=== PATIENT | male | born 1950 | race Caucasian/White ===

== ENCOUNTER 2022-11-27 17:16 | Inpatient (IN) | payer MEDICAID, MEDICARE ==
[~2022-11-27] VITALS: Ht 177 cm; Wt 76.4 kg
[2022-11-27] MEDS: RT-ALBUTEROL/IPRATROPIUM 3 ML (DUONEB) VIAL INH SCH (00:39)
[~2022-11-27 17:16] MED LIST: AMLO1CAP9 PO; ASP81TEC PO; CLOP75TA PO; DCS100C PO; DEXL60CA5 PO; DIAZ-345 PO; EZET1TAB41 PO; HYDR-3720 PO; NF-ESOM40C PO; NTR.4SL SL; OXC40TCR PO; OXYC40TA49 PO; POTA99TA7 PO; TMSL.4C PO
[2022-11-27] MEDS ORDERED: fentaNYL INJ 100 MCG/2 ML AMP IVP STA (17:22)
--- NOTE | 2022-11-27 17:22 | ED General ---
General Stated Complaint: POST CODE History of Present Illness Date Seen by Provider: Nov 27, 2022 Time Seen by Provider: 17:21 Initial Comments 72-year-old male brought in post CPR. Patient had a witnessed collapse. Local fire department/privacy officer arrived on scene or he had an AED placed. Patient had 3 shocks in the field per AED. EMS arrived and CPR was in progress. Once EMS arrived. Patient was found to have a pulse. Patient had decreased responsiveness but was breathing on his own. In route patient became little bit more responsive, groaning complaining of pain upon arrival to the ER. Patient appears to have decreased movement in his left arm however he was able to move his left leg. He appears to be favoring more to the right side and leaning more to the right than the left. He does occasionally lift his head just groans out and complains of pain but provides no further discernible speech or information. EMS knows that he does have a prior history of heart attack but his not really sure much other information on his past medical history. It is unknown how long from the collapsed to went CPR and AED shocks were administered. (DIEGO ROBIN DO) Allergies and Home Medications Allergies Coded Allergies: No Known Drug Allergies (Unverified , 03/07/12) Patient Home Medication List Home Medication List Reviewed: Yes (DIEGO ROBIN DO) Amlodipine Besylate (Amlodipine Besylate) 10 Mg Tablet, 10 MG PO HS, (Reported) Entered as Reported by: NAYELI CHEW on 11/30/221504 Last Action: Held Aspirin (Aspirin EC) 81 Mg Tablet.dr, 81 MG PO HS, (Reported) Entered as Reported by: NAYELI CHEW on 11/30/22 426 Last Action: Held Atorvastatin Calcium (Atorvastatin Calcium) 40 Mg Tablet, 40 MG PO HS, (Reported) Entered as Reported by: NAYELI CHEW on 11/30/22 150 Last Action: Continued Docusate Sodium (Docusate Sodium) 100 Mg Capsule, 200 MG PO BID, (Reported) Entered as Reported by: NAYELI CHEW on 11/30/221528 Last Action: Continued Oxycodone HCl/Acetaminophen (Oxycodone-Acetaminophen 10-325) 10 Mg-325 Mg Tablet, 1 EACH PO Q4H PRN for PAIN-MODERATE (5-7), (Reported) Entered as Reported by: NAYELI CHEW on 11/30/221504 Last Action: Held Propranolol HCl (Propranolol HCl) 20 Mg Tablet, 20 MG PO TID PRN for TREMORS, (Reported) Entered as Reported by: NAYELI CHEW on 11/30/221504 Last Action: Continued Discontinued Medications Amlodipine/Benazepril (Amlodipine-Benazepril 10-20 Mg) 1 Each Capsule, 10-20 MG PO DAILY, (Reported) Discontinued Reason: No Longer Taking Entered as Reported by: DESIRE BRADLEY on 03/04/12 100 Last Action: Discontinued Aspirin (Aspirin Ec 81 Mg) 81 Mg Tabec, 81 MG PO DAILY, (Reported) Discontinued Reason: No Longer Taking Entered as Reported by: DESIRE BRADLEY on 03/04/121003 Last Action: Discontinued Clopidogrel Bisulfate (Plavix 75 Mg) 75 Mg Tablet, 75 MG PO MON, WED, FRI, (Reported) Discontinued Reason: No Longer Taking Entered as Reported by: DESIRE BRADLEY on 03/04/121003 Last Action: Discontinued Dexlansoprazole (Dexilant) 60 Mg Bernardo., 60 MG PO DAILY, (Reported) Discontinued Reason: No Longer Taking Entered as Reported by: RUBINA LEYVA on 04/14/13 1026 Last Action: Discontinued Docusate Sodium (Colace) 100 Mg Capsule, 200 MG PO BID, (Reported) Discontinued Reason: No Longer Taking Entered as Reported by: RUBINA LEYVA on 04/14/13 1026 Last Action: Discontinued Ezetimibe/Simvastatin (Vytorin 10/80 Tablet) 1 Tab Tablet, 10-80 TAB PO DAILY, (Reported) Discontinued Reason: No Longer Taking Entered as Reported by: DESIRE BRADLEY on 03/04/121003 Last Action: Discontinued Hydrocodone Bit/Acetaminophen (Hydrocodone-Apap 10-325 Tablet) 1 Each Tablet, 2 TAB PO QID, (Reported) Discontinued Reason: No Longer Taking Entered as Reported by: RUBINA LEYVA on 04/14/13 1028 Last Action: Discontinued Nitroglycerin (Nitrostat) 0.4 Mg Tab, 0 SL PRN, (Reported) Discontinued Reason: No Longer Taking Entered as Reported by: RUBINA LEYVA on 04/14/13 1028 Last Action: Discontinued Oxycodone Hcl (Oxycontin) 40 Mg Tab.sr.12h, 40 MG PO TID, (Reported) Discontinued Reason: No Longer Taking Entered as Reported by: RUBINA LEYVA on 04/14/13 1028 Last Action: Discontinued Tamsulosin Hcl (Flomax) 0.4 Mg Cap, 0.4 MG PO HS, (Reported) Discontinued Reason: No Longer Taking Entered as Reported by: DESIRE BRADLEY on 03/04/12 1004 Last Action: Discontinued Review of Systems Review of Systems Constitutional: see HPI, other (Review of systems limited to EMS report) (DIEGO ROBIN DO) Physical Exam Vital Signs Vital Signs - First Documented 11/27/22 11/27/22 17:16 21:15 Temp 36.0 Pulse 100 Resp 24 B/P (MAP) 185/135 (152) Pulse Ox 97 O2 Delivery OxyMask O2 Flow Rate 4.00 (GALLO DE LEON MD) Vital Signs Capillary Refill : (DIEGO ROBIN DO) Height, Weight, BMI Height: '" Weight: lbs. oz. kg; BMI Method: General Appearance: Other (Disheveled, chronically ill,) HEENT: PERRL/EOMI Neck: Supple Respiratory: Lungs Clear, Normal Breath Sounds Cardiovascular: Regular Rate, Rhythm Extremity: Normal Capillary Refill, Other (Decreased movement left arm) Neurologic/Psychiatric: Aphasia; No Facial Droop; Other (DIEGO ROBIN DO) Focused Exam Lactate Level 11/27/22 17:20: Lactic Acid Level 6.05*H 11/27/22 20:25: Lactic Acid Level 1.32 (GALLO DE LEON MD) Lactic Acid Level Laboratory Tests Test 11/27/22 17:20 11/27/22 20:25 Lactic Acid Level 6.05 MMOL/L (0.50-2.00) *H 1.32 MMOL/L (0.50-2.00) (GALLO DE LEON MD) Progress/Results/Core Measures Suspected Sepsis SIRS Temperature: Pulse: Respiratory Rate: Laboratory Tests 11/27/22 17:20: Blood Pressure / Mean: 11/27/22 17:20: Laboratory Tests 11/27/22 17:20: (DIEGO ROBIN DO) Results/Orders Lab Results Laboratory Tests Test 11/27/22 17:20 11/27/22 17:45 11/27/22 18:28 11/27/22 20:25 Range/Units White Blood Count 16.6 H 4.3-11.0 10^3/uL Red Blood Count 5.16 4.30-5.52 10^6/uL Hemoglobin 15.7 13.3-17.7 g/dL Hematocrit 48 40-54 % Mean Corpuscular Volume 93 80-99 fL Mean Corpuscular Hemoglobin 30 25-34 pg Mean Corpuscular Hemoglobin Concent 33 32-36 g/dL Red Cell Distribution Width 12.5 10.0-14.5 % Platelet Count 325 130-400 10^3/uL Mean Platelet Volume 10.1 9.0-12.2 fL Immature Granulocyte % (Auto) 1 % Neutrophils (%) (Auto) 58 42-75 % Lymphocytes (%) (Auto) 34 12-44 % Monocytes (%) (Auto) 5 0-12 % Eosinophils (%) (Auto) 1 0-10 % Basophils (%) (Auto) 0 0-10 % Neutrophils # (Auto) 9.7 H 1.8-7.8 10^3/uL Lymphocytes # (Auto) 5.6 H 1.0-4.0 10^3/uL Monocytes # (Auto) 0.8 0.0-1.0 10^3/uL Eosinophils # (Auto) 0.2 0.0-0.3 10^3/uL Basophils # (Auto) 0.1 0.0-0.1 10^3/uL Immature Granulocyte # (Auto) 0.2 H 0.0-0.1 10^3/uL Neutrophils % (Manual) 53 % Lymphocytes % (Manual) 35 % Monocytes % (Manual) 6 % Reactive Lymphocytes 6 % Clumped Platelets OCC PLT CLUMP Prothrombin Time 14.1 12.2-14.7 SEC INR Comment 1.0 0.8-1.4 Activated Partial Thromboplast Time 32 24-35 SEC Sodium Level 139 135-145 MMOL/L Potassium Level 4.2 3.6-5.0 MMOL/L Chloride Level 106 98-107 MMOL/L Carbon Dioxide Level 17 L 21-32 MMOL/L Anion Gap 16 H 5-14 MMOL/L Blood Urea Nitrogen 12 7-18 MG/DL Creatinine 1.13 0.60-1.30 MG/DL Estimat Glomerular Filtration Rate 68 BUN/Creatinine Ratio 11 Glucose Level 238 H 70-105 MG/DL Lactic Acid Level 6.05 *H 1.32 0.50-2.00 MMOL/L Calcium Level 8.7 8.5-10.1 MG/DL Corrected Calcium 8.6 8.5-10.1 MG/DL Magnesium Level 2.1 1.6-2.4 MG/DL Total Bilirubin 0.4 0.1-1.0 MG/DL Aspartate Amino Transf (AST/SGOT) 69 H 5-34 U/L Alanine Aminotransferase (ALT/SGPT) 75 H 0-55 U/L Alkaline Phosphatase 66 40-136 U/L Troponin I 0.101 H <0.028 NG/ML C-Reactive Protein High Sensitivity 0.24 0.00-0.50 MG/DL B-Type Natriuretic Peptide 143.8 H <100.0 PG/ML Total Protein 6.7 6.4-8.2 GM/DL Albumin 4.1 3.2-4.5 GM/DL Serum Alcohol < 10 <10 MG/DL Urine Color YELLOW Urine Clarity CLEAR Urine pH 6.0 5-9 Urine Specific [place] >=1.030 1.016-1.022 Urine Protein 2+ H NEGATIVE Urine Glucose (UA) 1+ H NEGATIVE Urine Ketones NEGATIVE NEGATIVE Urine Nitrite NEGATIVE NEGATIVE Urine Bilirubin NEGATIVE NEGATIVE Urine Urobilinogen 1.0 < = 1.0 MG/DL Urine Leukocyte Esterase NEGATIVE NEGATIVE Urine RBC (Auto) 1+ H NEGATIVE Urine RBC 5-10 H /HPF Urine WBC 2-5 /HPF Urine Squamous Epithelial Cells 0-2 /HPF Urine Crystals NONE /LPF Urine Bacteria FEW H /HPF Urine Casts PRESENT /LPF Urine Hyaline Casts 25-50 H /LPF Urine Mucus SMALL H /LPF Urine Culture Indicated YES Urine Opiates Screen NEGATIVE NEGATIVE Urine Oxycodone Screen POSITIVE H NEGATIVE Urine Methadone Screen NEGATIVE NEGATIVE Urine Propoxyphene Screen NEGATIVE NEGATIVE Urine Barbiturates Screen NEGATIVE NEGATIVE Ur Tricyclic Antidepressants Screen NEGATIVE NEGATIVE Urine Phencyclidine Screen NEGATIVE NEGATIVE Urine Amphetamines Screen NEGATIVE NEGATIVE Urine Methamphetamines Screen NEGATIVE NEGATIVE Urine Benzodiazepines Screen NEGATIVE NEGATIVE Urine Cocaine Screen NEGATIVE NEGATIVE Urine Cannabinoids Screen NEGATIVE NEGATIVE Influenza Type A (RT-PCR) Not Detected Not Detecte Influenza Type B (RT-PCR) Not Detected Not Detecte SARS-CoV-2 RNA (RT-PCR) Not Detected Not Detecte Test 11/27/22 21:28 Range/Units Lab Scanned Report Referred Lab Report [id number] (GALLO DE LEON MD) Micro Results Microbiology 11/27/22 Urine Culture - Final, Complete NO GROWTH 11/27/22 Blood Culture - Preliminary, Resulted No growth (GALLO DE LEON MD) My Orders Orders - GALLO DE LEON MD Fentanyl Inj (Sublimaze Injection) (11/27/22 19:00) Ns Iv 1000 Ml (Sodium Chloride 0.9%) (11/27/22 19:05) Ct Angio Head/Neck (11/27/22 19:15) Fentanyl Inj (Sublimaze Injection) (11/27/22 19:15) Ct Angio Chest W (11/27/22 19:15) Iohexol Injection (Omnipaque 350 Mg/Ml 1 (11/27/22 19:45) Received Contrast (Hold Metformin- Contr (11/27/22 19:45) Ns (Ivpb) (Sodium Chloride 0.9% Ivpb Bag (11/27/22 19:45) Iohexol Injection (Omnipaque 350 Mg/Ml 1 (11/27/22 19:45) Received Contrast (Hold Metformin- Contr (11/27/22 19:45) Ns (Ivpb) (Sodium Chloride 0.9% Ivpb Bag (11/27/22 19:45) Protime With Inr (11/27/22 19:54) Partial Thromboplastin Time (11/27/22 19:54) Ed Admission (Communication) (11/27/22 20:01) Enoxaparin Injection (Lovenox Injection) (11/27/22 20:45) Metoprolol Tartrate Injection (Lopressor (11/27/22 20:45) Aspirin Suppository (Aspirin Suppository (11/27/22 20:42) (GALLO DE LEON MD) Medications Given in ED (GALLO DE LEON MD) Vital Signs/I&O 11/27/22 11/27/22 17:16 21:15 Temp 36.0 36.0 Pulse 100 78 Resp 24 16 B/P (MAP) 185/135 (152) 159/103 Pulse Ox 97 94 O2 Delivery OxyMask O2 Flow Rate 4.00 (GALLO DE LEON MD) Vital Signs/I&O Capillary Refill : (DIEGO ROBIN DO) Progress Note #1: Time: 18:26 Progress Note Patient care assumed at shift change from Dr Robin Progress Note #2: Time: 19:50 Progress Note Patient seen and evaluated by me, 72-year-old male with reported cardiac arrest status post AED shock x3 and ROSC prior to transport to this facility. My history is from outgoing provider, Dr. Robin. Evaluation today includes physical exam, CBC, chemistry, coag profile, troponin, lactic acid, blood cultures, chest x-ray, CT head without contrast, CT angio head neck and chest. Physical exam pertinent for well-developed well-nourished male in moderate distress due to some confusion and complaints of chest pain. Patient has some expressive aphasia, not really following commands. Heart is regular, lungs are crackly throughout. Chest wall is tender no subcutaneous emphysema is palpated. Abdomen is soft. Patient is noted to be moving all 4 extremities equally. Sensation appears to be grossly intact. Unable to accurately evaluate cranial nerves due to the patient's receptive aphasia as well/not following commands. Differential diagnosis based on history and physical exam includes arrhythmia, ACS, acute stroke (unlikely), sepsis, pulmonary embolism. Labs independently reviewed by me. CBC shows a leukocytosis of 16.6 with no left shift. Chem-12 shows a CO2 of 17 and anion gap of 16. Serum glucose 238. LFTs are slightly elevated. Lactic acid 6.05. Serum troponin 0.101. BNP 143.8. Alcohol is negative. Urinalysis shows few bacteria with 2+ protein and specific gravity 1.030. Patient is COVID and flu negative. Chest x-ray is independently reviewed by me, no infiltrate or effusion is noted. CT head noncontrast read by radiology as no acute intracranial abnormalities. Case is discussed with Dr. Bah on for cardiology this evening. Recommends consideration for CT angiography. Would also appreciate Lovenox 1 mg/kg twice daily, Toprol XL 100 mg p.o. now and daily. Aspirin 325 mg now and 81 mg p.o. daily. Plavix load of 300 mg and 75 mg p.o. daily. Case is also discussed with Dr. Murphy on for the [facility] service she is agreeable to CT angiography head and neck and then will do Kuet orders for the ICU. Patient has been quite agitated complaining of pain in his chest. Has been treated with IV fentanyl. Has had 2 L so far of normal saline. Based on weight at 118 kg for sepsis protocol his bolus would be 3540 mL. However do not suspect sepsis as the etiology of his lactic acidosis, likely as a result of resuscitative efforts on scene at the time of cardiac arrest. 3500 mL bolus not done at this time. Patient's systolic blood pressures in the 140s currently. At the time of this dictation coags are pending and CT angiography is being done. I did add CT angiography of the chest for completeness. ICU bed is available. supervisor pullet farm has been notified. Family member/ is at the bedside and is updated on plan of care and results. Progress Note #3: Time: 20:43 Progress Note Patient now hypertensive again 185/126. Heart rate 96. Question his ability to swallow due to his did dysarthria/aphasia. Will give Lopressor 5 mg IV, rectal aspirin and Lovenox has been added. Dr. Murphy is aware of the limitations of swallowing at this time. We will hold Plavix. Case was discussed with the eICU physician for Latonya on-call. (GALLO DE LEON MD) ECG Initial ECG Impression Date: Nov 27, 2022 Initial ECG Impression Time: 19:30 Initial ECG Rate: 96 Initial ECG Rhythm: Normal Sinus Initial ECG Intervals [place] interval 180 QRS [address] segment depression 1 mm in leads V5 and V6. Occasional PVCs noted. No ST segment elevation. (GALLO DE LEON MD) Diagnostic Imaging Diagonstic Imaging: CT Comments [facility], [facility]. [place], [place] NAME: DAVINA JIMENEZ [facility] REC#: [id number] PT STATUS: REG ER : 1950 PHYSICIAN: DIEGO ROBIN DO ADMIT DATE: 11/27/22/ER Draft Date of Exam:11/27/22 CT HEAD WO-R/O STROKE PROCEDURE: CT head wo r/o stroke. TECHNIQUE: Multiple contiguous axial images were obtained through the brain without the use of intravenous contrast. Auto Exposure Controls were utilized during the CT exam to meet ALARA standards for radiation dose reduction. INDICATION: Neuro deficit, altered mental status. COMPARISON: Unavailable. FINDINGS: No intracranial hyperdense hemorrhage or space-occupying mass. No hydrocephalus or midline shift. James-white matter differentiation is well preserved. Mild global atrophy. No hyperdense vessel sign. No acute calvarial abnormality. Mastoid air cells are clear. Near-total opacification of the ethmoid sinuses. IMPRESSION: 1. No acute intracranial hemorrhage or features of large territorial infarct. Dictated on workstation # [id number] Dict: 11/27/221810 Trans: 11/27/221814 [facility] [id number] Interpreted by: RYAN SOMMERS MD Electronically signed by: Gracie Imaging: Xray Plain Films/CT/US/NM/MRI: chest Comments [facility], [place] NAME: DAVINA JIMENEZ [facility] REC#: [id number] PT STATUS: REG ER : 1950 PHYSICIAN: DIEGO ROBIN DO ADMIT DATE: 11/27/22/ER Signed Date of Exam:11/27/22 CHEST 1 VIEW, AP/PA ONLY CHEST 1 VIEW, AP/PA ONLY Indication: Cardiac arrest Comparison: None available. Findings: No focal airspace disease in the visualized lungs. No pleural effusion or pneumothorax. Normal cardiomediastinal silhouette. Impression: 1. No acute cardiopulmonary process by portable radiography. Dictated by: Dictated on workstation # [id number] Dict: 11/27/221739 Trans: 11/27/221739 [facility] [id number] Interpreted by: RYAN SOMMERS MD Electronically signed by: RYAN SOMMERS MD 11/27/221739 (GALLO DE LEON MD) Critical Care Note Critical Care Start Time: 18:00 Stop Time: 20:44 Total Time (minutes) 40 minutes critical care time in evaluation and management of this postcode patient. Time includes initial evaluation of the patient, review and inte rpretation of labs, imaging. Review of radiologic studies. Discussion with independent historian, regarding past medical history. Discussion with Dr. Bah on for cardiology. Discussion with Dr. Murphy on for hospitalist [facility] service. Discussion with immediate eICU building energy consultant. Management of hypertension. (GALLO DE LEON MD) Departure Communication (Admissions) Time/Spoke to Admitting Phy: 19:[address] Murphy; CT Angio then will do admit orders Time/Spoke to Consulting Phy: 19:[address] Santiago (GALLO DE LEON MD) Impression Primary Impression: Cardiac arrest Additional Impressions: Elevated troponin History of CAD (coronary artery disease) Disposition: ADMITTED INPATIENT Condition: Critical Admissions Decision to Admit Reason: Admit from ER (General) Decision to Admit/Date: Nov 27, 2022 Time/Decision to Admit Time: 19:49 (GALLO DE LEON MD) Departure-Patient Inst. Referrals: NATHALIA CHRISTINE MD (PCP/Family) Primary Care Physician DIEGO ROBIN DO Nov 27, 2022 17:21 GALLO DE LEON MD Nov 27, 2022 18:30
[2022-11-27] MEDS ORDERED: ONDANSETRON 4 MG/2 ML (SDV) Z0FRAN IVP ONE (17:30)
[2022-11-27 17:32] LABS: BASOPHILS # (AUTO) 0.1 10^3/uL (0.0-0.1); BASOPHILS % (AUTO) 0 % (0-10); EOSINOPHILS # (AUTO) 0.2 10^3/uL (0.0-0.3); EOSINOPHILS % (AUTO) 1 % (0-10); HEMATOCRIT 48 % (40-54); HEMOGLOBIN 15.7 g/dL (13.3-17.7); LYMPHOCYTES # (AUTO) 5.6 10^3/uL (1.0-4.0); LYMPHOCYTES % (AUTO) 34 % (12-44); MEAN CORPUSCULAR HEMOGLOBIN 30 pg (25-34); MEAN CORPUSCULAR HGB CONC 33 g/dL (32-36); MEAN CORPUSCULAR VOLUME 93 fL (80-99); MEAN PLATELET VOLUME 10.1 fL (9.0-12.2); MONOCYTES # (AUTO) 0.8 10^3/uL (0.0-1.0); MONOCYTES % (AUTO) 5 % (0-12); NEUTROPHILS # (AUTO) 9.7 10^3/uL (1.8-7.8); NEUTROPHILS % (AUTO) 58 % (42-75); PLATELET COUNT 325 10^3/uL (130-400); WHITE BLOOD COUNT 16.6 10^3/uL (4.3-11.0)
[2022-11-27 17:41] LABS: ALBUMIN 4.1 GM/DL (3.2-4.5); CHLORIDE 106 MMOL/L (98-107); POTASSIUM 4.2 MMOL/L (3.6-5.0); SODIUM 139 MMOL/L (135-145)
[2022-11-27 17:42] LABS: CALCIUM 8.7 MG/DL (8.5-10.1)
--- NOTE | 2022-11-27 17:42 | Diagnostic Imaging Report ---
CHEST 1 VIEW, AP/PA ONLY Indication: Cardiac arrest Comparison: None available. Findings: No focal airspace disease in the visualized lungs. No pleural effusion or pneumothorax. Normal cardiomediastinal silhouette. Impression: 1. No acute cardiopulmonary process by portable radiography. Dictated by: Dictated on workstation # [id number]
[2022-11-27 17:44] LABS: GLUCOSE 238 MG/DL (70-105); TOTAL PROTEIN 6.7 GM/DL (6.4-8.2)
[2022-11-27 17:45] LABS: BILIRUBIN,TOTAL 0.4 MG/DL (0.1-1.0); CARBON DIOXIDE 17 MMOL/L (21-32)
[2022-11-27 17:47] LABS: ALKALINE PHOSPHATASE 66 U/L (40-136)
[2022-11-27 17:48] LABS: CREATININE SERUM 1.13 MG/DL (0.60-1.30); GFR ESTIMATED 68
[2022-11-27 17:49] LABS: BUN/CREATININE RATIO 11
[2022-11-27 17:50] LABS: ALANINE AMINOTRANSFERASE 75 U/L (0-55)
[2022-11-27 17:51] LABS: MAGNESIUM 2.1 MG/DL (1.6-2.4)
[2022-11-27 17:56] LABS: BILIRUBIN,URINE NEGATIVE (NEGATIVE); CLARITY,URINE CLEAR; COLOR,URINE YELLOW; GLUCOSE, URINE (UA) 1+ (NEGATIVE); KETONES,URINE NEGATIVE (NEGATIVE); LEUKOCYTE ESTERASE ,URINE NEGATIVE (NEGATIVE); NITRITE,URINE NEGATIVE (NEGATIVE); PROTEIN,URINE 2+ (NEGATIVE)
[2022-11-27 17:57] LABS: LYMPHOCYTES % (MANUAL) 35 %; MONOCYTES % (MANUAL) 6 %; NEUTROPHILS % (MANUAL) 53 %
[2022-11-27 17:58] LABS: PLATELET CLUMPS OCC PLT CLUMP; REACTIVE LYMPHOCYTES 6 %
[2022-11-27 18:12] LABS: BACTERIA,URINE FEW /HPF; HYALINE CASTS, URINE 25-50 /LPF; SQUAMOUS EPITHELIAL CELL,UR 0-2 /HPF
--- NOTE | 2022-11-27 18:15 | Diagnostic Imaging Report ---
PROCEDURE: CT head wo r/o stroke. TECHNIQUE: Multiple contiguous axial images were obtained through the brain without the use of intravenous contrast. Auto Exposure Controls were utilized during the CT exam to meet ALARA standards for radiation dose reduction. INDICATION: Neuro deficit, altered mental status. COMPARISON: Unavailable. FINDINGS: No intracranial hyperdense hemorrhage or space-occupying mass. No hydrocephalus or midline shift. James-white matter differentiation is well preserved. Mild global atrophy. No hyperdense vessel sign. No acute calvarial abnormality. Mastoid air cells are clear. Near-total opacification of the ethmoid sinuses. IMPRESSION: 1. No acute intracranial hemorrhage or features of large territorial infarct. Dictated by: Dictated on workstation # [id number]
[2022-11-27] MEDS ORDERED: fentaNYL INJ 100 MCG/2 ML AMP IVP ONE ×2 (19:00→19:15)
[2022-11-27] MEDS ORDERED: NS IV 1000 ML 1,000 ML IV STA (19:05)
[2022-11-27] MEDS ORDERED: IOHEXOL 350 MG/ML 100 ML (OMNIPAQUE 350) VIAL IV ONE ×2 (19:45)
[2022-11-27] MEDS ORDERED: HOLD METFORMIN - RECEIVED CONTRAST 20 ML VIAL IV SCH ×2 (19:45)
[2022-11-27] MEDS ORDERED: NS 100 ML (IVPB) BAG IV ONE ×2 (19:45)
--- NOTE | 2022-11-27 20:18 | Diagnostic Imaging Report ---
PROCEDURE: CT angiography of the head and CT angiography of the neck with and without contrast. TECHNIQUE: Contiguous noncontrast images were obtained from the skull base through the vertex. After intravenous contrast administration, helical CT angiography of the neck was performed. Source data was reformatted into 3D MIP projections. Delayed post contrast acquisition was also obtained. Auto Exposure Controls were utilized during the CT exam to meet ALARA standards for radiation dose reduction. INDICATION: Cardiac arrest, aphasia. COMPARISON: CTA chest performed concurrently. FINDINGS: The aortic arch is normal. No stenosis or occlusion within the bilateral common carotid arteries. Atherosclerotic plaquing causes approximately 50% stenosis at the origin of the right ICA. There is approximately 30% stenosis at the origin of the left ICA due to atherosclerotic plaquing. The cervical division of bilateral internal carotid arteries are patent without dissection flaps. Left vertebral artery is dominant. There are scattered areas of mild stenoses in the interosseous segments of the vertebral arteries, but no high-grade stenosis or occlusion within the vertebral arteries. No cervical lymphadenopathy. Thyroid is normal. Airway is patent. No fracture in the cervical spine. The bilateral distal internal carotid arteries are patent and have no terminal aneurysm. The M1 and M2 divisions of the middle cerebral arteries are patent. Anterior cerebral arteries are patent. Basilar artery is widely patent without terminal aneurysm. Posterior cerebral arteries are patent. Dural venous sinuses are patent. No pathologic enhancement on delayed phase imaging. IMPRESSION: 1. No intracranial large vessel occlusion or saccular aneurysm. 2. Patent dural venous sinuses. 3. Mild to moderate stenosis of the proximal internal carotid artery origins, worse on the right. Dictated by: Dictated on workstation # [id number]
--- NOTE | 2022-11-27 20:25 | Diagnostic Imaging Report ---
PROCEDURE: CT angiography Chest TECHNIQUE: After intravenous administration of contrast, thin section axial CT angiography of the chest was performed. 3D MIP reconstructions were made. All CT scans use one or more of the following dose optimizing techniques: automated exposure control, MA and/or KvP adjustment based on a patient size and exam type, or iterative reconstruction. INDICATION: Cardiac arrest COMPARISON: None available FINDINGS: Vasculature: No pulmonary emboli. No CT evidence of pulmonary hypertension or right ventricular strain. Normal caliber thoracic aorta. Aorta is not substantially opacify to assess for dissection. Heart and mediastinum: Visualized thyroid is normal. No supraclavicular, axillary, or intra-thoracic lymphadenopathy. The heart is normal in size without pericardial effusion. Pleura: No pleural effusion or pneumothorax. Lungs and airway: No endoluminal lesion in the trachea or central bronchi. No pulmonary mass, nodule or consolidation. Upper abdomen: Allowing for the phase of contrast, no acute abnormality in the upper abdomen is seen. Musculoskeletal: No concerning osseous lesion. IMPRESSION: 1. No pulmonary emboli. 2. No pneumonia or pulmonary edema. Dictated by: Dictated on workstation # [id number]
[2022-11-27] MEDS ORDERED: ASPIRIN 300 MG (5 GR) SUPPOSITORY PR STA (20:42)
[2022-11-27] MEDS ORDERED: meTOprolol 5 MG/5 ML (LOPRESSOR) VIAL IV ONE (20:45)
[2022-11-27] MEDS ORDERED: ENOXAPARIN 60 MG/0.6 ML (LOVENOX) SYR SC ONE (20:45)
[2022-11-27] MEDS ORDERED: LORazepam INJ 2 MG/ML (ATIVAN) VIAL IVP PRN (21:15)
[2022-11-27] MEDS ORDERED: BISACODYL 10 MG SUPP (DULCOLAX) PR PRN (21:15)
[2022-11-27] MEDS ORDERED: ONDANSETRON 4 MG/2 ML (SDV) Z0FRAN IV PRN (21:15)
[2022-11-27] MEDS ORDERED: NS IV 500 ML 500 ML IV PRN (21:15)
[2022-11-27] MEDS ORDERED: MILK OF MAGNESIA 400 MG/5 ML 30 ML UDC PO PRN (21:15)
[2022-11-27] MEDS ORDERED: ONDANSETRON 4 MG (ZOFRAN) ORAL DISSOLVE TAB PO PRN (21:15)
[2022-11-27] MEDS ORDERED: CALCIUM CARBONATE 500 MG (TUMS) TAB.CHEW PO PRN (21:15)
[2022-11-27] MEDS ORDERED: ACETAMINOPHEN 325 MG TABLET PO PRN (21:15)
[2022-11-27] MEDS ORDERED: ANTACID SUSP 30 ML UDC (MYLANTA) PO PRN (21:15)
[2022-11-27] MEDS ORDERED: diphenhydrAMINE 25 MG TAB (BENADRYL) PO PRN (21:15)
[2022-11-27] MEDS ORDERED: diphenhydrAMINE 50 MG/ML INJ (BENADRYL) IVP PRN (21:15)
[2022-11-27] MEDS ORDERED: polyethylene glycoL POWDER 17 GM (MIRALAX) PACK PO PRN (21:15)
[2022-11-27] MEDS ORDERED: CLOPIDOGREL 300 MG (PLAVIX) TABLET PO ONE ×2 (21:15→22:06)
[2022-11-27] MEDS ORDERED: LACTULOSE SYRUP 10GM/15ML (ENULOSE) 30ML UDC PO PRN (21:15)
[2022-11-27 21:28] LABS: PROTHROMBIN TIME PATIENT 14.1 SEC (12.2-14.7)
[2022-11-27] MEDS: HYDROmorphone 2 MG/ML VIAL (DILAUDID) IV PRN (21:40)
[2022-11-27] MEDS: NS IV 1000 ML 1,000 ML IV SCH (21:40)
[2022-11-27] MEDS ORDERED: cefTRIAXone 1 GM PRE-MIX 50 ML IV ONE (22:45)
[2022-11-27 22:51] LABS: ABG BASE EXCESS -4.7 MMOL/L (-2.5-2.5); ABG OXYGEN SATURATION 94 % (94-100); ABG PCO2 47 MMHG (35-45); ABG PO2 77 MMHG (79-93); ABG TCO2 22.5 MMOL/L (21.0-31.0)
[2022-11-27 22:52] LABS: ALLENS TEST YES-POS; INSPIRED O2 2L; PATIENT TEMP 36.8; VENTILATOR NO
[2022-11-27 22:53] LABS: ABG PH 7.27 (7.37-7.43)
[2022-11-27 22:57] LABS: AMPHETAMINE SCREEN, URINE NEGATIVE (NEGATIVE); BARBITURATE SCREEN URINE NEGATIVE (NEGATIVE); BENZODIAZEPINES SCREEN URINE NEGATIVE (NEGATIVE); CANNABINOID SCREEN, URINE NEGATIVE (NEGATIVE); COCAINE SCREEN URINE NEGATIVE (NEGATIVE); METHADONE STAT NEGATIVE (NEGATIVE); OPIATE SCREEN URINE NEGATIVE (NEGATIVE); OXYCODONE STAT POSITIVE (NEGATIVE); PROPOXYPHENE STAT NEGATIVE (NEGATIVE); TRICYCLIC ANTIDEPRESSANTS SCRE NEGATIVE (NEGATIVE)
[2022-11-27] MEDS: hydrALAZINE (APESOLINE) 20 MG/ML VIAL IV PRN (22:59)
[2022-11-27] MEDS: inSUlin ASPART (NovoLOG) 1 UNIT/0.01 ML (CHARGE PER UNIT) SC SCH (23:10)
[2022-11-27 23:11] VITALS: BP 185/135
[2022-11-27] MEDS ORDERED: RT-ALBUTEROL SULF 2.5 MG/3 ML PRE-MIX VIAL IH PRN (23:45)
[2022-11-27] MEDS: meTOprolol 5 MG/5 ML (LOPRESSOR) VIAL IV SCH (23:51)
[2022-11-28] MEDS ORDERED: RT-ALBUTEROL/IPRATROPIUM 3 ML (DUONEB) VIAL INH PRN
[2022-11-28 00:43] VITALS: BP 141/76
[2022-11-28] MEDS: HYDROmorphone 2 MG/ML VIAL (DILAUDID) IV PRN ×8 (00:43→19:34)
--- NOTE | 2022-11-28 01:18 | Tele-ICU Progress Note ---
Progress Note eICU 72 yo man had out of hospital arrest and was diagnosed and treated per AED for Vfib- initially by local fire dept, then EMS arrived. Pt responded to defib x3 and CPR. Little information otherwise known Old records from 2012. PMHx; as per old notes on Rx he has been on amlodipine/benzapsil for HTN and has Rx in past chart documentation for hydrocodone, oxycodone, statin Rx On admit to ED he was significantly hypertensive and confused in thinking but no respiratory or focal motor deficiency acc to ED eval. CT Angio Neck: IMPRESSION: 1. No intracranial large vessel occlusion or saccular aneurysm. 2. Patent dural venous sinuses. 3. Mild to moderate stenosis of the proximal internal carotid artery origins, worse on the right. CT ANGIO Chest: IMPRESSION: 1. No pulmonary emboli. 2. No pneumonia or pulmonary edema. CT Head: IMPRESSION: 1. No acute intracranial hemorrhage or features of large territorial infarct. CXR: IMPRESSION: 1. No acute intracranial hemorrhage or features of large territorial infarct. Labs: Na 139 K 4.2 Cl 106 Bicarb 17 Glucose 238 BUN 12 Cr 1.13 Ca 8.7 Mg 2.1 T Pro 6.7 Alb 4.1 AST 69 ALT 75 Lactate on admit 6.05, repeat 1.32 Trop 0.101 CBC WBCs 16,600 Hgb 15.7 Plts 325,000 Normal diff P 58 L 34 [place] 5 Eos 1 UA + glucose rbcs 5-10 hyaline 25-50 , mucous, protein ABG 7.27/47/77/21 - on 2 lpm NC EKG sinus rate 96 with intraventricular conduction delay ORS 14 Per video- pt is responding to staff, able to pass urine on his own, is still confused and c/o localized chest pain where shocks had been given. Does not want to take deep breaths. A: Post acute Cardiac arrest, Hypercarbic Respiratory Failure, Chest pain - elev trop- post multiple shocks and chest pain- P: Cardiology has started pt on Lovenox,ASA, Plavix. However, since pt is still somewhat confused, will presently keep NPO . Add on data: Check Urine toxicology- + oxycodone . He has been started on Dilaudid per another treating physician also due to chest pain. Low spontaneous deep breaths spontaneously due to pain -Will add BiPAP 8/5 rate 18 30% and follow for adequate breathing while on pain Rx -keep sats 94-98% and adjust BiPAP appropriately to assist- d/w respiratory therapy. Repeat ABGs 5 AM. Add repeat CBC, Blood cultures urine culture- pending , started Ceftriaxone for urosespsis HOLD AM meds UNTIL swallowing evaluation completed in AM . Focused Exam Lactate Level 11/27/22 17:20: Lactic Acid Level 6.05*H 11/27/22 20:25: Lactic Acid Level 1.32 Height, Weight, BMI Height: '" Weight: lbs. oz. kg; 28.28 BMI Method: SUSU VITAL DO Nov 28, 2022 01:18
[2022-11-28] MEDS: RT-ALBUTEROL/IPRATROPIUM 3 ML (DUONEB) VIAL INH SCH ×3 (02:23→10:36)
[2022-11-28] MEDS: inSUlin ASPART (NovoLOG) 1 UNIT/0.01 ML (CHARGE PER UNIT) SC SCH ×3 (03:50→12:00)
[2022-11-28 04:04] LABS: BASOPHILS % (AUTO) 0 % (0-10); EOSINOPHILS % (AUTO) 0 % (0-10); HEMATOCRIT 43 % (40-54); HEMOGLOBIN 14.4 g/dL (13.3-17.7); LYMPHOCYTES # (AUTO) 1.3 10^3/uL (1.0-4.0); LYMPHOCYTES % (AUTO) 11 % (12-44); MEAN CORPUSCULAR HEMOGLOBIN 31 pg (25-34); MEAN CORPUSCULAR HGB CONC 34 g/dL (32-36); MEAN CORPUSCULAR VOLUME 91 fL (80-99); MEAN PLATELET VOLUME 10.2 fL (9.0-12.2); MONOCYTES # (AUTO) 0.8 10^3/uL (0.0-1.0); MONOCYTES % (AUTO) 7 % (0-12); NEUTROPHILS # (AUTO) 8.9 10^3/uL (1.8-7.8); NEUTROPHILS % (AUTO) 81 % (42-75); PLATELET COUNT 266 10^3/uL (130-400)
[2022-11-28 04:11] LABS: ABG BASE EXCESS -3.7 MMOL/L (-2.5-2.5); ABG OXYGEN SATURATION 92 % (94-100); ABG PCO2 38 MMHG (35-45); ABG PH 7.36 (7.37-7.43); ABG PO2 72 MMHG (79-93); ABG TCO2 21.9 MMOL/L (21.0-31.0); ALLENS TEST YES-POS; INSPIRED O2 30%
[2022-11-28 04:12] LABS: PATIENT TEMP 37.5; VENTILATOR NO
[2022-11-28 04:22] LABS: ALBUMIN 3.7 GM/DL (3.2-4.5); BILIRUBIN,TOTAL 0.5 MG/DL (0.1-1.0); CALCIUM 8.2 MG/DL (8.5-10.1); CREATININE SERUM 0.84 MG/DL (0.60-1.30); MAGNESIUM 1.7 MG/DL (1.6-2.4); PHOSPHORUS 2.7 MG/DL (2.3-4.7); POTASSIUM 4.1 MMOL/L (3.6-5.0)
[2022-11-28] MEDS: POTASSIUM CL 10MEQ/50ML IVPB 50 ML IV SCH (04:25)
[2022-11-28] MEDS: MAGNESIUM 1 GM/100 ML IVPB 100 ML IV SCH ×5 (04:25→07:39)
[2022-11-28] MEDS: KCL 20 MEQ TAB (K-DUR) PO SCH (04:26)
[2022-11-28] MEDS ORDERED: MAGNESIUM 1 GM/100 ML IVPB 300 ML IV ONE (04:28)
[2022-11-28] MEDS ORDERED: inSUlin ASPART (NovoLOG) 1 UNIT/0.01 ML (CHARGE PER UNIT) SC SCH (06:00)
[2022-11-28] MEDS: meTOprolol 5 MG/5 ML (LOPRESSOR) VIAL IV SCH ×3 (06:01→16:32)
--- NOTE | 2022-11-28 07:23 | History & Physical-Hospitalist ---
History of Present Illness HPI/Chief Complaint CC: s/p cardiac arrest with NSTEMI HPI: This is a 72yoWM clinic patient of [facility] who has a h/o PD and COPD and continued smoking who presents to the ICU following ER w/u after arriving via EMS s/p ROSC after cardiac arrest without intubation required. Troponin was slightly elevated on admit but more so this am on repeat. Dr Santiago consulted and recommended cardiac cath but he is hesitant. Family at bedside. Patient re port he has chest pain from the CPR compressions performed when he was in cardiac arrest. Patient remains on O2. He appears to be very debilitated and chronically ill. Source: patient, family, RN/MD, EMS, old records Date Seen 11/28/22 Time Seen by a Provider: 11:00 Attending Physician Miki Harper MD PCP Admitting Physician: Crista Murphy DO Attending Physician: Crista Murphy DO Referring Physician Date of Admission Nov 27, 2022 at 21:28 Home Medications & Allergies Home Medications Reviewed patient Home Medication Reconciliation performed by pharmacy medication reconciliations data acquisition technician and/or nursing. Patients Allergies have been reviewed. Allergies Allergies Coded Allergies No Known Drug Allergies (Unverified03/07/12) Past [id number]-[id number] Hx Patient Social History Marrital Status: single Employed/Student: retired Tobacco Use?: Yes Tobacco type used: Cigarettes Smoking Status: Current Everyday Smoker Use of E-Cig and/or Vaping dev: No Substance use?: No Alcohol Use?: No Pt feels they are or have been: No Immunizations Up To Date Tetanus Booster (TDap): Unknown Hepatitis A: No Hepatitis B: No Current Status Advance Directives: No Communicates: Verbally Primary Language: Djiboutian Preferred Spoken Language: Djiboutian Is interpretation needed?: No Implanted or Applied Medical D: None Past Medical History COPD Coronary Artery Disease, High Cholesterol, Hypertension Review of Systems Constitutional: see HPI Cardiovascular: chest pain Physical Exam Physical Exam Vital Signs Vital Signs - First Documented 11/27/22 11/27/22 11/27/22 17:16 21:15 23:11 Temp 36.0 Pulse 100 Resp 24 B/P (MAP) 185/135 (152) Pulse Ox 97 O2 Delivery OxyMask O2 Flow Rate 4.00 FiO2 21 Capillary Refill : Less Than 3 Seconds Height, Weight, BMI Height: '" Weight: lbs. oz. kg; 28.21 BMI Method: General Appearance: No Apparent Distress, Chronically ill Respiratory: No Accessory Muscle Use, No Respiratory Distress, Decreased Breath Sounds Cardiovascular: Regular Rate, Rhythm Neurologic/Psychiatric: Alert, Oriented x3, No Motor/Sensory Deficits, Normal Mood/Affect Results Results/Procedures Labs Laboratory Tests 11/27/22 17:20 11/28/22 03:45 Patient resulted labs reviewed. Assessment/Plan Admission Diagnosis Assessment: s/p cardiac arrest s/p ROSC without intubation required NSTEMI declines cardiac cath currently Tremor/PD? HTN HLP COPD Smoker Chronic debility Plan: Home meds Dr Santiago appreciated Pain meds O2 EICU appreciated Admission Status: Inpatient Order (span 2 midnights) Reason for Inpatient Admission: cardiac arrest requiring cath for NSTEMI Diagnosis/Problems Diagnosis/Problems (1) Cardiac arrest Status: Acute (2) History of CAD (coronary artery disease) Status: Acute (3) Elevated troponin Status: Acute CRISTA MURPHY DO Nov 28, 2022 07:23
[2022-11-28] MEDS ORDERED: ENOXAPARIN 120 MG/0.8 ML (LOVENOX) SC SCH (09:00)
[2022-11-28] MEDS: ASPIRIN 300 MG (5 GR) SUPPOSITORY PR SCH (09:00)
--- NOTE | 2022-11-28 09:28 | Diagnostic Imaging Report ---
INDICATION: Cardiac arrest, post code. TECHNIQUE: Single view chest 4:49 AM. CORRELATION STUDY: 11/27/2022 FINDINGS: Heart size enlarged, mediastinal is mildly prominent. There is what appears to be development of pulmonary vascular congestion and perihilar edema, at least moderate in severity. No consolidating infiltrate. No definitive acute displaced fracture. IMPRESSION: 1. Development of pulmonary vascular congestion and perihilar edema, adversely changed from prior. Dictated by: Dictated on workstation # [id number]
[2022-11-28] MEDS: ASPIRIN 81 MG CHEW (CHILDREN'S ASA) PO SCH (10:28)
[2022-11-28] MEDS: NS IV 1000 ML 1,000 ML IV SCH (10:28)
[2022-11-28] MEDS: DOCUSATE SODIUM 100 MG (COLACE) CAP PO SCH ×2 (10:29→21:00)
[2022-11-28] MEDS: SENNOSIDES 8.6 MG (SENOKOT) TAB PO SCH ×2 (10:29→21:00)
[2022-11-28] MEDS: CLOPIDOGREL 75 MG (PLAVIX) TABLET PO SCH (10:29)
--- NOTE | 2022-11-28 11:04 | Consultation-Cardiology ---
HPI-Cardiology Cardiology Consultation: Date of Consultation 11/28/22 Time Seen by a Provider: 09:50 Date of Admission Attending Physician Miki Harper MD Admitting Physician Admitting Physician: Crista Murphy DO Attending Physician: Crista Murphy DO Consulting Physician TONY CARVALHO MD, MA, FACP, FACC, [facility] [place], CCDS Physician requesting consult: Dr Murphy HPI: Chief Complaint: Reason for consult: Cardio-resp arrest 72 yo man who was admitted to Dr Murphy's service last night after an arrest that is reported to have been witnessed but details are unclear. The patient reports having had some discomfort in the mid chest prior to that like the one that he has had intermittently for several years and which is a feeling mild pressure and which may last up to an hour or more and which is non-radiating and not associated with other symptoms. After yesterday's episode, he passed out and has no recollection of events after that until he came around fully in the early hours of today. He is stated to have been attended by the Fire Dept first and received shocks delivered by AED and CPR was performed. When EMS arrived, he had a pulse and was breathing. He was brought to the ER where he remained somewhat obtunded and confused for several hours and gradually recovered his mental faculties. Currently, his only complaint is marked generalized chest wall and sternal soreness from chest compression. This is a feeling of pain and is entirely different from the chest discomfort he had experienced prior to this event. 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) He denies palp He denies previous syncope He denies n/v/d He reports a h/o a heart attack many years ago after which he followed with Dr Aguilera in Card consult for many years but hasn't seen a ore puncher in the past several years He denies swelling Review of Systems-Cardiology Review of Systems Constitutional: No lightheadedness, No weight loss Eyes: No vision change Ears/Nose/Throat: No ear discharge, No nasal drainage, No recent hearing loss Respiratory: As described under HPI Cardiovascular: As described under HPI Gastrointestinal: As described under HPI Genitourinary: No dysuria, No hematuria, No urine frequency changes Musculoskeletal: As describe under HPI Skin: No rash, No ulcerations Psychiatric/Neurological: No seizure, No focal weakness, No syncope Hematologic: No bleeding abnormalities UIO-Vbryjg-Wivfss Hx Patient Social History Smoking Status: Current Everyday Smoker Have you traveled recently?: No Alcohol Use?: No Pt feels they are or have been: No Tobacco type used: Cigarettes Past Medical History PMH As described under Assessment. Family Medical History Family Medical History: He does not report fam h/o early CAD or SCD Allergies and Home Medications Allergies Coded Allergies: No Known Drug Allergies (Unverified , 03/07/12) Patient Home Medication List Home Medication List Reviewed: Yes Amlodipine/Benazepril (Amlodipine-Benazepril 10-20 Mg) 1 Each Capsule, 10-20 MG PO DAILY, (Reported) Entered as Reported by: DESIRE BRADLEY on 03/04/12 1004 Aspirin (Aspirin Ec 81 Mg) 81 Mg Tabec, 81 MG PO DAILY, (Reported) Entered as Reported by: DESIRE BRADLEY on 03/04/12 1004 Clopidogrel Bisulfate (Plavix 75 Mg) 75 Mg Tablet, 75 MG PO MON, WED, WED, (Reported) Entered as Reported by: DESIRE BRADLEY on 03/04/12 1004 Dexlansoprazole (Dexilant) 60 Mg Cap, 60 MG PO DAILY, (Reported) Entered as Reported by: RUBINA LEYVA on 04/14/13 1026 Docusate Sodium (Colace) 100 Mg Capsule, 200 MG PO BID, (Reported) Entered as Reported by: RUBINA LEYVA on 04/14/13 1026 Ezetimibe/Simvastatin (Vytorin 10/80 Tablet) 1 Tab Tablet, 10-80 TAB PO DAILY, (Reported) Entered as Reported by: DESIRE BRADLEY on 03/04/12 1004 Hydrocodone Bit/Acetaminophen (Hydrocodone-Apap 10-325 Tablet) 1 Each Tablet, 2 TAB PO QID, (Reported) Entered as Reported by: RUBINA LEYVA on 04/14/13 1028 Nitroglycerin (Nitrostat) 0.4 Mg Tab, 0 SL PRN, (Reported) Entered as Reported by: RUBINA LEYVA on 04/14/13 1028 Oxycodone Hcl (Oxycontin) 40 Mg Tab.sr.12h, 40 MG PO TID, (Reported) Entered as Reported by: RUBINA LEYVA on 04/14/13 1028 Tamsulosin Hcl (Flomax) 0.4 Mg Cap, 0.4 MG PO HS, (Reported) Entered as Reported by: DESIRE BRADLEY on 03/04/12 1004 Physical Exam-Cardiology Physical Exam Vital Signs/I&O 11/27/22 11/27/22 11/27/22 11/28/22 23:00 23:11 23:35 00:00 Temp 36.0 Pulse 85 100 69 Resp 33 25 B/P (MAP) 146/104 (118) 123/65 (84) Pulse Ox 98 97 96 95 O2 Delivery OxyMask Nasal Cannula OxyMask O2 Flow Rate 2.00 2.00 2.00 FiO2 21 11/28/22 11/28/22 11/28/22 11/28/22 00:25 00:42 00:43 01:00 Temp 37.2 Pulse 76 64 70 Resp 25 32 B/P (MAP) 134/70 (91) Pulse Ox 93 95 O2 Delivery Nasal Cannula NIV Bilevel O2 Flow Rate 2.00 30.00 30.00 0.30 11/28/22 11/28/22 11/28/22 11/28/22 01:00 01:28 02:00 02:25 Pulse 69 66 Resp 17 29 B/P (MAP) 136/68 (90) 137/65 (89) Pulse Ox 97 96 O2 Delivery NIV Bilevel Nasal Cannula Nasal Cannula Nasal Cannula O2 Flow Rate 30.00 2.00 2.00 2.00 11/28/22 11/28/22 11/28/22 11/28/22 03:00 03:50 03:50 04:00 Temp 37.5 Pulse 74 66 66 Resp 27 20 23 B/P (MAP) 159/81 (107) 162/86 (111) 161/71 (101) Pulse Ox 96 96 95 94 O2 Delivery Nasal Cannula Nasal Cannula Nasal Cannula Nasal Cannula O2 Flow Rate 2.00 2.00 2.00 2.00 11/28/22 11/28/22 11/28/22 11/28/22 04:07 05:00 06:00 06:16 Pulse 53 67 Resp 16 28 B/P (MAP) 151/65 (93) 152/77 (102) Pulse Ox 94 95 95 O2 Delivery Nasal Cannula Nasal Cannula Nasal Cannula Nasal Cannula O2 Flow Rate 4.00 4.00 4.00 2.00 11/28/22 11/28/22 11/28/22 11/28/22 07:00 07:00 07:54 08:00 Temp 36.3 Pulse 67 65 57 Resp 24 23 B/P (MAP) 141/73 (95) 135/57 (83) Pulse Ox 95 97 O2 Delivery Nasal Cannula Nasal Cannula O2 Flow Rate 4.00 4.00 11/28/22 11/28/22 11/28/22 09:00 10:00 10:38 Pulse 63 66 Resp 19 20 B/P (MAP) 170/81 (110) 176/81 (112) Pulse Ox 97 95 96 O2 Delivery Nasal Cannula Nasal Cannula Nasal Cannula O2 Flow Rate 4.00 4.00 2.00 11/28/22 00:00 Intake Total 1350 ml Output Total 215 ml Balance 1135 ml Capillary Refill : Less Than 3 Seconds Constitutional: AAO x 3, well-developed, well-nourished HEENT: EOMI, hearing is well preserved; No xanthelasmas are seen Neck: No carotid bruit; carotid pulses are 2 + bilaterally, with good upstrokes Cardiovascular: regular rate-rhythm, S1 and S2, systolic murmur (soft SHAYLA at card base) Gastrointestinal: No tender; soft; No guarding, No rebound; audible bowel sounds Extremities: No clubbing, No cyanosis, No significant edema Neurologic/Psychiatric: oriented x 3, other (moves all limbs) Skin: No rash on exposed areas, No ulcerations on exposed areas Data Review Labs Laboratory Tests 11/27/22 17:20: White Blood Count 16.6H, Red Blood Count 5.16, Hemoglobin 15.7, Hematocrit 48, Mean Corpuscular Volume 93, Mean Corpuscular Hemoglobin 30, Mean Corpuscular Hemoglobin Concent 33, Red Cell Distribution Width 12.5, Platelet Count 325, Mean Platelet Volume 10.1, Immature Granulocyte % (Auto) 1, Neutrophils (%) (Auto) 58, Lymphocytes (%) (Auto) 34, Monocytes (%) (Auto) 5, Eosinophils (%) (Auto) 1, Basophils (%) (Auto) 0, Neutrophils # (Auto) 9.7H, Lymphocytes # (Auto) 5.6H, Monocytes # (Auto) 0.8, Eosinophils # (Auto) 0.2, Basophils # (Auto) 0.1, Immature Granulocyte # (Auto) 0.2H, Neutrophils % (Manual) 53, Lymphocytes % (Manual) 35, Monocytes % (Manual) 6, Reactive Lymphocytes 6, Clumped Platelets OCC PLT CLUMP, Prothrombin Time 14.1, INR Comment 1.0, Activated Partial Thromboplast Time 32, Sodium Level 139, Potassium Level 4.2, Chloride Level 106, Carbon Dioxide Level 17L, Anion Gap 16H, Blood Urea Nitrogen 12, Creatinine 1.13, Estimat Glomerular Filtration Rate 68, BUN/Creatinine Ratio 11, Glucose Level 238H, Lactic Acid Level 6.05*H, Calcium Level 8.7, Corrected Calcium 8.6, Magnesium Level 2.1, Total Bilirubin 0.4, Aspartate Amino Transf (AST/SGOT) 69H, Alanine Aminotransferase (ALT/SGPT) 75H, Alkaline Phosphatase 66, Troponin I 0.101H, C-Reactive Protein High Sensitivity 0.24, B-Type Natriuretic Peptide 143.8H, Total Protein 6.7, Albumin 4.1, Serum Alcohol < 10 11/27/22 17:45: Urine Color YELLOW, Urine Clarity CLEAR, Urine pH 6.0, Urine Specific Raymond >=1.030, Urine Protein 2+H, Urine Glucose (UA) 1+H, Urine Ketones NEGATIVE, Urine Nitrite NEGATIVE, Urine Bilirubin NEGATIVE, Urine Urobilinogen 1.0, Urine Leukocyte Esterase NEGATIVE, Urine RBC (Auto) 1+H, Urine RBC 5-10H, Urine WBC 2- 5, Urine Squamous Epithelial Cells 0-2, Urine Crystals NONE, Urine Bacteria FEWH , Urine Casts PRESENT, Urine Hyaline Casts 25-50H, Urine Mucus SMALLH, Urine Culture Indicated YES, Urine Opiates Screen NEGATIVE, Urine Oxycodone Screen POS ITIVEH, Urine Methadone Screen NEGATIVE, Urine Propoxyphene Screen NEGATIVE, Urine Barbiturates Screen NEGATIVE, Ur Tricyclic Antidepressants Screen NEGATIVE, Urine Phencyclidine Screen NEGATIVE, Urine Amphetamines Screen NEGATIVE, Urine Methamphetamines Screen NEGATIVE, Urine Benzodiazepines Screen NEGATIVE, Urine Cocaine Screen NEGATIVE, Urine Cannabinoids Screen NEGATIVE 11/27/22 18:28: Influenza Type A (RT-PCR) Not Detected, Influenza Type B (RT-PCR) Not Detected, SARS-CoV-2 RNA (RT-PCR) Not Detected 11/27/22 20:25: Lactic Acid Level 1.32 11/27/22 22:40: Blood Gas Puncture Site R RAD, Blood Gas Patient Temperature 36.8, Arterial Blood pH 7.27*L, Arterial Blood Partial Pressure CO2 47H, Arterial Blood Partial Pressure O2 77L, Arterial Blood HCO3 21L, Arterial Blood Total CO2 22.5, Arterial Blood Oxygen Saturation 94, Arterial Blood Base Excess -4.7L, Karthik Test YES-POS, Blood Gas Ventilator Setting NO, Blood Gas Inspired Oxygen 2L 11/27/22 23:07: Glucometer 143H 11/28/22 03:45: White Blood Count 11.0, Red Blood Count 4.70, Hemoglobin 14.4, Hematocrit 43, Mean Corpuscular Volume 91, Mean Corpuscular Hemoglobin 31, Mean Corpuscular Hemoglobin Concent 34, Red Cell Distribution Width 12.6, Platelet Count 266, Mean Platelet Volume 10.2, Immature Granulocyte % (Auto) 1, Neutrophils (%) (Auto) 81H, Lymphocytes (%) (Auto) 11L, Monocytes (%) (Auto) 7, Eosinophils (%) (Auto) 0, Basophils (%) (Auto) 0, Neutrophils # (Auto) 8.9H, Lymphocytes # (Auto) 1.3, Monocytes # (Auto) 0.8, Eosinophils # (Auto) 0.0, Basophils # (Auto) 0.0, Immature Granulocyte # (Auto) 0.1, Sodium Level 139, Potassium Level 4.1, Chloride Level 109H, Carbon Dioxide Level 18L, Anion Gap 12, Blood Urea Nitrogen 13, Creatinine 0.84, Estimat Glomerular Filtration Rate 92, BUN/Creatinine Ratio 15, Glucose Level 125H, Calcium Level 8.2L, Corrected Calcium 8.4L, Phosphorus Level 2.7, Magnesium Level 1.7, Total Bilirubin 0.5, Aspartate Amino Transf (AST/SGOT) 51H, Alanine Aminotransferase (ALT/SGPT) 53, Alkaline Phosphatase 46, Troponin I 1.428*H, Total Protein 6.0L, Albumin 3.7, Triglycerides Level 70, Cholesterol Level 137, LDL Cholesterol Direct 77, VLDL Cholesterol 14, HDL Chol esterol 42 11/28/22 03:50: Glucometer 130H 11/28/22 04:05: Blood Gas Puncture Site R RAD, Blood Gas Patient Temperature 37.5, Arterial Blood pH 7.36L, Arterial Blood Partial Pressure CO2 38, Arterial Blood Partial Pressure O2 72L, Arterial Blood HCO3 21L, Arterial Blood Total CO2 21.9, Arterial Blood Oxygen Saturation 92L, Arterial Blood Base Excess -3.7L, Karthik Test YES-POS, Blood Gas Ventilator Setting NO, Blood Gas Inspired Oxygen 30% Laboratory Tests 11/27/22 17:20 11/28/22 03:[address] Angio Neck: IMPRESSION: 1. No intracranial large vessel occlusion or saccular aneurysm. 2. Patent dural venous sinuses. 3. Mild to moderate stenosis of the proximal internal carotid artery origins, worse on the right. CT ANGIO Chest: IMPRESSION: 1. No pulmonary emboli. 2. No pneumonia or pulmonary edema. CT Head: IMPRESSION: 1. No acute intracranial hemorrhage or features of large territorial infarct. A/P-Cardiology Assessment/Admission Diagnosis Cardio-resp arrest on 11/27/22 - treated with shocks through AED and CPR; rhythm unknown during arrest but suspected to be ventricular arrhythmia (since AED gave shocks) Ac NSTEMI H/o CAD - reports h/o VA several years ago (states 80s or 90s); had card cath but states did not receive any stents (does not have good recollection of events from that time) - echo on 11/28/22: LVEF 50%, distal septal and apical hypokinesis Chronic smoker of cigarettes Hypertension Post-CPR chest wall pain Discussion and Recomendations * Treat with ASA, clopidogrel, treatment-dose enoxaparin, beta-ale and statin * Advised card cath. Discussed in detail. He understands but refuses. States will discuss with family * Advised to quit smoking immediately and completely * I discussed his case with Dr Murphy today * I have tried to call his several times on the home phone ([phone]) and on her cell phone ([phone]) but have not been able to get through TON[facility] CARVALHO [facility] Nov 28, 2022 11:04
[2022-11-28] MEDS ORDERED: meTOprolol SUCCINATE 100 MG (TOPROL XL) TAB PO ONE (11:45)
[2022-11-28] MEDS ORDERED: HYDROmorphone 2 MG/ML VIAL (DILAUDID) IV ONE (16:15)
[2022-11-28] MEDS: LORazepam 0.5 MG (ATIVAN) TABLET PO PRN (19:34)
[2022-11-28] MEDS: DexMEDEtomidine 250 ML DRIP 250 ML IV SCH (21:27)
[2022-11-28] MEDS: ENOXAPARIN 100 MG/1 ML (LOVENOX) SYR SC SCH (21:50)
[2022-11-29] MEDS: NS IV 1000 ML 1,000 ML IV SCH ×2 (00:07→11:40)
[2022-11-29] MEDS: meTOprolol 5 MG/5 ML (LOPRESSOR) VIAL IV SCH ×4 (00:08→16:01)
[2022-11-29] MEDS: HYDROmorphone 2 MG/ML VIAL (DILAUDID) IV PRN ×2 (03:07→23:19)
[2022-11-29 05:09] LABS: BASOPHILS % (AUTO) 0 % (0-10); EOSINOPHILS % (AUTO) 1 % (0-10); HEMATOCRIT 38 % (40-54); HEMOGLOBIN 12.7 g/dL (13.3-17.7); LYMPHOCYTES # (AUTO) 1.8 10^3/uL (1.0-4.0); LYMPHOCYTES % (AUTO) 20 % (12-44); MEAN CORPUSCULAR HEMOGLOBIN 31 pg (25-34); MEAN CORPUSCULAR HGB CONC 33 g/dL (32-36); MEAN CORPUSCULAR VOLUME 92 fL (80-99); MEAN PLATELET VOLUME 10.9 fL (9.0-12.2); MONOCYTES # (AUTO) 0.9 10^3/uL (0.0-1.0); MONOCYTES % (AUTO) 10 % (0-12); NEUTROPHILS % (AUTO) 69 % (42-75); PLATELET COUNT 189 10^3/uL (130-400); WHITE BLOOD COUNT 8.8 10^3/uL (4.3-11.0)
[2022-11-29 05:26] LABS: ABG BASE EXCESS -1.9 MMOL/L (-2.5-2.5); ABG OXYGEN SATURATION 98 % (94-100); ABG PCO2 41 MMHG (35-45); ABG PH 7.36 (7.37-7.43); ABG PO2 98 MMHG (79-93); ABG TCO2 24.1 MMOL/L (21.0-31.0); ALLENS TEST YES-POS; INSPIRED O2 RA; PATIENT TEMP 36.5; VENTILATOR NO
[2022-11-29 05:30] LABS: ALBUMIN 3.5 GM/DL (3.2-4.5); BILIRUBIN,TOTAL 0.7 MG/DL (0.1-1.0); CALCIUM 8.3 MG/DL (8.5-10.1); CREATININE SERUM 0.73 MG/DL (0.60-1.30); MAGNESIUM 2.4 MG/DL (1.6-2.4); PHOSPHORUS 2.3 MG/DL (2.3-4.7); TOTAL PROTEIN 5.6 GM/DL (6.4-8.2)
[2022-11-29] MEDS: POTASSIUM CL 10MEQ/50ML IVPB 50 ML IV SCH (05:45)
[2022-11-29] MEDS: MAGNESIUM 1 GM/100 ML IVPB 100 ML IV SCH (05:45)
[2022-11-29] MEDS: KCL 20 MEQ TAB (K-DUR) PO SCH (05:45)
--- NOTE | 2022-11-29 06:26 | Progress Note - Hospitalist ---
Subjective HPI/CC On Admission Date Seen by Provider: Nov 29, 2022 Time Seen by Provider: 11:00 CC: s/p cardiac arrest with NSTEMI HPI: This is a 72yoWM clinic patient of [facility] who has a h/o PD and COPD and continued smoking who presents to the ICU following ER w/u after arriving via EMS s/p ROSC after cardiac arrest without intubation required. Troponin was slightly elevated on admit but more so this am on repeat. Dr Santiago consulted and recommended cardiac cath but he is hesitant. Family at bedside. Patient report he has chest pain from the CPR compressions performed when he was in cardiac arrest. Patient remains on O2. He appears to be very debilitated and chronically ill. Subjective/Events-last exam Now on biPAP High risk for intubation if he wears out No pain reported Bradycardia noted Reviewed labs Review of Systems Neurological: Confusion Focused Exam Lactate Level 11/27/22 17:20: Lactic Acid Level 6.05*H 11/27/22 20:25: Lactic Acid Level 1.32 Objective Exam Vital Signs Vital Signs Date Time Temp Pulse Resp B/P (MAP) Pulse Ox O2 Delivery O2 Flow Rate FiO2 11/30/22 04:00 50 25 160/64 (107) 97 NIV Bilevel 30.00 11/30/22 00:00 36.5 11/29/22 16:00 30 Capillary Refill : Less Than 3 Seconds General Appearance: Chronically ill, Other (on bipap) Respiratory: No Accessory Muscle Use, No Respiratory Distress, Decreased Breath Sounds Cardiovascular: Regular Rate, Rhythm Results/Procedures Lab Laboratory Tests 11/30/22 04:11 Patient resulted labs reviewed. Assessment/Plan Assessment and Plan Assess & Plan/Chief Complaint Assessment: Acute on chronic respiratory failure requiring biPAP today Bradycardia s/p cardiac arrest s/p ROSC without intubation required NSTEMI declines cardiac cath currently Tremor/PD? HTN HLP COPD Smoker Chronic debility Plan: Home meds Dr Santiago appreciated Pain meds EICU appreciated BiPAP Diagnosis/Problems Diagnosis/Problems (1) Cardiac arrest Status: Acute (2) History of CAD (coronary artery disease) Status: Acute (3) Elevated troponin Status: Acute FARTUN NO DO Nov 29, 2022 06:26
[2022-11-29 06:42] VITALS: BP 162/80
--- NOTE | 2022-11-29 07:58 | Tele-ICU Progress Note ---
Subjective Date Seen by a Provider: Nov 29, 2022 Time Seen by a Provider: 07:55 Subjective/Events-last exam Service provided via interactive audio and video telecommunETARGET E-CARE system to a patient admitted to ICU bed in [facility]. Patient is seen today due to persistent need of ICU care Available chart/ vitals / labs / Images reviewed Video assessment done using teleICU camera, rest of exam as per RN Discussed with RN 72 yo M had V fib arrest at home, was placed on IV amiodarone but no longer on any anti arrthymics pt is lethargic and was never intubated Pt is agitated, oriented to self, place, not time, may not be decisional, family, before arrest pt also has been refusing procedures due a previous in family BP has been better controlled Now on DPT, BID Lovenox, statin, PRN hydralzine, YOUNG inhibitor Vice President Of Finance ordered Lasix this am ? UTI, has urinary retention, will need Jaramillo catheter replaced, On BiPAP 8/5, FiO2 30%, when off mask RR goes up but SpO2 was ok, sounds congested Sepsis Event Evaluation Height, Weight, BMI Height: '" Weight: lbs. oz. kg; 28.21 BMI Method: Focused Exam Lactate Level 11/27/22 17:20: Lactic Acid Level 6.05*H 11/27/22 20:25: Lactic Acid Level 1.32 Exam Exam Patient acknowledged, consented, and participated in this virtual visit which was conducted using real time audio/video Vital Signs Date Time Temp Pulse Resp B/P (MAP) Pulse Ox O2 Delivery O2 Flow Rate FiO2 11/29/22 07:44 35.9 11/29/22 07:00 52 11/29/22 06:42 50 34 91 30.00 0.30 11/29/22 06:00 50 20 162/80 (107) 96 Nasal Cannula 4.00 11/29/22 05:42 36.3 11/29/22 05:00 48 18 153/80 (104) 92 Nasal Cannula 4.00 11/29/22 04:00 50 20 164/96 (118) 97 Nasal Cannula 4.00 11/29/22 04:00 99 Nasal Cannula 3.00 11/29/22 03:03 62 115/74 11/29/22 03:00 55 20 115/74 (88) 96 Nasal Cannula 4.00 11/29/22 02:00 53 23 149/75 (99) 95 Nasal Cannula 4.00 11/29/22 01:09 56 11/29/22 01:00 51 30 150/73 (98) 95 Nasal Cannula 4.00 11/29/22 00:06 36.6 11/29/22 00:00 52 34 142/69 (93) 95 Nasal Cannula 4.00 11/28/22 23:59 99 Nasal Cannula 3.00 11/28/22 23:00 53 23 105/46 (65) 92 Nasal Cannula 4.00 11/28/22 22:00 63 26 131/93 (106) 93 Nasal Cannula 4.00 11/28/22 21:27 56 177/95 11/28/22 21:00 60 12 177/95 (122) 95 Nasal Cannula 4.00 11/28/22 20:00 93 Nasal Cannula 3.00 11/28/22 20:00 57 22 171/97 (121) 97 Nasal Cannula 4.00 11/28/22 19:24 56 11/28/22 19:00 63 12 158/86 (110) 96 Nasal Cannula 4.00 11/28/22 18:00 53 24 152/82 (105) 92 Nasal Cannula 4.00 11/28/22 17:00 53 19 148/87 (107) 96 Nasal Cannula 4.00 11/28/22 16:00 61 14 149/111 (124) 97 Nasal Cannula 4.00 11/28/22 16:00 93 Nasal Cannula 2.00 11/28/22 15:45 37.1 11/28/22 15:00 56 14 160/79 (106) 95 Nasal Cannula 4.00 11/28/22 14:00 64 18 159/77 (104) 95 Nasal Cannula 4.00 11/28/22 13:00 75 26 175/83 (113) 96 Nasal Cannula 4.00 11/28/22 13:00 75 11/28/22 12:00 97 Nasal Cannula 3.00 11/28/22 12:00 68 28 166/61 (96) 97 Nasal Cannula 4.00 11/28/22 11:10 37.5 11/28/22 11:00 60 20 181/83 (115) 98 Nasal Cannula 4.00 11/28/22 10:38 96 Nasal Cannula 2.00 11/28/22 10:00 66 20 176/81 (112) 95 Nasal Cannula 4.00 11/28/22 09:00 63 19 170/81 (110) 97 Nasal Cannula 4.00 11/28/22 08:00 57 23 135/57 (83) 97 Nasal Cannula 4.00 11/28/22 08:00 98 Nasal Cannula 3.00 I & O 11/29/22 07:00 Intake Total 2700 ml Output Total 475 ml Balance 2225 ml Height & Weight Height: '" Weight: lbs. oz. kg; 28.21 BMI Method: General Appearance: No Apparent Distress, Chronically ill HEENT: PERRL/EOMI Neck: Supple Respiratory: No Accessory Muscle Use, No Respiratory Distress, Decreased Breath Sounds, Rhonci Cardiovascular: Regular Rate, Rhythm, Bradycardia Capillary Refill: Less Than 3 Seconds Gastrointestinal: normal bowel sounds, non tender, soft Extremity: Normal Capillary Refill, No Pedal Edema, Pedal Edema, Other (+ 1 leg edema) Neurologic/Psychiatric: Alert, Oriented x3, No Motor/Sensory Deficits, Normal Mood/Affect Results Lab Laboratory Tests 11/27/22 17:20 11/28/22 03:45 11/29/22 03:56 Assessment/Plan Assessment/Plan s/p V fib arrest, pt refusing to have cardiac cath, continue beta ale, statin, Lovenox, DPT, Lasix Family discussion about importance of cardiac cath Will need Jaramillo due to urinary retension will continue on BiPAP for now Critical Care: Critically Ill Patient Time spent with patient (mins): 30 NUHA LUONG MD Nov 29, 2022 07:58
[2022-11-29] MEDS: ASPIRIN 300 MG (5 GR) SUPPOSITORY PR SCH (08:38)
--- NOTE | 2022-11-29 08:52 | Diagnostic Imaging Report ---
INDICATION: Followup respiratory arrest. COMPARISON: 11/28/2022. DISCUSSION: A single portable upright view of the chest was obtained. Cardiomegaly is stable. Bilateral mixed interstitial and alveolar infiltrates are again noted diffusely, slightly decreased, likely edema. No pleural fluid or pneumothorax. No osseous abnormality. IMPRESSION: Cardiomegaly appears stable. Pulmonary infiltrates are slightly decreased. Dictated by: Dictated on workstation # [id number]
[2022-11-29] MEDS ORDERED: meTOprolol SUCCINATE 100 MG (TOPROL XL) TAB PO SCH (09:00)
[2022-11-29] MEDS ORDERED: KCL 10 MEQ TAB (MICRO K) PO ONE ×2 (09:15→15:45)
[2022-11-29] MEDS ORDERED: FUROSEMIDE 40 MG/4 ML INJ (LASIX) IVP ONE ×2 (09:15→15:45)
[2022-11-29] MEDS: ENOXAPARIN 100 MG/1 ML (LOVENOX) SYR SC SCH ×2 (09:23→20:29)
[2022-11-29] MEDS: lisINopril 20 MG (PRINIVIL) TABLET PO SCH (09:24)
[2022-11-29] MEDS: CLOPIDOGREL 75 MG (PLAVIX) TABLET PO SCH (09:24)
[2022-11-29] MEDS: DOCUSATE SODIUM 100 MG (COLACE) CAP PO SCH ×2 (09:24→19:29)
[2022-11-29] MEDS: SENNOSIDES 8.6 MG (SENOKOT) TAB PO SCH ×2 (09:24→19:30)
[2022-11-29] MEDS: ASPIRIN 81 MG CHEW (CHILDREN'S ASA) PO SCH (09:24)
[2022-11-29 10:24] VITALS: BP 162/80
[2022-11-29 10:44] LABS: BILIRUBIN,URINE NEGATIVE (NEGATIVE); CLARITY,URINE CLEAR; COLOR,URINE YELLOW; GLUCOSE, URINE (UA) TRACE (NEGATIVE); KETONES,URINE NEGATIVE (NEGATIVE); LEUKOCYTE ESTERASE ,URINE NEGATIVE (NEGATIVE); NITRITE,URINE NEGATIVE (NEGATIVE); PROTEIN,URINE NEGATIVE (NEGATIVE)
[2022-11-29 10:51] LABS: BACTERIA,URINE NEGATIVE /HPF; RBC,URINE RARE /HPF
[2022-11-29] MEDS: DexMEDEtomidine 250 ML DRIP 250 ML IV SCH ×3 (11:50→23:07)
[2022-11-29 14:20] VITALS: BP 165/75
--- NOTE | 2022-11-29 15:32 | Progress Note - Cardiology ---
Cardiology SOAP Progress Note Subjective: Has had intermittent confusion but lucid at the time of this exam. Exam conducted in the presence of his RN Eva More short of breath Denies cp at this time (improvement of post-CPR chest pain, but has had pain meds, i.e., oxycodone) No n/v No palp Gen weakness Clearly states no more chest compressions or breathing machines (requests DNR status) Objective: I&O/Vital Signs 11/29/22 11/29/22 11/29/22 11/29/22 04:00 04:00 05:00 05:42 Temp 36.3 Pulse 50 48 Resp 20 18 B/P (MAP) 164/96 (118) 153/80 (104) Pulse Ox 99 97 92 O2 Delivery Nasal Cannula Nasal Cannula Nasal Cannula O2 Flow Rate 3.00 4.00 4.00 11/29/22 11/29/22 11/29/22 11/29/22 06:00 06:42 07:00 07:00 Pulse 50 50 52 47 Resp 20 34 28 B/P (MAP) 162/80 (107) 158/68 (99) Pulse Ox 96 91 92 O2 Delivery Nasal Cannula Nasal Cannula O2 Flow Rate 4.00 30.00 4.00 0.30 11/29/22 11/29/22 11/29/22 11/29/22 07:44 08:00 08:00 09:00 Temp 35.9 Pulse 49 51 Resp 20 20 B/P (MAP) 164/79 (123) 151/88 (115) Pulse Ox 95 96 95 O2 Delivery NIV Bilevel Nasal Cannula Nasal Cannula O2 Flow Rate 3.00 4.00 4.00 FiO2 30 11/29/22 11/29/22 11/29/22 11/29/22 10:00 10:24 11:00 11:42 Temp 36.7 Pulse 51 49 81 Resp 26 40 17 B/P (MAP) 150/68 (86) Pulse Ox 97 97 95 O2 Delivery Nasal Cannula Nasal Cannula O2 Flow Rate 4.00 30.00 4.00 0.30 11/29/22 11/29/22 11/29/22 11/29/22 12:00 12:00 13:00 13:00 Pulse 52 55 55 Resp 26 32 B/P (MAP) 167/76 (117) 164/75 (94) Pulse Ox 95 96 90 O2 Delivery NIV Bilevel Nasal Cannula Nasal Cannula O2 Flow Rate 3.00 4.00 4.00 FiO2 30 11/29/22 11/29/22 11/29/22 14:00 14:20 15:00 Pulse 54 55 55 Resp 31 32 30 B/P (MAP) 165/75 (115) 175/81 (112) Pulse Ox 91 97 92 O2 Delivery Nasal Cannula Nasal Cannula O2 Flow Rate 4.00 30.00 4.00 0.30 11/29/22 00:00 Intake Total 500 ml Output Total 475 ml Balance 25 ml Constitutional: AAO x 3, well-developed, well-nourished Respiratory: No accessory muscle use; chest expansion is symmetric, rhonchi (expiratory), rales (bibasilar), other (on BiPAP that was removed for a few minutes to allow conversation during which he maintained normal oxygenation; BiPAP then replaced) Cardiovascular: regular rate-rhythm, S1 and S2, systolic murmur (soft SHAYLA at card base) Gastrointestional: No tender; soft; No guarding, No rebound; audible bowel sounds Extremities: No clubbing, No cyanosis, No significant edema Neurologic/Psychiatric: oriented x 3 (Intermittently confused, but alert and oriented at the time of this exam), other (moves all limbs) Skin: No rash on exposed areas, No ulcerations on exposed areas Results/Procedures: Labs Laboratory Tests 11/28/22 17:41: Glucometer 151H 11/29/22 00:04: Glucometer 126H 11/29/22 03:56: White Blood Count 8.8, Red Blood Count 4.17L, Hemoglobin 12.7L, Hematocrit 38L, Mean Corpuscular Volume 92, Mean Corpuscular Hemoglobin 31, Mean Corpuscular Hemoglobin Concent 33, Red Cell Distribution Width 13.0, Platelet Count 189, Rubi n Platelet Volume 10.9, Immature Granulocyte % (Auto) 1, Neutrophils (%) (Auto) 69, Lymphocytes (%) (Auto) 20, Monocytes (%) (Auto) 10, Eosinophils (%) (Auto) 1, Basophils (%) (Auto) 0, Neutrophils # (Auto) 6.0, Lymphocytes # (Auto) 1.8, Monocytes # (Auto) 0.9, Eosinophils # (Auto) 0.0, Basophils # (Auto) 0.0, Immature Granulocyte # (Auto) 0.0, Sodium Level 138, Potassium Level 4.0, Chl oride Level 109H, Carbon Dioxide Level 19L, Anion Gap 10, Blood Urea Nitrogen 19H, Creatinine 0.73, Estimat Glomerular Filtration Rate 95, BUN/Creatinine Ratio 26, Glucose Level 121H, Calcium Level 8.3L, Corrected Calcium 8.7, Phosphorus Level 2.3, Magnesium Level 2.4, Total Bilirubin 0.7, Aspartate Amino Transf (AST/SGOT) 31, Alanine Aminotransferase (ALT/SGPT) 35, Alkaline Phosphatase 37L, Total Protein 5.6L, Albumin 3.5 11/29/22 05:20: Blood Gas Puncture Site R RAD, Blood Gas Patient Temperature 36.5, Arterial Blood pH 7.36L, Arterial Blood Partial Pressure CO2 41, Arterial Blood Partial Pressure O2 98H, Arterial Blood HCO3 23, Arterial Blood Total CO2 24.1, Arterial Blood Oxygen Saturation 98, Arterial Blood Base Excess -1.9, Karthik Test YES-POS, Blood Gas Ventilator Setting NO, Blood Gas Inspired Oxygen RA 11/29/22 10:35: Urine Color YELLOW, Urine Clarity CLEAR, Urine pH 6.0, Urine Specific [place] 1.020, Urine Protein NEGATIVE, Urine Glucose (UA) TRACEH, Urine Ketones NEGATIVE, Urine Nitrite NEGATIVE, Urine Bilirubin NEGATIVE, Urine Urobilinogen 0.2, Urine Leukocyte Esterase NEGATIVE, Urine RBC (Auto) NEGATIVE, Urine RBC RARE, Urine WBC NONE, Urine Squamous Epithelial Cells NONE, Urine Crystals NONE, Urine Bacteria NEGATIVE, Urine Casts NONE, Urine Mucus NEGATIVE, Urine Culture Indicated NO 11/29/22 11:37: Glucometer 132H Microbiology 11/27/22 Blood Culture - Preliminary, Resulted No growth 11/27/22 MRSA Screen - Final, Complete MRSA not isolated 11/27/22 Urine Culture - Final, Complete NO GROWTH Laboratory Tests 11/27/22 17:20 11/28/22 03:45 11/29/22 03:56 A/P: Assessment: Cardio-resp arrest on 11/27/22 - treated with shocks through AED and CPR; rhythm unknown during arrest but suspected to be ventricular arrhythmia (since AED gave shocks) Ac NSTEMI Ac systolic CHF Sinus marcell today (11/29/22) H/o CAD - reports h/o ND several years ago (states 80s or 90s); had card cath but states did not receive any stents (does not have good recollection of events from that time) - echo on 11/28/22: LVEF 50%, distal septal and apical hypokinesis Chronic smoker of cigarettes - family reports h/o COPD Hypertension Post-CPR chest wall pain NOTE: At the time of this exam on 11/29/22, he asked his family to leave the room. I stayed with him along with his RN Eva. Mr. Hawkins requested that he be kept comfortable and free of pain. He stated expressly that he doesn't want chest compression, breathing machines, or resuscitative efforts in case of recu rrent cardio-resp arrest. I then went and spoke with his family in detail. This included his and children and adult grandchildren. Family agrees that he has not wanted ventilators / resuscitative efforts in the past. They also provide a vague history of him refusing blood clot and cancer treatments in the past. Accordingly, per his wishes, he has DNR status now and the plan is to treat with cardiac medications w/o invasive procedures and also aim at keeping free of pain. Plan: * Continue to treat with ASA, clopidogrel, treatment-dose enoxaparin, and statin * Beta-ale has to be held currently because of bradycardia. Will use beta- ale if heart rate tolerates * Diuretics added to the regimen to treat heart failure and YOUNG-inhibitor also added * Monitor labs TONY CARVALHO MD [facility] Nov 29, 2022 15:32
[2022-11-29] MEDS: FUROSEMIDE 40 MG/4 ML INJ (LASIX) IVP SCH (16:35)
[2022-11-29 18:40] VITALS: BP 171/75
[2022-11-29] MEDS: KCL 10 MEQ TAB (MICRO K) PO SCH (19:29)
[2022-11-29] MEDS: hydrALAZINE (APESOLINE) 20 MG/ML VIAL IV PRN (23:06)
[2022-11-30 02:10] VITALS: BP 156/60
[2022-11-30 03:14] LABS: ABG BASE EXCESS 3.3 MMOL/L (-2.5-2.5); ABG OXYGEN SATURATION 97 % (94-100); ABG PCO2 38 MMHG (35-45); ABG PH 7.47 (7.37-7.43); ABG PO2 91 MMHG (79-93); ABG TCO2 28.1 MMOL/L (21.0-31.0)
[2022-11-30 03:26] LABS: ALLENS TEST YES-POS; INSPIRED O2 30%; PATIENT TEMP 36.5; VENTILATOR NO
[2022-11-30 04:33] LABS: BASOPHILS % (AUTO) 0 % (0-10); EOSINOPHILS % (AUTO) 0 % (0-10); HEMATOCRIT 39 % (40-54); HEMOGLOBIN 13.2 g/dL (13.3-17.7); LYMPHOCYTES # (AUTO) 1.3 10^3/uL (1.0-4.0); LYMPHOCYTES % (AUTO) 15 % (12-44); MEAN CORPUSCULAR HEMOGLOBIN 30 pg (25-34); MEAN CORPUSCULAR HGB CONC 34 g/dL (32-36); MEAN CORPUSCULAR VOLUME 89 fL (80-99); MEAN PLATELET VOLUME 10.9 fL (9.0-12.2); MONOCYTES # (AUTO) 0.8 10^3/uL (0.0-1.0); MONOCYTES % (AUTO) 9 % (0-12); NEUTROPHILS # (AUTO) 6.3 10^3/uL (1.8-7.8); NEUTROPHILS % (AUTO) 75 % (42-75); PLATELET COUNT 196 10^3/uL (130-400); WHITE BLOOD COUNT 8.5 10^3/uL (4.3-11.0)
[2022-11-30 04:55] LABS: ALBUMIN 3.4 GM/DL (3.2-4.5); BILIRUBIN,TOTAL 0.9 MG/DL (0.1-1.0); CALCIUM 8.5 MG/DL (8.5-10.1); CREATININE SERUM 0.69 MG/DL (0.60-1.30); PHOSPHORUS 2.4 MG/DL (2.3-4.7); POTASSIUM 3.3 MMOL/L (3.6-5.0); TOTAL PROTEIN 5.8 GM/DL (6.4-8.2)
[2022-11-30] MEDS: KCL 20 MEQ TAB (K-DUR) PO SCH (04:59)
[2022-11-30] MEDS: MAGNESIUM 1 GM/100 ML IVPB 100 ML IV SCH (04:59)
[2022-11-30] MEDS: POTASSIUM CL 10MEQ/50ML IVPB 50 ML IV SCH ×9 (05:03→12:49)
[2022-11-30] MEDS: DexMEDEtomidine 250 ML DRIP 250 ML IV SCH ×2 (06:19→22:13)
[2022-11-30] MEDS: FUROSEMIDE 40 MG/4 ML INJ (LASIX) IVP SCH ×2 (06:25→16:18)
[2022-11-30] MEDS: NS IV 1000 ML 1,000 ML IV SCH (06:27)
--- NOTE | 2022-11-30 07:01 | Progress Note - Hospitalist ---
Subjective HPI/CC On Admission Date Seen by Provider: Nov 30, 2022 Time Seen by Provider: 10:00 CC: s/p cardiac arrest with NSTEMI HPI: This is a 72yoWM clinic patient of [facility] who has a h/o PD and COPD and continued smoking who presents to the ICU following ER w/u after arriving via EMS s/p ROSC after cardiac arrest without intubation required. Troponin was slightly elevated on admit but more so this am on repeat. Dr Santiago consulted and recommended cardiac cath but he is hesitant. Family at bedside. Patient report he has chest pain from the CPR compressions performed when he was in cardiac arrest. Patient remains on O2. He appears to be very debilitated and chronically ill. Subjective/Events-last exam No major issues No pain BiPAP not well tolerated Overall very debilitated Confused Review of Systems Pulmonary: Dyspnea Neurological: Confusion Focused Exam Lactate Level Objective Exam Vital Signs Vital Signs Date Time Temp Pulse Resp B/P (MAP) Pulse Ox O2 Delivery O2 Flow Rate FiO2 11/30/22 19:01 80 Nasal Cannula 4.00 11/30/22 18:00 50 29 155/56 (89) 11/30/22 12:21 36.2 11/29/22 16:00 30 Capillary Refill : Less Than 3 Seconds General Appearance: Chronically ill, Other (bipap) Respiratory: No Accessory Muscle Use, No Respiratory Distress, Decreased Breath Sounds Cardiovascular: Regular Rate, Rhythm Results/Procedures Lab Laboratory Tests 11/30/22 04:11 Patient resulted labs reviewed. Assessment/Plan Assessment and Plan Assess & Plan/Chief Complaint Assessment: Acute on chronic respiratory failure requiring biPAP today Bradycardia s/p cardiac arrest s/p ROSC without intubation required NSTEMI declines cardiac cath currently Tremor/PD? HTN HLP COPD Smoker Chronic debility Plan: Home meds Dr Santiago appreciated Pain meds EICU appreciated BiPAP Critical Care Critically Ill Patient Diagnosis/Problems Diagnosis/Problems (1) Cardiac arrest Status: Acute (2) History of CAD (coronary artery disease) Status: Acute (3) Elevated troponin Status: Acute FARTUN NO DO Nov 30, 2022 07:01
[2022-11-30 08:18] VITALS: BP 152/68
--- NOTE | 2022-11-30 08:43 | Diagnostic Imaging Report ---
PROCEDURE: US Venous Lower Ext Mannie. TECHNIQUE: Multiple real-time grayscale images were obtained over the lower extremities in various projections, bilaterally. Additional duplex Doppler and color Doppler images were also obtained. INDICATION: Pain and swelling. FINDINGS: The common femoral, femoral, popliteal veins and tibial veins demonstrate normal response to compression, augmentation and Valsalva. There are no abnormal lower extremity fluid collections or masses. IMPRESSION: No evidence of deep venous thrombosis in either lower extremity. Dictated by: Dictated on workstation # [id number]
--- NOTE | 2022-11-30 08:45 | Diagnostic Imaging Report ---
INDICATION: Cardiopulmonary arrest. COMPARISON: 11/29/2022. FINDINGS: The heart size is normal. There is some venous congestion. There is no pleural effusion or pneumothorax. The mediastinum is unremarkable. IMPRESSION: Cardiomegaly and mild central pulmonary venous congestion. Dictated by: Dictated on workstation # [id number]
[2022-11-30] MEDS: ENOXAPARIN 100 MG/1 ML (LOVENOX) SYR SC SCH ×2 (09:22→20:03)
[2022-11-30] MEDS: ASPIRIN 81 MG CHEW (CHILDREN'S ASA) PO SCH (09:22)
[2022-11-30] MEDS: CLOPIDOGREL 75 MG (PLAVIX) TABLET PO SCH ×2 (09:26→09:30)
[2022-11-30] MEDS: SENNOSIDES 8.6 MG (SENOKOT) TAB PO SCH ×3 (09:27→20:02)
[2022-11-30] MEDS: lisINopril 20 MG (PRINIVIL) TABLET PO SCH ×2 (09:27→09:30)
[2022-11-30] MEDS: meTOproloL SUCCINATE 50 MG (TOPROL XL) TAB PO SCH ×2 (09:27→09:30)
[2022-11-30] MEDS: DOCUSATE SODIUM 100 MG (COLACE) CAP PO SCH ×3 (09:27→20:02)
[2022-11-30] MEDS: KCL 10 MEQ TAB (MICRO K) PO SCH ×3 (09:27→20:02)
[2022-11-30] MEDS: ASPIRIN 300 MG (5 GR) SUPPOSITORY PR SCH (09:28)
--- NOTE | 2022-11-30 11:27 | Tele-ICU Progress Note ---
Subjective Date Seen by a Provider: Nov 30, 2022 Time Seen by a Provider: 11:26 Subjective/Events-last exam (Tele-ICU Physician , Progress Note ) Service provided via interactive audio and video telecommunications E-CARE system to a patient admitted to ICU bed in [facility]. Patient is seen today due to persistent need of ICU care Available chart/ vitals / labs / Images reviewed Video assessment done using teleICU camera, rest of exam as per RN Discussed with RN Events overnight : Afebrile hemodynamically stable Respiratory - 4l I/O = Drips: Pressors- no Hospital course: (11/27) 72M Admitted s/p CARDIAC ARREST. CTA chest: NEG PE. CTA NECK: no occlusions. CTH: NEG. Refused cardiac cath. Positive oxycodone on tox screen. Chronic pain? on narcotics ?NSTEMI. ABX started for possible UTI. (11/28) ??Worsening mental status. Precedex started. CHF (11/29) Lethargic/AMS. Weaned precedex while docs there. Made DNR. Needs precedex to keep calm and tolerate bipap. A/P Cardio-resp arrest on 11/27/22, NSTEMI , CAD - treated with shocks through AED and CPR; rhythm unknown during arrest but suspected to be ventricular arrhythmia (since AED gave shocks) - pt refusing to have cardiac cath, DNR - full dose lovenox Ac systolic CHF -echo on 11/28/22: LVEF 50%, distal septal and apical hypokinesis - a per cards Acute resp failure due to above - will try off bipap today urinary retension - zelaya h/o COPD - cpm chest wall pain -Post-CPR , pain control ? disphagia Lines : , (Central Line Necessity Reviewed) Zelaya: OG: Nutrition: Analgesia: Anxiety/ delirium VTE Prophylaxis: full dose lovenox Stress Ulcer Prophylaxis: Plans in collaboration with bedside consultants and IM MDs. Discussed with RN to reach out if any questions or concerns Case and care daily discussed on multidisciplinary rounds ( RN, PharmD, Load Builder , Respiratory Therapy, airplane woodworker ) A total of 25 minutes of critical care time was devoted to this patient today, required to treat and/or prevent further deterioration of critical care condition ( as above ) . I am remotely monitoring this patient from another state. I am unable to do the bedside exam, and history/physical and pertinent information is taken from other notes in the computer and bedside staff. Sepsis Event Evaluation Height, Weight, BMI Height: '" Weight: lbs. oz. kg; 28.21 BMI Method: Focused Exam Lactate Level 11/27/22 17:20: Lactic Acid Level 6.05*H 11/27/22 20:25: Lactic Acid Level 1.32 Exam Exam Patient acknowledged, consented, and participated in this virtual visit which was conducted using real time audio/video Vital Signs Date Time Temp Pulse Resp B/P (MAP) Pulse Ox O2 Delivery O2 Flow Rate FiO2 11/30/22 10:51 97 Nasal Cannula 4.00 11/30/22 10:19 47 154/67 11/30/22 10:00 50 20 154/67 (96) 94 Room Air 4.00 11/30/22 09:45 Room Air 4.00 11/30/22 09:00 50 27 160/62 (94) 92 NIV Bilevel 30.00 11/30/22 08:18 49 23 95 30.00 11/30/22 08:00 94 Nasal Cannula 4.00 11/30/22 08:00 50 18 152/68 (96) 93 NIV Bilevel 30.00 11/30/22 07:35 50 11/30/22 07:31 36.0 11/30/22 07:00 49 30 162/70 (100) 94 NIV Bilevel 30.00 11/30/22 06:00 49 21 150/62 (90) 93 NIV Bilevel 30.00 11/30/22 05:00 48 22 158/64 (92) 95 NIV Bilevel 30.00 11/30/22 04:00 50 25 160/64 (107) 97 NIV Bilevel 30.00 11/30/22 04:00 94 Nasal Cannula 3.00 11/30/22 03:00 52 28 152/64 (91) 96 NIV Bilevel 30.00 11/30/22 02:10 56 32 96 30.00 0.30 11/30/22 02:00 49 39 156/60 (101) 96 NIV Bilevel 30.00 11/30/22 01:00 54 11/30/22 01:00 54 36 142/54 (90) 89 NIV Bilevel 30.00 11/30/22 00:00 36.5 11/30/22 00:00 53 17 146/59 (102) 95 NIV Bilevel 30.00 11/30/22 00:00 94 Nasal Cannula 3.00 11/29/22 23:11 61 29 169/69 (114) 95 NIV Bilevel 30.00 11/29/22 23:07 183/83 11/29/22 23:00 46 29 183/83 (124) 96 NIV Bilevel 30.00 11/29/22 22:00 74 176/75 (124) 95 NIV Bilevel 30.00 11/29/22 21:00 59 178/80 (103) 94 NIV Bilevel 30.00 11/29/22 20:00 94 Nasal Cannula 3.00 11/29/22 20:00 36.4 11/29/22 20:00 53 181/77 (118) 98 NIV Bilevel 30.00 11/29/22 19:05 51 29 175/82 (118) 95 NIV Bilevel 30.00 11/29/22 19:00 55 32 184/83 (130) 96 NIV Bilevel 30.00 11/29/22 19:00 55 11/29/22 18:40 56 32 92 30.00 0.30 11/29/22 18:00 52 33 171/75 (120) 90 NIV Bilevel 30.00 11/29/22 17:00 55 26 181/95 (113) 94 NIV Bilevel 30.00 11/29/22 16:22 NIV Bilevel 30.00 11/29/22 16:00 95 NIV Bilevel 3.00 30 11/29/22 16:00 53 25 171/77 (101) 96 Nasal Cannula 4.00 11/29/22 15:38 36.1 11/29/22 15:00 55 30 175/81 (112) 92 Nasal Cannula 4.00 11/29/22 14:20 55 32 97 30.00 0.30 11/29/22 14:00 54 31 165/75 (115) 91 Nasal Cannula 4.00 11/29/22 13:00 55 32 164/75 (94) 90 Nasal Cannula 4.00 11/29/22 13:00 55 11/29/22 12:00 52 26 167/76 (117) 96 Nasal Cannula 4.00 11/29/22 12:00 95 NIV Bilevel 3.00 30 11/29/22 11:42 36.7 I & O 11/30/22 07:00 Intake Total 980 ml Output Total 4450 ml Balance -3470 ml Height & Weight Height: '" Weight: lbs. oz. kg; 28.21 BMI Method: General Appearance: Chronically ill, Other (on bipap) HEENT: PERRL/EOMI Neck: Supple Respiratory: No Accessory Muscle Use, No Respiratory Distress, Decreased Breath Sounds Cardiovascular: Regular Rate, Rhythm Capillary Refill: Less Than 3 Seconds Gastrointestinal: normal bowel sounds, non tender, soft Extremity: Normal Capillary Refill, No Pedal Edema, Pedal Edema, Other (+ 1 leg edema) Neurologic/Psychiatric: Alert, Oriented x3, No Motor/Sensory Deficits, Normal Mood/Affect Results Lab Laboratory Tests 11/29/22 03:56 11/30/22 04:11 Assessment/Plan Assessment/Plan 1 BROOKE MOE MD Nov 30, 2022 11:27
--- NOTE | 2022-11-30 12:16 | ST Dysphagia Evaluation ---
Speech Evaluation-General Medical Diagnosis s/p Cardiac Arrest Onset Date: Nov 28, 2022 Therapy Diagnosis Therapy Diagnosis: Mild Oropharyngeal Dysphagia Precautions Precautions: Fall, Pressure Ulcer, Aspiration Precautions/Isolations: Aspiration, Fall Prevention, Standard Precautions, Pressure Ulcer Referral Referring Physician: Dr. Murphy Reason for Referral: Evaluation/Treatment Medical History Reviewed History: Yes Speech PLF/Current-Dysphagia Prior Level of Function The patient (and patient's ) stated the patient consumes a regular consistency diet with thin liquids at home. The patient (and patient's present family members) denied swallowing concerns of the presence of s/s of suspected aspiration with P.O. intake. The patient's stated the patient does avoid meat due to difficulties with mastication and the patient's edentulous state. Subjective The patient was lying in bed, awake and alert, upon entrance to the patient's room by the clinician. The patient greeted the clinician appropriately and was agreeable to participation in the clinical bedside swallowing evaluation. The patient was seated upright in bed for safe swallowing. The patient stated he previously reported he "had a hard time because it was dry and moved slower." The patient is receiving 4L supplemental oxygen via nasal cannula. Cognitive Status Patient Orientation: Person, Place Per patient's , the patient's mentation is at baseline. Oral Motor Skills Dentition: Edentalous Ability to Follow Directions: Fair Oral Expression Ability: Mild Impairment Voice Voice Phonatory-Based Quality: Glottal Light Voice Pitch: Normal Voice Loudness: Normal Face Facial Symmetry: Symmetrical Oral-Facial Assessment Oral-Facial Dentition: Normal Labial Seal Description: Normal Smile: Normal Lingual Protrusion: Normal Lingual ROM: Normal Lingual Strength: Normal Volitional Dry Swallow: Yes Voluntary Cough: Yes Can Clear Throat Volitionally: Yes Productive Cough: No (Weak) Productive Throat Clear: No Dysphagia Evaluation Consistencies Presented: Regular, Thin Liquid (Via teaspoon and straw. ), Pureed Prolonged mastication with the solid consistency was displayed. A suspected delay in the pharyngeal swallow was present. Overt s/s of suspected aspiration were not displayed with thin liquids, puree, or solid consistencies tested. While hypopharyngeal secretions were audible throughout exhalation, coughing or throat clearing were not associated with the swallow. Dietary Recommendations: Mechanical Soft (SB6) Liquid Recommendations: Thin Recommendations: - SB6 with thin liquids, as tolerated. - Fully upright and alert for P.O. intake. - Small bites and sips, only. - Cease P.O. intake during periods of fatigue. - Monitor for s/s of suspected aspiration with P.O. intake. If demonstrated, please contact speech pathology. The results and recommendations were shared with the patient, the patient's family, and the RN immediately following the evaluation. Dysphagia Evaluation Summary The patient displayed mild oropharyngeal dysphagia characterized by prolonged and poorly coordinated mastication and a suspected delay in the pharyngeal swallow. The patient did not display s/s of suspected aspiration with P.O. intake throughout the evaluation on this date. Speech Short Term Goals Short Term Goals Short Term Goals 1. The patient will display safe swallowing precautions with 80% accuracy, independently. Time Frame-STG: Three Days. Speech Quality Control Operator Goals Longterm Goals 1. The patient will tolerate the least restrictive diet consistency without s/s of suspected aspiration. Time Frame: One Week. Speech-Plan Treatment Plan Speech Therapy Treatment Plan: Continue Plan of Care Treatment Duration: Dec 04, 2022 Frequency: 4 times per week Estimated Hrs Per Day: .25 hour per day Rehab Potential: Fair Pt/Family Agrees to Plan: Yes Safety Risks/Education Teaching Recipient: Patient, Family Teaching Methods: Discussion Response to Teaching: Reinforcement Needed Education Topics Provided: Safe Swallowing Precautions, Results, Recommendations Time Speech Therapy Time In: 11:25 Speech Therapy Time Out: 11:45 DATE: Nov 30, 2022 Total Billed Time: 20 Billed Treatment Time 1, DULCE MARIA PERDOMO [facility] Nov 30, 2022 12:16
[2022-11-30] MEDS ORDERED: PROP20TA5 PO (15:05)
[2022-11-30] MEDS ORDERED: ATOR40TA70 PO (15:05)
[2022-11-30] MEDS ORDERED: OXYC-556 PO (15:05)
[2022-11-30] MEDS ORDERED: AMLO-251 PO (15:05)
[2022-11-30] MEDS ORDERED: ASPI-1238 PO (15:29)
[2022-11-30] MEDS ORDERED: DOCU100C37 PO (15:29)
--- NOTE | 2022-11-30 17:24 | Progress Note - Cardiology ---
Cardiology SOAP Progress Note Subjective: Somnolent and not fully responsive to questions at the time of my exam at 9:30 am today Did not report cp or palp or syncope or shortness of breath Objective: I&O/Vital Signs 11/30/22 11/30/22 11/30/22 11/30/22 06:00 07:00 07:31 07:35 Temp 36.0 Pulse 49 49 50 Resp 21 30 B/P (MAP) 150/62 (90) 162/70 (100) Pulse Ox 93 94 O2 Delivery NIV Bilevel NIV Bilevel O2 Flow Rate 30.00 30.00 11/30/22 11/30/22 11/30/22 11/30/22 08:00 08:00 08:18 09:00 Pulse 50 49 50 Resp 18 23 27 B/P (MAP) 152/68 (96) 160/62 (94) Pulse Ox 93 94 95 92 O2 Delivery NIV Bilevel Nasal Cannula NIV Bilevel O2 Flow Rate 30.00 4.00 30.00 30.00 11/30/22 11/30/22 11/30/22 11/30/22 09:45 10:00 10:19 10:51 Pulse 50 47 Resp 20 B/P (MAP) 154/67 (96) 154/67 Pulse Ox 94 97 O2 Delivery Nasal Cannula Nasal Cannula Nasal Cannula O2 Flow Rate 4.00 4.00 4.00 11/30/22 11/30/22 11/30/22 11/30/22 11:00 12:00 12:00 12:00 Temp 36.2 Pulse 49 47 Resp 25 32 B/P (MAP) 171/73 (105) 137/75 (95) Pulse Ox 97 96 96 O2 Delivery Nasal Cannula Nasal Cannula Nasal Cannula O2 Flow Rate 4.00 4.00 4.00 11/30/22 11/30/22 11/30/22 11/30/22 12:21 12:40 13:00 14:00 Temp 36.2 Pulse 51 46 46 Resp 29 21 B/P (MAP) 160/75 (103) 135/60 (85) Pulse Ox 96 97 O2 Delivery Nasal Cannula Nasal Cannula O2 Flow Rate 4.00 4.00 11/30/22 11/30/22 11/30/22 11/30/22 15:00 16:00 16:00 16:01 Pulse 49 48 Resp 30 35 B/P (MAP) 95/64 (74) 158/81 (106) Pulse Ox 96 95 97 97 O2 Delivery Nasal Cannula Nasal Cannula Nasal Cannula Nasal Cannula O2 Flow Rate 4.00 4.00 4.00 4.00 11/30/22 00:00 Intake Total 470 ml Output Total 4100 ml Balance -3630 ml Constitutional: AAO x 3, well-developed, well-nourished Respiratory: No accessory muscle use; chest expansion is symmetric, rhonchi (expiratory), rales (bibasilar), other (on BiPAP that was removed for a few minutes to allow conversation during which he maintained normal oxygenation; BiPAP then replaced) Cardiovascular: regular rate-rhythm, S1 and S2, systolic murmur (soft SHAYLA at card base) Gastrointestional: No tender; soft; No guarding, No rebound; audible bowel sounds Extremities: No clubbing, No cyanosis, No significant edema Neurologic/Psychiatric: oriented x 3 (Intermittently confused, but alert and oriented at the time of this exam), other (moves all limbs) Skin: No rash on exposed areas, No ulcerations on exposed areas Results/Procedures: Labs Laboratory Tests 11/29/22 19:41: Glucometer 127H 11/29/22 23:34: Glucometer 137H 11/30/22 02:58: Blood Gas Puncture Site R RAD, Blood Gas Patient Temperature 36.5, Arterial Blood pH 7.47H, Arterial Blood Partial Pressure CO2 38, Arterial Blood Partial Pressure O2 91, Arterial Blood HCO3 27, Arterial Blood Total CO2 28.1, Arterial Blood Oxygen Saturation 97, Arterial Blood Base Excess 3.3H, Karthik Test YES-POS, Blood Gas Ventilator Setting NO, Blood Gas Inspired Oxygen 30% 11/30/22 04:11: White Blood Count 8.5, Red Blood Count 4.40, Hemoglobin 13.2L, Hematocrit 39L, Mean Corpuscular Volume 89, Mean Corpuscular Hemoglobin 30, Mean Corpuscular Hemoglobin Concent 34, Red Cell Distribution Width 12.4, Platelet Count 196, Mean Platelet Volume 10.9, Immature Granulocyte % (Auto) 1, Neutrophils (%) (Auto) 75, Lymphocytes (%) (Auto) 15, Monocytes (%) (Auto) 9, Eosinophils (%) (Auto) 0, Basophils (%) (Auto) 0, Neutrophils # (Auto) 6.3, Lymphocytes # (Auto) 1.3, Monocytes # (Auto) 0.8, Eosinophils # (Auto) 0.0, Basophils # (Auto) 0.0, Immature Granulocyte # (Auto) 0.0, Sodium Level 141, Potassium Level 3.3L, Chloride Level 109H, Carbon Dioxide Level 20L, Anion Gap 12, Blood Urea Nitrogen 26H, Creatinine 0.69, Estimat Glomerular Filtration Rate 97, BUN/Creatinine Ratio 38, Glucose Level 126H, Calcium Level 8.5, Corrected Calcium 9.0, Phosphorus Level 2.4, Magnesium Level 2.0, Total Bilirubin 0.9, Aspartate Amino Transf (AST/SGOT) 24, Alanine Aminotransferase (ALT/SGPT) 29, Alkaline Phosphatase 36L, Total Protein 5.8L, Albumin 3.4 11/30/22 12:03: Glucometer 118H Microbiology 11/27/22 Blood Culture - Preliminary, Resulted No growth 11/27/22 MRSA Screen - Final, Complete MRSA not isolated 11/27/22 Urine Culture - Final, Complete NO GROWTH Laboratory Tests 11/29/22 03:56 11/30/22 04:11 A/P: Assessment: Cardio-resp arrest on 11/27/22 - treated with shocks through AED and CPR; rhythm unknown during arrest but suspected to be ventricular arrhythmia (since AED gave shocks) Ac NSTEMI Ac systolic CHF Sinus marcell today (11/29/22) H/o CAD - reports h/o [place] several years ago (states 80s or 90s); had card cath but states did not receive any stents (does not have good recollection of events from that time) - echo on 11/28/22: LVEF 50%, distal septal and apical hypokinesis Chronic smoker of cigarettes - family reports h/o COPD Hypertension Post-CPR chest wall pain NOTE: At the time of my exam on 11/29/22, he requested DNR status and to keep our focus on alleviating any suffering he may face (see note of that date) Plan: * Continue to treat with ASA, clopidogrel, treatment-dose enoxaparin, and statin * D/c beta-ale because of bradycardia. * Diuretics added to the regimen to treat heart failure and YOUNG-inhibitor also added * He has intermittently been refusing oral meds * Monitor labs TONY CARVALHO MD FACP FAC CCDS Nov 30, 2022 17:24
[2022-11-30 22:35] VITALS: BP 177/71
[2022-12-01] MEDS: HYDROmorphone 2 MG/ML VIAL (DILAUDID) IV PRN ×4 (04:03→20:12)
[2022-12-01 05:30] LABS: BASOPHILS % (AUTO) 0 % (0-10); EOSINOPHILS % (AUTO) 0 % (0-10); HEMATOCRIT 40 % (40-54); HEMOGLOBIN 13.5 g/dL (13.3-17.7); LYMPHOCYTES # (AUTO) 1.5 10^3/uL (1.0-4.0); LYMPHOCYTES % (AUTO) 16 % (12-44); MEAN CORPUSCULAR HEMOGLOBIN 30 pg (25-34); MEAN CORPUSCULAR HGB CONC 34 g/dL (32-36); MEAN CORPUSCULAR VOLUME 89 fL (80-99); MEAN PLATELET VOLUME 11.4 fL (9.0-12.2); MONOCYTES % (AUTO) 10 % (0-12); NEUTROPHILS % (AUTO) 74 % (42-75); PLATELET COUNT 208 10^3/uL (130-400); WHITE BLOOD COUNT 9.5 10^3/uL (4.3-11.0)
[2022-12-01 05:47] LABS: ABG BASE EXCESS 4.3 MMOL/L (-2.5-2.5); ABG OXYGEN SATURATION 97 % (94-100); ABG PCO2 45 MMHG (35-45); ABG PH 7.42 (7.37-7.43); ABG PO2 120 MMHG (79-93)
[2022-12-01 06:00] LABS: ALBUMIN 3.5 GM/DL (3.2-4.5); BILIRUBIN,TOTAL 1.2 MG/DL (0.1-1.0); CALCIUM 8.7 MG/DL (8.5-10.1); CREATININE SERUM 0.74 MG/DL (0.60-1.30); MAGNESIUM 2.1 MG/DL (1.6-2.4); PHOSPHORUS 2.9 MG/DL (2.3-4.7); POTASSIUM 3.2 MMOL/L (3.6-5.0); TOTAL PROTEIN 5.9 GM/DL (6.4-8.2)
[2022-12-01] MEDS: FUROSEMIDE 40 MG/4 ML INJ (LASIX) IVP SCH ×2 (06:00→17:38)
[2022-12-01] MEDS: KCL 20 MEQ TAB (K-DUR) PO SCH (06:08)
[2022-12-01] MEDS: MAGNESIUM 1 GM/100 ML IVPB 100 ML IV SCH (06:08)
[2022-12-01] MEDS: POTASSIUM CL 10MEQ/50ML IVPB 50 ML IV SCH (06:08)
[2022-12-01 06:18] LABS: ALLENS TEST YES-POS; INSPIRED O2 4L; PATIENT TEMP 36.9; VENTILATOR NO
[2022-12-01] MEDS: lisINopril 20 MG (PRINIVIL) TABLET PO SCH ×2 (06:40→10:03)
[2022-12-01] MEDS ORDERED: KCL 20 MEQ TAB (K-DUR) PO ONE ×2 (07:00→09:00)
--- NOTE | 2022-12-01 08:40 | Diagnostic Imaging Report ---
CHEST 1 VIEW, AP/PA ONLY Indication: Cardiopulmonary arrest Comparison: 11/30/2022 Findings: Unchanged mild enlarged cardiac silhouette. No pulmonary consolidations have developed. No pleural effusion or pneumothorax. Impression: 1. Unchanged cardiomegaly without adverse development. Dictated by: Dictated on workstation # [id number]
[2022-12-01] MEDS: ASPIRIN 300 MG (5 GR) SUPPOSITORY PR SCH (09:50)
--- NOTE | 2022-12-01 09:55 | Tele-ICU Progress Note ---
Subjective Date Seen by a Provider: Dec 01, 2022 Time Seen by a Provider: 09:54 Subjective/Events-last exam (Tele-ICU Physician , Progress Note ) Service provided via interactive audio and video telecommunications E-CARE system to a patient admitted to ICU bed in [facility]. Patient is seen today due to persistent need of ICU care Available chart/ vitals / labs / Images reviewed Video assessment done using teleICU camera, rest of exam as per RN Discussed with RN Events overnight : Afebrile hemodynamically stable Respiratory - 4l I/O = Drips: Pressors- no Hospital course: (11/27) 72M Admitted s/p CARDIAC ARREST. CTA chest: NEG PE. CTA NECK: no occlusions. CTH: NEG. Refused cardiac cath. Positive oxycodone on tox screen. Chronic pain? on narcotics ?NSTEMI. ABX started for possible UTI. (11/28) ??Worsening mental status. Precedex started. CHF (11/29) Lethargic/AMS. Weaned precedex while docs there. Made DNR. Needs precedex to keep calm and tolerate bipap. A/P Cardio-resp arrest on 11/27/22, NSTEMI , CAD - treated with shocks through AED and CPR; rhythm unknown during arrest but suspected to be ventricular arrhythmia (since AED gave shocks) - pt refusing to have cardiac cath, DNR - full dose lovenox Ac systolic CHF -echo on 11/28/22: LVEF 50%, distal septal and apical hypokinesis - a per cards Acute resp failure due to above - will try off bipap today urinary retension - zelaya h/o COPD - cpm chest wall pain -Post-CPR , pain control ? disphagia Lines : , (Central Line Necessity Reviewed) Zelaya: OG: Nutrition: Analgesia: Anxiety/ delirium VTE Prophylaxis: full dose lovenox Stress Ulcer Prophylaxis: Plans in collaboration with bedside consultants and IM MDs. Discussed with RN to reach out if any questions or concerns Case and care daily discussed on multidisciplinary rounds ( RN, PharmD, Game Manager , Respiratory Therapy, woodworker ) A total of 25 minutes of critical care time was devoted to this patient today, required to treat and/or prevent further deterioration of critical care condition ( as above ) . I am remotely monitoring this patient from another state. I am unable to do the bedside exam, and history/physical and pertinent information is taken from other notes in the computer and bedside staff. Sepsis Event Evaluation Height, Weight, BMI Height: '" Weight: lbs. oz. kg; 28.21 BMI Method: Exam Exam Patient acknowledged, consented, and participated in this virtual visit which was conducted using real time audio/video Vital Signs Date Time Temp Pulse Resp B/P (MAP) Pulse Ox O2 Delivery O2 Flow Rate FiO2 12/01/22 07:59 36.3 12/01/22 07:33 55 12/01/22 06:57 94 Nasal Cannula 4.00 12/01/22 06:00 52 15 172/69 (103) 90 Nasal Cannula 4.00 12/01/22 05:00 56 18 172/66 (101) 97 Nasal Cannula 4.00 12/01/22 04:09 95 Nasal Cannula 4.00 12/01/22 04:00 56 30 173/88 (103) 90 Nasal Cannula 4.00 12/01/22 04:00 36.9 12/01/22 03:07 54 35 168/97 (125) 92 Nasal Cannula 4.00 12/01/22 02:30 Nasal Cannula 4.00 12/01/22 02:23 55 168/66 12/01/22 02:00 51 36 168/66 (102) 90 NIV Bilevel 30.00 12/01/22 01:00 53 12/01/22 01:00 54 151/75 (111) 92 NIV Bilevel 30.00 12/01/22 00:00 36.9 12/01/22 00:00 53 165/66 (99) 92 NIV Bilevel 30.00 11/30/22 23:59 95 NIV Bilevel 30 11/30/22 23:00 55 158/65 (93) 94 NIV Bilevel 30.00 11/30/22 22:49 NIV Bilevel 30.00 11/30/22 22:35 49 25 95 30.00 11/30/22 22:13 70 177/71 11/30/22 22:00 66 32 177/71 (118) 88 Nasal Cannula 4.00 11/30/22 21:00 60 28 173/64 (109) 92 Nasal Cannula 4.00 11/30/22 20:08 61 1 162/68 (104) 90 Nasal Cannula 4.00 11/30/22 20:00 94 Nasal Cannula 4.00 11/30/22 20:00 37.2 11/30/22 20:00 52 30 176/68 (100) 91 Nasal Cannula 4.00 11/30/22 19:01 80 Nasal Cannula 4.00 11/30/22 19:00 52 24 168/69 (87) 88 Nasal Cannula 4.00 11/30/22 19:00 52 11/30/22 18:00 50 29 155/56 (89) 94 Nasal Cannula 4.00 11/30/22 17:00 53 39 172/75 (107) 97 Nasal Cannula 4.00 11/30/22 16:01 97 Nasal Cannula 4.00 11/30/22 16:00 48 35 158/81 (106) 97 Nasal Cannula 4.00 11/30/22 16:00 95 Nasal Cannula 4.00 11/30/22 15:00 49 30 95/64 (74) 96 Nasal Cannula 4.00 11/30/22 14:00 46 21 135/60 (85) 97 Nasal Cannula 4.00 11/30/22 13:00 46 29 160/75 (103) 96 Nasal Cannula 4.00 11/30/22 12:40 51 11/30/22 12:21 36.2 11/30/22 12:00 36.2 11/30/22 12:00 47 32 137/75 (95) 96 Nasal Cannula 4.00 11/30/22 12:00 96 Nasal Cannula 4.00 11/30/22 11:00 49 25 171/73 (105) 97 Nasal Cannula 4.00 11/30/22 10:51 97 Nasal Cannula 4.00 11/30/22 10:19 47 154/67 11/30/22 10:00 50 20 154/67 (96) 94 Nasal Cannula 4.00 I & O 12/01/22 06:59 Intake Total 1820 ml Output Total 3775 ml Balance -1955 ml Height & Weight Height: '" Weight: lbs. oz. kg; 28.21 BMI Method: General Appearance: Chronically ill, Other (bipap) HEENT: PERRL/EOMI Neck: Supple Respiratory: No Accessory Muscle Use, No Respiratory Distress, Decreased Breath Sounds Cardiovascular: Regular Rate, Rhythm Capillary Refill: Less Than 3 Seconds Gastrointestinal: normal bowel sounds, non tender, soft Extremity: Normal Capillary Refill, No Pedal Edema, Pedal Edema, Other (+ 1 leg edema) Neurologic/Psychiatric: Alert, Oriented x3, No Motor/Sensory Deficits, Normal Mood/Affect Results Lab Laboratory Tests 11/30/22 04:11 12/01/22 03:58 Assessment/Plan Assessment/Plan 1 BROOKE MOE MD Dec 01, 2022 09:55
[2022-12-01] MEDS: SENNOSIDES 8.6 MG (SENOKOT) TAB PO SCH ×2 (10:03→21:41)
[2022-12-01] MEDS: ASPIRIN 81 MG CHEW (CHILDREN'S ASA) PO SCH (10:04)
[2022-12-01] MEDS: DOCUSATE SODIUM 100 MG (COLACE) CAP PO SCH ×2 (10:04→21:41)
[2022-12-01] MEDS: CLOPIDOGREL 75 MG (PLAVIX) TABLET PO SCH (10:04)
[2022-12-01] MEDS: KCL 10 MEQ TAB (MICRO K) PO SCH ×2 (10:04→20:11)
[2022-12-01] MEDS: ENOXAPARIN 100 MG/1 ML (LOVENOX) SYR SC SCH ×2 (10:05→20:12)
--- NOTE | 2022-12-01 10:15 | Progress Note - Cardiology ---
Cardiology SOAP Progress Note Objective: I&O/Vital Signs 12/01/22 12/01/22 12/01/22 12/01/22 19:54 20:00 23:01 23:30 Temp 37.8 Pulse 83 140 138 Resp 16 18 B/P (MAP) 139/84 (102) 133/63 (86) Pulse Ox 92 91 O2 Delivery Nasal Cannula Nasal Cannula Nasal Cannula O2 Flow Rate 2.00 2.00 2.00 12/01/22 12/01/22 12/01/22 12/02/22 23:48 23:56 23:58 00:00 Temp 37.4 37.4 Pulse 140 121 147 B/P (MAP) 138/92 (107) 119/85 (96) Pulse Ox 93 91 O2 Delivery Nasal Cannula Nasal Cannula Nasal Cannula O2 Flow Rate 3.00 3.00 3.00 12/02/22 12/02/22 12/02/22 12/02/22 00:09 00:15 00:21 00:30 Pulse 156 146 131 B/P (MAP) 119/85 170/108 (128) 172/76 (108) Pulse Ox 94 92 95 O2 Delivery Nasal Cannula Nasal Cannula Nasal Cannula O2 Flow Rate 3.00 3.00 3.00 12/02/22 12/02/22 12/02/22 12/02/22 00:45 01:00 01:00 01:15 Pulse 121 134 134 123 B/P (MAP) 119/82 (94) 160/73 (102) 122/78 (93) Pulse Ox 93 93 94 O2 Delivery Nasal Cannula Nasal Cannula Nasal Cannula O2 Flow Rate 3.00 3.00 3.00 12/02/22 12/02/22 12/02/22 12/02/22 02:00 02:30 02:57 03:00 Temp 37.2 Pulse 134 100 117 B/P (MAP) 118/96 (103) 152/59 (90) 157/76 (103) Pulse Ox 92 93 92 O2 Delivery Nasal Cannula Nasal Cannula Nasal Cannula Nasal Cannula O2 Flow Rate 3.00 3.00 3.00 3.00 12/02/22 12/02/22 12/02/22 12/02/22 03:15 03:30 04:00 04:35 Pulse 109 126 102 B/P (MAP) 142/56 (84) 121/87 (98) 134/61 (85) Pulse Ox 92 93 93 94 O2 Delivery Nasal Cannula Nasal Cannula Nasal Cannula Nasal Cannula O2 Flow Rate 3.00 3.00 3.00 3.00 12/02/22 12/02/22 12/02/22 12/02/22 05:00 05:30 06:00 06:00 Pulse 108 104 126 108 B/P (MAP) 158/118 (131) 172/80 (110) 121/87 140/88 (105) Pulse Ox 88 95 O2 Delivery Nasal Cannula Nasal Cannula Nasal Cannula O2 Flow Rate 3.00 3.00 3.00 12/02/22 07:10 Pulse 133 12/02/22 00:00 Intake Total 1490 ml Output Total 900 ml Balance 590 ml Constitutional: AAO x 3, well-developed, well-nourished Respiratory: No accessory muscle use; chest expansion is symmetric, rhonchi (expiratory), rales (bibasilar), other (on BiPAP that was removed for a few minutes to allow conversation during which he maintained normal oxygenation; BiPAP then replaced) Cardiovascular: regular rate-rhythm, S1 and S2, systolic murmur (soft SHAYLA at ca rd base) Gastrointestional: No tender; soft; No guarding, No rebound; audible bowel sounds Extremities: No clubbing, No cyanosis, No significant edema Neurologic/Psychiatric: oriented x 3 (Intermittently confused, but alert and oriented at the time of this exam), other (moves all limbs) Skin: No rash on exposed areas, No ulcerations on exposed areas Results/Procedures: Labs Laboratory Tests 12/01/22 11:39: Glucometer 118H 12/01/22 18:25: Glucometer 172H 12/02/22 00:35: Glucometer 116H 12/02/22 05:16: White Blood Count 12.4H, Red Blood Count 4.63, Hemoglobin 14.3, Hematocrit 41, Mean Corpuscular Volume 89, Mean Corpuscular Hemoglobin 31, Mean Corpuscular Hemoglobin Concent 35, Red Cell Distribution Width 12.6, Platelet Count 275, Mean Platelet Volume 11.1, Immature Granulocyte % (Auto) 1, Neutrophils (%) (Auto) 60, Lymphocytes (%) (Auto) 25, Monocytes (%) (Auto) 14H, Eosinophils (%) (Auto) 0, Basophils (%) (Auto) 0, Neutrophils # (Auto) 7.5, Lymphocytes # (Auto) 3.0, Monocytes # (Auto) 1.8H, Eosinophils # (Auto) 0.0, Basophils # (Auto) 0.0, Immature Granulocyte # (Auto) 0.1, Sodium Level 142, Potassium Level 3.2L, Chloride Level 105, Carbon Dioxide Level 25, Anion Gap 12, Blood Urea Nitrogen 28H, Creatinine 0.78, Estimat Glomerular Filtration Rate 94, BUN/Creatinine Ratio 36, Glucose Level 111H, Calcium Level 9.0, Corrected Calcium 9.3, Magnesium Level 2.3, Total Bilirubin 1.5H, Aspartate Amino Transf (AST/SGOT) 16, Alanine Aminotransferase (ALT/SGPT) 15, Alkaline Phosphatase 50, Total Protein 6.2L, Albumin 3.6 Microbiology 11/30/22 Gram Stain, Resulted Pending 11/30/22 Sputum Culture - Preliminary, Resulted Usual upper respiratory saranya 11/27/22 Blood Culture - Preliminary, Resulted No growth 11/27/22 Urine Culture - Final, Complete NO GROWTH A/P: Assessment: Cardio-resp arrest on 11/27/22 - treated with shocks through AED and CPR; rhythm unknown during arrest but suspected to be ventricular arrhythmia (since AED gave shocks) Ac NSTEMI Ac systolic CHF Sinus marcell today (11/29/22) H/o CAD - reports h/o [place] several years ago (states 80s or 90s); had card cath but states did not receive any stents (does not have good recollection of events from that time) - echo on 11/28/22: LVEF 50%, distal septal and apical hypokinesis Chronic smoker of cigarettes - family reports h/o COPD Hypertension Post-CPR chest wall pain NOTE: At the time of my exam on 11/29/22, he requested DNR status and to keep our focus on alleviating any suffering he may face (see note of that date) Plan: * Continue to treat with ASA, clopidogrel, treatment-dose enoxaparin, and statin * D/c beta-ale because of bradycardia. * Diuretics added to the regimen to treat heart failure and YOUNG-inhibitor also added * Replace electrolytes * He has intermittently been refusing oral meds * Monitor labs POONAM LAW [facility] Dec 01, 2022 10:15
--- NOTE | 2022-12-01 10:36 | Speech Therapy Daily Note ---
Speech Daily Progress Note Subjective Date Seen by Provider: Dec 01, 2022 Time Seen by Provider: 08:25 The patient was lying in bed, awake, upon entrance to his room. The patient makes eyes contact with the clinician following a verbal greeting and immediately reports an extremely high pain level. The patient stated the RN was aware and he did not want to re-adjust his position for increased comfort. Unfortunately, the patient is also attempting to eat and drink in a deeply reclined position, due to this, the clinician provided education regarding safe swallowing precautions and stated he would need to be re-adjusted to an upright position if he would like to continue to eat and drink for his safety. The PCT aided the clinician in placing the patient in an upright position. Objective The patient is receiving 4L supplemental oxygen via nasal cannula. The patient's SpO2% ranges from 98% to 72% with conversation. Declines in SpO2% are not associated with the timing of swallowing events. Audible, consistent secretions and congestion can be heard. The patient stated, "Can you guys just knock me out, clean out my lungs and let me be on my way." The patient denied shortness of air, however, continues to display respirations ranging from 38 to 70 (or higher). The RN is immediately notified by this clinician of the fluctuating SpO2% and respirations. The patient does take two straw drinks of thin liquid throughout the clinician's time with the patient and overt s/s of suspected aspiration were not displayed. For the patient's safety, the clinician recommends the patient being N.P.O. during periods of increased respiratory effort and shortness of air. Education regarding the necessity of N.P.O. during these periods were extensively discussed with the patient and the recommendation was provided to the RN (and written on the in-board white room). P.O. trials were ceased at his time and the patient's P.O. items were removed from bedside. The clinician attempted to walk the patient through diaphragmatic breathing exercises, however, the patient was unable to model the respiratory strategy to the clinician regardless of direct modeling. For energy conservation, the clinician recommends a change in diet consistency to MM5 with thin liquids once the patient does not display shortness of air. The recommendation was also provided to the RN. Assessment Assessment Current Status: Poor Progress Treatment Plan Continue Plan of Care Speech Short Term Goals Short Term Goals Short Term Goals 1. The patient will display safe swallowing precautions with 80% accuracy, independently. Time Frame-STG: Three Days. Speech Long-Term Goals Upsetter Helper Goals 1. The patient will tolerate the least restrictive diet consistency without s/s of suspected aspiration. Time Frame: One Week. Speech-Plan Treatment Plan Speech Therapy Treatment Plan: Continue Plan of Care Treatment Duration: Dec 04, 2022 Frequency: 4 times per week Estimated Hrs Per Day: .25 hour per day Rehab Potential: Fair Pt/Family Agrees to Plan: Yes Safety Risks/Education Teaching Recipient: Patient Teaching Methods: Discussion Response to Teaching: Reinforcement Needed Education Topics Provided: Safe Swallowing Precautions, Results, Recommendations Time Speech Therapy Time In: 08:25 Speech Therapy Time Out: 09:03 DATE: Dec 01, 2022 Total Billed Time: 38 Billed Treatment Time 1, CATHY DALY Dec 01, 2022 10:36
--- NOTE | 2022-12-01 11:35 | Progress Note - Hospitalist ---
KLEVER EDEN 12/01/22 1135: Subjective HPI/CC On Admission Date Seen by Provider: Dec 01, 2022 Time Seen by Provider: 08:30 CC: s/p cardiac arrest with NSTEMI Subjective/Events-last exam f/u on s/p ROSC after cardiac arrest without intubation Mr. Hawkins is a 72 yo male with a pmhx of PD and COPD admitted for s/p ROSC cardiac arrest. Pt at bedside and appears chronically ill. Today patient reports that he has continued SOB, chest and back pain. Pt denies any N/V, dizziness. Pt denies any new or worsening sx. Pt is moving will step down from ICU to floor. Objective Exam Vital Signs Vital Signs Date Time Temp Pulse Resp B/P (MAP) Pulse Ox O2 Delivery O2 Flow Rate FiO2 12/01/22 10:13 Nasal Cannula 2.00 12/01/22 10:05 91 12/01/22 10:00 57 29 150/67 (94) 12/01/22 07:59 36.3 11/30/22 23:59 30 Capillary Refill : Less Than 3 Seconds HEENT: PERRL/EOMI Neck: Normal Inspection, Non Tender, Supple Respiratory: Chest Non Tender, No Respiratory Distress, Rales, Other (Course breath sounds throughout) Cardiovascular: Regular Rate, Rhythm, No Edema, No JVD, No Murmur, Normal Peripheral Pulses Gastrointestinal: Normal Bowel Sounds, No Organomegaly, No Pulsatile Mass, Non Tender, Soft Extremity: Normal Capillary Refill, Normal Inspection, No Pedal Edema Neurologic/Psychiatric: Alert Skin: Normal Color, Warm/Dry Lymphatic: No Adenopathy Results/Procedures Lab Laboratory Tests 12/01/22 03:58 Patient resulted labs reviewed. Imaging: Reviewed Imaging Films, Reviewed Imaging Report Assessment/Plan Assessment and Plan Assess & Plan/Chief Complaint Acute on chronic respiratory failure Bradycardia s/p cardiac arrest s/p ROSC without intubation required NSTEMI declines cardiac cath currently Tremor/PD? HTN HLP COPD Smoker Chronic debility Plan: Continue home meds as indicated Dr Santiago appreciated Pain meds prn EICU appreciated BiPAP not tolerated, continue 4L via NC D/c BB due to bradycardia Code status: DNR Disposition: ICU to floor, likely 2-3 more midnights pending pt status CRISTA NO DO 12/02/22 0456: Subjective Review of Systems Pulmonary: Cough Objective Exam General Appearance: No Apparent Distress, WD/WN, Chronically ill Respiratory: Rales, Other (Course breath sounds throughout) Cardiovascular: Regular Rate, Rhythm Neurologic/Psychiatric: Alert Supervisory-Addendum Brief Verification & Attestation Participated in pt care: history, MDM, physical Personally performed: exam, history, MDM, supervision of care Care discussed with: Medical Student Procedures: n/a Results interpretation: Verified all documentation Verification and Attestation of Medical Student E/M Service A medical student performed and documented this service in my presence. I reviewed and verified all information documented by the medical student and made modifications to such information, when appropriate. I personally performed the physical exam and medical decision making. Crista No, Dec 02, 2022,04:56 KLEVER EDEN Dec 01, 2022 11:35 CRISTA NO DO Dec 02, 2022 04:56
--- NOTE | 2022-12-01 14:38 | Physical Therapy Progress Note ---
Therapy Progress Note Patient declined due to currently using the commode and requested to return tomorrow. RN notified. Will attempt tomorrow. ODILON MARINELLI PT Dec 01, 2022 14:37
--- NOTE | 2022-12-01 15:23 | Occ Therapy Progress Note ---
Therapy Progress Note OT order received, to attempt made for 12/01. and patent unavailable to evaluate, OT will complete next available opportunity CHRIS NG OT Dec 01, 2022 15:23
[2022-12-01 16:26] VITALS: BP 138/66
[2022-12-01 19:54] VITALS: BP 139/84
[2022-12-01] MEDS: MELATONIN 3 MG TABLET PO PRN (20:12)
--- NOTE | 2022-12-01 21:17 | Progress Note - Cardiology ---
Cardiology SOAP Progress Note Subjective: No cp other than the soreness from compression Shortness of breath is better No palp or syncope No n/v/d No focal weakness Gen malaise Objective: I&O/Vital Signs 12/01/22 12/01/22 12/01/22 12/01/22 10:00 10:05 10:13 11:00 Pulse 57 68 Resp 29 13 B/P (MAP) 150/67 (94) 158/90 (112) Pulse Ox 90 91 90 O2 Delivery Nasal Cannula Nasal Cannula Nasal Cannula Nasal Cannula O2 Flow Rate 4.00 3.00 2.00 2.00 12/01/22 12/01/22 12/01/22 12/01/22 11:55 12:00 12:08 12:14 Temp 37.2 Pulse 72 Resp 39 B/P (MAP) 113/96 (102) Pulse Ox 93 92 93 O2 Delivery Room Air Room Air Room Air 12/01/22 12/01/22 12/01/22 12/01/22 12:25 12:30 13:00 13:38 Pulse 79 73 87 Resp 21 B/P (MAP) 133/65 (87) Pulse Ox 96 O2 Delivery Room Air Room Air 12/01/22 12/01/22 12/01/22 12/01/22 14:47 15:00 15:09 16:00 Temp 37.7 Pulse 84 90 B/P (MAP) 122/44 (70) 139/70 (93) Pulse Ox 91 O2 Delivery Room Air Room Air Nasal Cannula O2 Flow Rate 2.00 12/01/22 12/01/22 12/01/22 12/01/22 16:26 16:27 19:15 19:54 Temp 37.8 37.8 37.8 Pulse 89 89 83 Resp 16 16 16 B/P (MAP) 138/66 (90) 138/66 (90) 139/84 (102) Pulse Ox 91 91 91 92 O2 Delivery Nasal Cannula Nasal Cannula Nasal Cannula Nasal Cannula O2 Flow Rate 2.00 2.00 2.00 2.00 12/01/22 00:00 Intake Total 910 ml Output Total 1675 ml Balance -765 ml Constitutional: AAO x 3, well-developed, well-nourished Respiratory: No accessory muscle use; chest expansion is symmetric, rhonchi (expiratory), rales (bibasilar), other (on BiPAP that was removed for a few minutes to allow conversation during which he maintained normal oxygenation; BiPAP then replaced) Cardiovascular: regular rate-rhythm, S1 and S2, systolic murmur (soft SHAYLA at card base) Gastrointestional: No tender; soft; No guarding, No rebound; audible bowel sounds Extremities: No clubbing, No cyanosis, No significant edema Neurologic/Psychiatric: oriented x 3 (Intermittently confused, but alert and oriented at the time of this exam), other (moves all limbs) Skin: No rash on exposed areas, No ulcerations on exposed areas Results/Procedures: Labs Laboratory Tests 11/30/22 23:54: Glucometer 121H 12/01/22 03:58: White Blood Count 9.5, Red Blood Count 4.45, Hemoglobin 13.5, Hematocrit 40, Mean Corpuscular Volume 89, Mean Corpuscular Hemoglobin 30, Mean Corpuscular Hemoglobin Concent 34, Red Cell Distribution Width 12.4, Platelet Count 208, Mean Platelet Volume 11.4, Immature Granulocyte % (Auto) 0, Neutrophils (%) ( Auto) 74, Lymphocytes (%) (Auto) 16, Monocytes (%) (Auto) 10, Eosinophils (%) (Auto) 0, Basophils (%) (Auto) 0, Neutrophils # (Auto) 7.0, Lymphocytes # (Auto) 1.5, Monocytes # (Auto) 1.0, Eosinophils # (Auto) 0.0, Basophils # (Auto) 0.0, Immature Granulocyte # (Auto) 0.0, Sodium Level 143, Potassium Level 3.2L, Chloride Level 106, Carbon Dioxide Level 24, Anion Gap 13, Blood Urea Nitrogen 32H, Creatinine 0.74, Estimat Glomerular Filtration Rate 95, BUN/Creatinine Ratio 43, Glucose Level 117H, Calcium Level 8.7, Corrected Calcium 9.1, Phosphorus Level 2.9, Magnesium Level 2.1, Total Bilirubin 1.2H, Aspartate Amino Transf (AST/SGOT) 18, Alanine Aminotransferase (ALT/SGPT) 24, Alkaline Phosphatase 47, Total Protein 5.9L, Albumin 3.5 12/01/22 05:25: Blood Gas Puncture Site RRAD, Blood Gas Patient Temperature 36.9, Arterial Blood pH 7.42, Arterial Blood Partial Pressure CO2 45, Arterial Blood Partial Pressure O2 120H, Arterial Blood HCO3 29H, Arterial Blood Total CO2 30.0, Arterial Blood Oxygen Saturation 97, Arterial Blood Base Excess 4.3H, Karthik Test YES-POS, Blood Gas Ventilator Setting NO, Blood Gas Inspired Oxygen 4L 12/01/22 11:39: Glucometer 118H 12/01/22 18:25: Glucometer 172H Microbiology 11/30/22 Gram Stain, Resulted Pending 11/30/22 Sputum Culture - Preliminary, Resulted Usual upper respiratory saranya 11/27/22 Blood Culture - Preliminary, Resulted No growth 11/27/22 Urine Culture - Final, Complete NO GROWTH Laboratory Tests 11/30/22 04:11 12/01/22 03:58 A/P: Assessment: Cardio-resp arrest on 11/27/22 - treated with shocks through AED and CPR; rhythm unknown during arrest but suspected to be ventricular arrhythmia (since AED gave shocks) Ac NSTEMI Ac systolic CHF Sinus node dysfunction: sinus marcell, PAF (with spontaneously controlled vent response) H/o CAD - reports h/o [place] several years ago (states 80s or 90s); had card cath but states did not receive any stents (does not have good recollection of events from that time) - echo on 11/28/22: LVEF 50%, distal septal and apical hypokinesis Chronic smoker of cigarettes - family reports h/o COPD Hypertension Post-CPR chest wall pain NOTE: At the time of my exam on 11/29/22, he requested DNR status and to keep our focus on alleviating any suffering he may face (see note of that date) Plan: * Continue to treat with ASA, clopidogrel, treatment-dose enoxaparin, and statin * D/c beta-ale because of bradycardia. * Diuretics added to the regimen to treat heart failure and YOUNG-inhibitor also added * Replace electrolytes * Compliant with meds today but still wishes to be managed conservatively * Monitor labs TONY CARVALHO MD FACP [facility] Dec 01, 2022 21:17
[2022-12-01 23:30] VITALS: BP 133/63
[2022-12-02] MEDS: dilTIAZem DRIP PRE-MIX 125 ML IV SCH ×2 (00:09→06:00)
[2022-12-02] MEDS: LORazepam 0.5 MG (ATIVAN) TABLET PO PRN ×2 (05:10→17:32)
[2022-12-02 05:52] LABS: BASOPHILS % (AUTO) 0 % (0-10); EOSINOPHILS % (AUTO) 0 % (0-10); HEMATOCRIT 41 % (40-54); HEMOGLOBIN 14.3 g/dL (13.3-17.7); LYMPHOCYTES % (AUTO) 25 % (12-44); MEAN CORPUSCULAR HEMOGLOBIN 31 pg (25-34); MEAN CORPUSCULAR HGB CONC 35 g/dL (32-36); MEAN CORPUSCULAR VOLUME 89 fL (80-99); MEAN PLATELET VOLUME 11.1 fL (9.0-12.2); MONOCYTES # (AUTO) 1.8 10^3/uL (0.0-1.0); MONOCYTES % (AUTO) 14 % (0-12); NEUTROPHILS # (AUTO) 7.5 10^3/uL (1.8-7.8); NEUTROPHILS % (AUTO) 60 % (42-75); PLATELET COUNT 275 10^3/uL (130-400); WHITE BLOOD COUNT 12.4 10^3/uL (4.3-11.0)
[2022-12-02] MEDS: FUROSEMIDE 40 MG/4 ML INJ (LASIX) IVP SCH ×2 (06:01→17:32)
[2022-12-02 06:13] LABS: ALBUMIN 3.6 GM/DL (3.2-4.5)
[2022-12-02 06:14] LABS: POTASSIUM 3.2 MMOL/L (3.6-5.0)
[2022-12-02 06:16] LABS: TOTAL PROTEIN 6.2 GM/DL (6.4-8.2)
[2022-12-02 06:18] LABS: BILIRUBIN,TOTAL 1.5 MG/DL (0.1-1.0)
[2022-12-02 06:20] LABS: CREATININE SERUM 0.78 MG/DL (0.60-1.30)
[2022-12-02 06:22] LABS: MAGNESIUM 2.3 MG/DL (1.6-2.4)
[2022-12-02] MEDS ORDERED: NS IV 500 ML 500 ML IV PRN (06:30)
[2022-12-02] MEDS: ENOXAPARIN 100 MG/1 ML (LOVENOX) SYR SC SCH (08:11)
[2022-12-02] MEDS: CLOPIDOGREL 75 MG (PLAVIX) TABLET PO SCH (08:12)
[2022-12-02] MEDS: ASPIRIN 81 MG CHEW (CHILDREN'S ASA) PO SCH (08:12)
[2022-12-02] MEDS: SENNOSIDES 8.6 MG (SENOKOT) TAB PO SCH ×2 (08:12→21:00)
[2022-12-02] MEDS: DOCUSATE SODIUM 100 MG (COLACE) CAP PO SCH ×2 (08:12→21:00)
[2022-12-02] MEDS: KCL 10 MEQ TAB (MICRO K) PO SCH ×2 (08:12→21:00)
[2022-12-02] MEDS: HYDROmorphone 2 MG/ML VIAL (DILAUDID) IV PRN (08:19)
--- NOTE | 2022-12-02 08:20 | Occ Therapy Progress Note ---
Therapy Progress Note OT order received 12/01/22 while patient in ICU 10, OT unable to evaluate patient 12/01/22. Patient transferred to fourth floor 12/01/22 and transferred again to ICU 2. OT request new orders for evaluation d/t change in status CHRIS NG OT Dec 02, 2022 08:20
--- NOTE | 2022-12-02 08:46 | Progress Note - Cardiology ---
Cardiology SOAP Progress Note Subjective: Sitting up in bed C/O ACW pain with palpation No c/o palpitations, SOB States he wants to go back downstairs to a regular room Objective: I&O/Vital Signs 12/01/22 12/01/22 12/01/22 12/01/22 23:01 23:30 23:48 23:56 Temp 37.4 Pulse 140 138 140 Resp 18 B/P (MAP) 133/63 (86) Pulse Ox 91 O2 Delivery Nasal Cannula Nasal Cannula O2 Flow Rate 2.00 3.00 12/01/22 12/02/22 12/02/22 12/02/22 23:58 00:00 00:09 00:15 Temp 37.4 Pulse 121 147 156 146 B/P (MAP) 138/92 (107) 119/85 (96) 119/85 170/108 (128) Pulse Ox 93 91 94 O2 Delivery Nasal Cannula Nasal Cannula Nasal Cannula O2 Flow Rate 3.00 3.00 3.00 12/02/22 12/02/22 12/02/22 12/02/22 00:21 00:30 00:45 01:00 Pulse 131 121 134 B/P (MAP) 172/76 (108) 119/82 (94) 160/73 (102) Pulse Ox 92 95 93 93 O2 Delivery Nasal Cannula Nasal Cannula Nasal Cannula Nasal Cannula O2 Flow Rate 3.00 3.00 3.00 3.00 12/02/22 12/02/22 12/02/22 12/02/22 01:00 01:15 02:00 02:30 Pulse 134 123 134 100 B/P (MAP) 122/78 (93) 118/96 (103) 152/59 (90) Pulse Ox 94 92 93 O2 Delivery Nasal Cannula Nasal Cannula Nasal Cannula O2 Flow Rate 3.00 3.00 3.00 12/02/22 12/02/22 12/02/22 12/02/22 02:57 03:00 03:15 03:30 Temp 37.2 Pulse 117 109 126 B/P (MAP) 157/76 (103) 142/56 (84) 121/87 (98) Pulse Ox 92 92 93 O2 Delivery Nasal Cannula Nasal Cannula Nasal Cannula Nasal Cannula O2 Flow Rate 3.00 3.00 3.00 3.00 12/02/22 12/02/22 12/02/22 12/02/22 04:00 04:35 05:00 05:30 Pulse 102 108 104 B/P (MAP) 134/61 (85) 158/118 (131) 172/80 (110) Pulse Ox 93 94 88 O2 Delivery Nasal Cannula Nasal Cannula Nasal Cannula Nasal Cannula O2 Flow Rate 3.00 3.00 3.00 3.00 12/02/22 12/02/22 12/02/22 12/02/22 06:00 06:00 07:00 07:10 Pulse 126 108 109 133 B/P (MAP) 121/87 140/88 (105) 136/82 (100) Pulse Ox 95 92 O2 Delivery Nasal Cannula Nasal Cannula O2 Flow Rate 3.00 3.00 12/02/22 08:00 Pulse 79 B/P (MAP) 148/71 (96) Pulse Ox 92 O2 Delivery Nasal Cannula O2 Flow Rate 3.00 12/02/22 00:00 Intake Total 1490 ml Output Total 900 ml Balance 590 ml Constitutional: AAO x 3, well-developed, well-nourished Respiratory: No accessory muscle use; chest expansion is symmetric, rhonchi (expiratory), rales (bibasilar), other (on BiPAP that was removed for a few minutes to allow conversation during which he maintained normal oxygenation; BiPAP then replaced) Cardiovascular: irregularly irregular, S1 and S2, systolic murmur (soft SHAYLA at card base) Gastrointestional: No tender; soft; No guarding, No rebound; audible bowel sounds Extremities: No clubbing, No cyanosis, No significant edema Neurologic/Psychiatric: oriented x 3 (Intermittently confused, but alert and oriented at the time of this exam), other (moves all limbs) Skin: No rash on exposed areas, No ulcerations on exposed areas Results/Procedures: Labs Laboratory Tests 12/01/22 11:39: Glucometer 118H 12/01/22 18:25: Glucometer 172H 12/02/22 00:35: Glucometer 116H 12/02/22 05:16: White Blood Count 12.4H, Red Blood Count 4.63, Hemoglobin 14.3, Hematocrit 41, Mean Corpuscular Volume 89, Mean Corpuscular Hemoglobin 31, Mean Corpuscular Hemoglobin Concent 35, Red Cell Distribution Width 12.6, Platelet Count 275, Mean Platelet Volume 11.1, Immature Granulocyte % (Auto) 1, Neutrophils (%) (Auto) 60, Lymphocytes (%) (Auto) 25, Monocytes (%) (Auto) 14H, Eosinophils (%) (Auto) 0, Basophils (%) (Auto) 0, Neutrophils # (Auto) 7.5, Lymphocytes # (Auto) 3.0, Monocytes # (Auto) 1.8H, Eosinophils # (Auto) 0.0, Basophils # (Auto) 0.0, Immature Granulocyte # (Auto) 0.1, Sodium Level 142, Potassium Level 3.2L, Chloride Level 105, Carbon Dioxide Level 25, Anion Gap 12, Blood Urea Nitrogen 28H, Creatinine 0.78, Estimat Glomerular Filtration Rate 94, BUN/Creatinine Ratio 36, Glucose Level 111H, Calcium Level 9.0, Corrected Calcium 9.3, Magnesium Level 2.3, Total Bilirubin 1.5H, Aspartate Amino Transf (AST/SGOT) 16, Alanine Aminotransferase (ALT/SGPT) 15, Alkaline Phosphatase 50, Total Protein 6.2L, Albumin 3.6 Microbiology 11/30/22 Gram Stain - Final, Resulted 11/30/22 Sputum Culture - Preliminary, Resulted Usual upper respiratory saranya 11/27/22 Blood Culture - Preliminary, Resulted No growth 11/27/22 Urine Culture - Final, Complete NO GROWTH Laboratory Tests 12/01/22 03:58 12/02/22 05:16 A/P: Assessment: New onset a-fib with RVR - first dx on tele of 12-01-22 - OAC with Eliquis started today Cardio-resp arrest on 11/27/22 - treated with shocks through AED and CPR; rhythm unknown during arrest but susp ected to be ventricular arrhythmia (since AED gave shocks) Ac NSTEMI Ac systolic CHF Sinus node dysfunction: sinus marcell, PAF (with spontaneously controlled vent response) H/o CAD - reports h/o [place] several years ago (states 80s or 90s); had card cath but states did not receive any stents (does not have good recollection of events from that time) - echo on 11/28/22: LVEF 50%, distal septal and apical hypokinesis Chronic smoker of cigarettes - family reports h/o COPD Hypertension Post-CPR chest wall pain NOTE: At the time of my exam on 11/29/22, he requested DNR status and to keep our focus on alleviating any suffering he may face (see note of that date) Plan: * New onset a-fib with RVR on 12-01-22 - Cardizem gtt - stop Cardizem, start BB and OAC with Eliquis * Stop Lovenox since we are starting Eliquis * Stop Plavix after today and continue ASA b/c having him on all 3 agents increases his risk of bleeding * Continue to treat with clopidogrel and statin * Replace electrolytes * Wishes to be managed conservatively * Monitor labs POONAM LAW [facility] Dec 02, 2022 08:46
--- NOTE | 2022-12-02 08:47 | Tele-ICU Progress Note ---
Subjective Date Seen by a Provider: Dec 02, 2022 Subjective/Events-last exam This virtual visit was conducted using real time audio/video. Thank you for asking us to see this patient for respiratory insufficiency due to cardiac arrest 11/27, NSTEMI, CHF. Refused card. cath. Recent events: Returned from floor / w afib/RVR. PE. Appears comfortable. VSS. HR 112 afib. HEENT: No obvious masses, adenopathy or JVD. Chest: coarse sounds on auscultation. CV: Irreg. S1 S2 No murmur or added sounds. Abd: Non-tender. Bowel sounds Y. : Unremarkable. Jaramillo Y. PROCESS TANK TENDER/psychiatric: Grossly intact. No obvious focal findings. Extremities: No edema. Capillary refill < 3 seconds. Skin: unremarkable. Results: Elevated WCC 12.4, BG 111, BUN 28. B.42/45/120 on 4 LPM. CXR: hyperinflaed, R interstitial infilts. Available chart/ vitals / labs / images reviewed. Video assessment done using teleICU camera, rest of exam as per RN. A/P: Respiratory insufficiency: Continue present management with O2, PRN BiPAP, duonebs. Monitor for increasing oxygenation needs and/or need for intubation. Critical Care: critically ill patient. Cont. Dilt., ASA, Plavix, Elida., statin, Lasix, lisinopril. Replace K. Discussed with DWAYNE Agustin. Asked RN to reach out to eICU if any questions or concerns later. Time spent with patient/coordination of care with other health professionals (mins): 20 Sepsis Event Evaluation Height, Weight, BMI Height: '" Weight: lbs. oz. kg; 24.38 BMI Method: Exam Exam Patient acknowledged, consented, and participated in this virtual visit which was conducted using real time audio/video Vital Signs Date Time Temp Pulse Resp B/P (MAP) Pulse Ox O2 Delivery O2 Flow Rate FiO2 12/02/22 08:00 79 148/71 (96) 92 Nasal Cannula 3.00 12/02/22 07:10 133 12/02/22 07:00 109 136/82 (100) 92 Nasal Cannula 3.00 12/02/22 06:00 108 140/88 (105) 95 Nasal Cannula 3.00 12/02/22 06:00 126 121/87 12/02/22 05:30 104 172/80 (110) 88 Nasal Cannula 3.00 12/02/22 05:00 108 158/118 (131) Nasal Cannula 3.00 12/02/22 04:35 94 Nasal Cannula 3.00 12/02/22 04:00 102 134/61 (85) 93 Nasal Cannula 3.00 12/02/22 03:30 126 121/87 (98) 93 Nasal Cannula 3.00 12/02/22 03:15 109 142/56 (84) 92 Nasal Cannula 3.00 12/02/22 03:00 117 157/76 (103) 92 Nasal Cannula 3.00 12/02/22 02:57 37.2 Nasal Cannula 3.00 12/02/22 02:30 100 152/59 (90) 93 Nasal Cannula 3.00 12/02/22 02:00 134 118/96 (103) 92 Nasal Cannula 3.00 12/02/22 01:15 123 122/78 (93) 94 Nasal Cannula 3.00 12/02/22 01:00 134 12/02/22 01:00 134 160/73 (102) 93 Nasal Cannula 3.00 12/02/22 00:45 121 119/82 (94) 93 Nasal Cannula 3.00 12/02/22 00:30 131 172/76 (108) 95 Nasal Cannula 3.00 12/02/22 00:21 92 Nasal Cannula 3.00 12/02/22 00:15 146 170/108 (128) 94 Nasal Cannula 3.00 12/02/22 00:09 156 119/85 12/02/22 00:00 147 119/85 (96) 91 Nasal Cannula 3.00 12/01/22 23:58 37.4 121 138/92 (107) 93 Nasal Cannula 3.00 12/01/22 23:56 140 12/01/22 23:48 37.4 Nasal Cannula 3.00 12/01/22 23:30 138 18 133/63 (86) 91 Nasal Cannula 2.00 12/01/22 23:01 140 12/01/22 20:00 Nasal Cannula 2.00 12/01/22 19:54 37.8 83 16 139/84 (102) 92 Nasal Cannula 2.00 12/01/22 19:15 91 Nasal Cannula 2.00 4/4/23 19:00 82 12/01/22 16:27 37.8 89 16 138/66 (90) 91 Nasal Cannula 2.00 12/01/22 16:26 37.8 89 16 138/66 (90) 91 Nasal Cannula 2.00 12/01/22 16:00 91 Nasal Cannula 2.00 12/01/22 15:09 37.7 12/01/22 15:00 90 139/70 (93) Room Air 12/01/22 14:47 84 122/44 (70) Room Air 12/01/22 13:38 87 12/01/22 13:00 73 21 133/65 (87) 96 Room Air 12/01/22 12:30 79 12/01/22 12:25 Room Air 12/01/22 12:14 93 Room Air 12/01/22 12:08 37.2 12/01/22 12:00 72 39 113/96 (102) 92 Room Air 12/01/22 11:55 93 Room Air 12/01/22 11:00 68 13 158/90 (112) 90 Nasal Cannula 2.00 12/01/22 10:13 Nasal Cannula 2.00 12/01/22 10:05 91 Nasal Cannula 3.00 12/01/22 10:00 57 29 150/67 (94) 90 Nasal Cannula 4.00 12/01/22 09:00 70 13 140/78 (98) 94 Nasal Cannula 4.00 I & O 12/02/22 07:00 Intake Total 2445 ml Output Total 1925 ml Balance 520 ml Height & Weight Height: '" Weight: lbs. oz. kg; 24.38 BMI Method: General Appearance: No Apparent Distress, WD/WN, Chronically ill HEENT: PERRL/EOMI Neck: Normal Inspection, Non Tender, Supple Respiratory: Rales, Other (Course breath sounds throughout) Cardiovascular: Regular Rate, Rhythm Capillary Refill: Less Than 3 Seconds Gastrointestinal: normal bowel sounds, non tender, soft Extremity: Normal Capillary Refill, Normal Inspection, No Pedal Edema Neurologic/Psychiatric: Alert Skin: Normal Color, Warm/Dry Lymphatic: No Adenopathy Results Lab Laboratory Tests 12/01/22 03:58 12/02/22 05:16 Assessment/Plan Assessment/Plan See free text. Critical Care: Critically Ill Patient RADHA AZEVEDO MD Dec 02, 2022 08:47
[2022-12-02] MEDS ORDERED: KCL 20 MEQ TAB (K-DUR) PO NR ×2 (09:00→11:00)
[2022-12-02] MEDS ORDERED: DIGOXIN 0.25 MG/ML (LANOXIN) 2 ML AMP IV NR (09:00)
--- NOTE | 2022-12-02 09:01 | Speech Therapy Progress Note ---
Therapy Progress Note Speech pathology clinical bedside swallowing order received 11/30/22 and consultation completed while patient in ICU 10. The patient transferred to fourth floor on 12/01/22 and re-transferred to ICU 2 shortly after. As the patient is an aspiration risk with prior medical history and current respiratory needs, requests new orders for evaluation d/t change in status. Thank you! CATHY ANNA Dec 02, 2022 09:01
[2022-12-02] MEDS: APIXABAN 5 MG (ELIQUIS) TABLET PO SCH ×2 (09:16→21:00)
[2022-12-02] MEDS: meTOproloL SUCCINATE 50 MG (TOPROL XL) TAB PO SCH ×2 (09:16→21:00)
[2022-12-02] MEDS ORDERED: PROPRANOLOL 20 MG (INDERAL) TABLET PO PRN (12:30)
--- NOTE | 2022-12-02 13:42 | Progress Note - Hospitalist ---
WILFREDO VILLANUEVA 12/02/22 1342: Subjective HPI/CC On Admission Date Seen by Provider: Dec 02, 2022 Time Seen by Provider: 09:15 CC: s/p cardiac arrest with NSTEMI Subjective/Events-last exam Mr. Hawkins is a 72 yo male with a pmhx of PD and COPD admitted for s/p ROSC cardiac arrest. Pt at bedside and appears less chronically ill than yesterday. Today patient reports that he feels better and that he has continued CP but his SOB and back pain have improved.Pt denies any N/V, dizziness. Pt denies any new or worsening sx. Pt will step down from ICU to floor today. Objective Exam Vital Signs Vital Signs Date Time Temp Pulse Resp B/P (MAP) Pulse Ox O2 Delivery O2 Flow Rate FiO2 12/02/22 12:28 72 12/02/22 12:15 119/50 (73) Nasal Cannula 3.00 12/02/22 12:00 93 12/02/22 02:57 37.2 12/01/22 23:30 18 11/30/22 23:59 30 Capillary Refill : Less Than 3 Seconds General Appearance: No Apparent Distress, WD/WN HEENT: PERRL/EOMI Neck: Normal Inspection, Non Tender, Supple Respiratory: No Accessory Muscle Use, No Respiratory Distress, Other Cardiovascular: Regular Rate, Rhythm, No Edema, No Murmur Gastrointestinal: Normal Bowel Sounds, No Pulsatile Mass, Non Tender, Soft Extremity: Normal Capillary Refill, No Pedal Edema Neurologic/Psychiatric: Alert, Oriented x3 Skin: Normal Color, Warm/Dry Lymphatic: No Adenopathy Results/Procedures Lab Laboratory Tests 12/02/22 05:16 Patient resulted labs reviewed. Imaging: Reviewed Imaging Films, Reviewed Imaging Report Assessment/Plan Assessment and Plan Assess & Plan/Chief Complaint Acute on chronic respiratory failure Bradycardias s/p cardiac arrest s/p ROSC without intubation required NSTEMI declines cardiac cath currently Tremor/PD? HTN HLP COPD Smoker Chronic debility New onset Afib RVR Plan: Electrolyte replacement Continue home meds as indicated Dr Santiago appreciated Pain meds prn EICU appreciated BiPAP not tolerated, continue 3L via NC. Oxygen upon discharge D/c BB due to bradycardia Cardezam drip started by cardiology OAC with eliqus. Stop lovenox Continue Plavix and statin Code status: DNR Disposition: ICU to floor, like 1-2 midnights pending pt status CRISTA NO DO 12/03/22 0609: Supervisory-Addendum Brief Verification & Attestation Participated in pt care: history, MDM, physical Personally performed: exam, history, MDM, supervision of care Care discussed with: Medical Student Procedures: n/a Results interpretation: Verified all documentation Verification and Attestation of Medical Student E/M Service A medical student performed and documented this service in my presence. I reviewed and verified all information documented by the medical student and made modifications to such information, when appropriate. I personally performed the physical exam and medical decision making. Crista No, Dec 03, 2022,06:09 WILFREDO VILLANUEVA Dec 02, 2022 13:42 CRISTA NO DO Dec 03, 2022 06:09
--- NOTE | 2022-12-02 15:38 | Physical Therapy Evaluation ---
PT Evaluation-General Medical Diagnosis Admission Date Nov 27, 2022 at 21:28 Medical Diagnosis: s/p Cardiac Arrest Onset Date: Nov 28, 2022 Therapy Diagnosis Therapy Diagnosis: Gait deficit Precautions Precautions/Isolations: Fall Prevention, Standard Precautions Weight Bear Status Right Lower Extremity: Right Full Weight Bearing Left Lower Extremity: Left Full Weight Bearing Referral Physician: Dr. Murphy Reason for Referral: Evaluation/Treatment Medical History Reviewed History: Yes Social History Home: Multilevel Current Living Status: Spouse Entry Into Home: Stairs Without Railing PT Steps Into Home: 1 PT Steps Inside Home: 14 Prior Prior Level of Function SCALE: Activities may be completed with or without assistive devices. 9-Wsznhkpolb-enhctla completes the activity by him/herself with no assistance from a helper. 5-Set-up or Clean-up Assistance-helper sets up or cleans up; patient completes activity. [place] assists only prior to or following the activity. 4-Supervision or Touching Assistance-helper provides verbal cues and/or touching/steadying and/or contact guard assistance as patient completes activity. Assistance may be provided throughout the activity or intermittently. 3-Partial/Moderate Assistance-helper does LESS THAN HALF the effort. [place] lifts, holds or supports trunk or limbs, but provides less than half the effort. 2-Substantial/Maximal Assistance-helper does MORE THAN HALF the effort. [place] l ifts or holds trunk or limbs and provides more than half the effort. 3-Gdsqeuilj-bowtob does ALL the effort. Patient does none of the effort to complete the activity. Or, the assistance of 2 or more helpers is required for the patient to complete the activity. If activity was not attempted, code reason: 7-Patient Refused. 9-Not Applicable-not attempted and the patient did not perform the activity before the current illness, exacerbation or injury. 10-Not Attempted due to Environmental Limitations-(lack of equipment, weather restraints, etc.). 88-Not Attempted due to Medical Conditions or Safety Concerns. Bed Mobility: 6 Transfers (B,C,W/C): 6 Gait: 6 Stairs: 6 Indoor Mobility (Ambulation): Independent Stairs: Independent Prior Devices Use: Walker Has FWW, cane and crutches at home PT Evaluation-Current Subjective Patient sitting in chair upon PT arrival, agreeable to treatment. Patient rates pain at 9/10 between shoulder blades. Objective Patient Orientation: Person, Place, Time, Situation Attachments: Oxygen, Jaramillo Catheter, IV ROM/Strength ROM Lower Extremities WFLs bilaterally all planes Strength Lower Extremities 3+/5 bilaterally all planes Sensory Vision: Functional Hearing: Functional Sensation Right Lower Extremit: Impaired Sensation Left Lower Extremity: Impaired Sensation Lower Extremities Poor sensation in bilateral feet Transfers Sit to Stand (QC): 4 Chair/Taj-oi-Liaym Xfer(QC): 4 Gait Does the Patient Walk?: Yes Mode of Locomotion: Walk Anticipated Mode of Locomotion: Walk Walk 10 feet (QC): 4 Walk 50 ft with 2 Turns(QC): 4 Walk 150 ft (QC): 4 Distance: 150 feet Gait Assistive Device: FWW Balance Sitting Static: Good Sitting Dynamic: Good Standing Static: Fair Standing Dynamic: Poor Assessment/Needs Patient tolerated treatment well. He performs all observed transfers with SBA. Patient ambulates 150 feet with FWW, with CGA and verbal cues for safety, progression, balance and gait pattern. Patient ambulates with narrow TI, scissoring gait and shortened stride length bilaterally. Patient in chair post treatment with all needs met, nursing notified, and call light in reach. Rehab Potential: Fair PT Fpc Goals Fpc Goals PT Fpc Goals Time Frame: Dec 26, 2022 Roll Left & Right (QC): 6 Sit to Lying (QC): 6 Lying-Sitting on Side/Bed(QC): 6 Sit to Stand (QC): 6 Chair/Gzv-nq-Yuted Xfer(QC): 6 Toilet Transfer (QC): 6 Does the Patient Walk: Yes Walk 10 feet (QC): 6 Walk 50ft with 2 Turns (QC): 6 Walk 150 ft (QC): 6 1 Step (curb) (QC): 4 4 Steps (QC): 4 12 Steps (QC): 4 PT Plan Problem List Problem List: Activity Tolerance, Functional Strength, Safety, Balance, Gait, Transfer, Bed Mobility, ROM Treatment/Plan Treatment Plan: Continue Plan of Care Treatment Plan: Bed Mobility, Education, Functional Activity Deirdre, Functional Strength, Group Therapy, Gait, Safety, Therapeutic Exercise, Transfers Treatment Duration: Dec 26, 2022 Frequency: 6 times per week Estimated Hrs Per Day: .25 hour per day Patient and/or Family Agrees t: Yes Safety Risks/Education Patient Education: Gait Training, Transfer Techniques Teaching Recipient: Patient Teaching Methods: Discussion Response to Teaching: Return Demonstration Time Time In: 1516 Time Out: 1530 DATE: Dec 02, 2022 Total Billed Treatment Time: 14 Total Billed Treatment Visit, DANIEL CA PT Dec 02, 2022 15:38
[2022-12-02 16:12] VITALS: BP 152/67
--- NOTE | 2022-12-02 16:49 | Progress Note - Cardiology ---
Cardiology SOAP Progress Note Subjective: Gen malaise Wanted urinary cath out No cp or palp or syncope Wants to be able to use a regular bathroom No focal weakness No n/v/d Objective: I&O/Vital Signs 12/02/22 12/02/22 12/02/22 12/02/22 05:00 05:30 06:00 06:00 Pulse 108 104 126 108 B/P (MAP) 158/118 (131) 172/80 (110) 121/87 140/88 (105) Pulse Ox 88 95 O2 Delivery Nasal Cannula Nasal Cannula Nasal Cannula O2 Flow Rate 3.00 3.00 3.00 12/02/22 12/02/22 12/02/22 12/02/22 07:00 07:10 08:00 08:00 Pulse 109 133 79 B/P (MAP) 136/82 (100) 148/71 (96) Pulse Ox 92 92 93 O2 Delivery Nasal Cannula Nasal Cannula Nasal Cannula O2 Flow Rate 3.00 3.00 3.00 12/02/22 12/02/22 12/02/22 12/02/22 09:00 10:00 11:00 12:00 Pulse 146 94 92 B/P (MAP) 123/71 (88) 143/62 (89) 124/58 (80) Pulse Ox 91 89 88 93 O2 Delivery Nasal Cannula Nasal Cannula Nasal Cannula Nasal Cannula O2 Flow Rate 3.00 3.00 3.00 3.00 12/02/22 12/02/22 12/02/22 12/02/22 12:15 12:28 13:52 14:40 Pulse 65 72 62 B/P (MAP) 119/50 (73) O2 Delivery Nasal Cannula Nasal Cannula O2 Flow Rate 3.00 3.00 12/02/22 16:12 Temp 37.5 Pulse 63 Resp 18 B/P (MAP) 152/67 (95) Pulse Ox 94 O2 Delivery Nasal Cannula O2 Flow Rate 3.00 12/02/22 00:00 Intake Total 1490 ml Output Total 900 ml Balance 590 ml Constitutional: AAO x 3, well-developed, well-nourished Respiratory: No accessory muscle use; chest expansion is symmetric, rhonchi (expiratory), rales (bibasilar), other (on BiPAP that was removed for a few minutes to allow conversation during which he maintained normal oxygenation; BiPAP then replaced) Cardiovascular: irregularly irregular, S1 and S2, systolic murmur (soft SHAYLA at card base) Gastrointestional: No tender; soft; No guarding, No rebound; audible bowel sounds Extremities: No clubbing, No cyanosis, No significant edema Neurologic/Psychiatric: oriented x 3 (Intermittently confused, but alert and oriented at the time of this exam), other (moves all limbs), power is 5/5 both on sides Skin: No rash on exposed areas, No ulcerations on exposed areas Results/Procedures: Labs Laboratory Tests 12/01/22 18:25: Glucometer 172H 12/02/22 00:35: Glucometer 116H 12/02/22 05:16: White Blood Count 12.4H, Red Blood Count 4.63, Hemoglobin 14.3, Hematocrit 41, Mean Corpuscular Volume 89, Mean Corpuscular Hemoglobin 31, Mean Corpuscular Hemoglobin Concent 35, Red Cell Distribution Width 12.6, Platelet Count 275, Mean Platelet Volume 11.1, Immature Granulocyte % (Auto) 1, Neutrophils (%) (Auto) 60, Lymphocytes (%) (Auto) 25, Monocytes (%) (Auto) 14H, Eosinophils (%) (Auto) 0, Basophils (%) (Auto) 0, Neutrophils # (Auto) 7.5, Lymphocytes # (Auto) 3.0, Monocytes # (Auto) 1.8H, Eosinophils # (Auto) 0.0, Basophils # (Auto) 0.0, Immature Granulocyte # (Auto) 0.1, Sodium Level 142, Potassium Level 3.2L, Chloride Level 105, Carbon Dioxide Level 25, Anion Gap 12, Blood Urea Nitrogen 28H, Creatinine 0.78, Estimat Glomerular Filtration Rate 94, BUN/Creatinine Ratio 36, Glucose Level 111H, Calcium Level 9.0, Corrected Calcium 9.3, Magnesium Level 2.3, Total Bilirubin 1.5H, Aspartate Amino Transf (AST/SGOT) 16, Alanine Aminotransferase (ALT/SGPT) 15, Alkaline Phosphatase 50, Total Protein 6.2L, Albumin 3.6 12/02/22 11:27: Glucometer 125H 12/02/22 16:08: Glucometer 103 Microbiology 11/30/22 Gram Stain - Final, Complete 11/30/22 Sputum Culture - Final, Complete Usual upper respiratory saranya 11/27/22 Blood Culture - Preliminary, Resulted No growth 11/27/22 Urine Culture - Final, Complete NO GROWTH Laboratory Tests 12/01/22 03:58 12/02/22 05:16 A/P: Assessment: New onset a-fib with RVR - first dx on tele of 12-01-22 - OAC with Eliquis started today (after stopping enoxaparin today) Cardio-resp arrest on 11/27/22 - treated with shocks through AED and CPR; rhythm unknown during arrest but suspected to be ventricular arrhythmia (since AED gave shocks) Ac NSTEMI Ac systolic CHF Sinus node dysfunction: sinus marcell, PAF (with spontaneously controlled vent response) H/o CAD - reports h/o [place] several years ago (states 80s or 90s); had card cath but states did not receive any stents (does not have good recollection of events from that time) - echo on 11/28/22: LVEF 50%, distal septal and apical hypokinesis Chronic smoker of cigarettes - family reports h/o COPD Hypertension Post-CPR chest wall pain NOTE: At the time of my exam on 11/29/22, he requested DNR status and to keep our focus on alleviating any suffering he may face (see note of that date) Plan: * New onset a-fib with RVR on 12-01-22 - Cardizem gtt - stop Cardizem, start BB and OAC with Eliquis * Stop treatment-dose Lovenox since we are starting Eliquis * Stop Plavix after today and continue ASA b/c having him on all 3 agents (Plavix and ASA and Eliquis) increases his risk of bleeding * Continue to treat with clopidogrel and statin * Replace electrolytes * Wishes to be managed conservatively * Monitor labs * Transfer to floor if heart rate controlled TONY CARVALHO MD FACP [facility] CCDS Dec 02, 2022 16:49
--- NOTE | 2022-12-02 16:53 | Occupational Therapy Eval ---
OT Evaluation-General/PLF Medical Diagnosis Admission Date Nov 27, 2022 at 21:28 Medical Diagnosis: s/p Cardiac Arrest Onset Date: Nov 28, 2022 Therapy Diagnosis Therapy Diagnosis: weakness, unstable gait/balance Precautions Precautions/Isolations: Fall Prevention, Standard Precautions Weight Bear Status Weight Bearing Restriction: Full Weight Bearing Referral Physician: Dr. Murphy Referral Reason: Activity Tolerance, Self Care, Evaluation/Treatment Medical History Additional Medical History Falls,anxiety, cardiac arrest Current History complicated hospital course Reviewed History: Yes Social History Home: Multilevel Current Living Status: Spouse Entry Into Home: Stairs Without Railing Steps Into Home: 1 Steps Inside Home: 14 ADL-Prior Level of Function SCALE: Activities may be completed with or without assistive devices. 7-Krvkuybkmr-rxnmanr completes the activity by him/herself with no assistance from a helper. 5-Set-up or Clean-up Assistance-helper sets up or cleans up; patient completes activity. [place] assists only prior to or following the activity. 4-Supervision or Touching Assistance-helper provides verbal cues and/or touching/steadying and/or contact guard assistance as patient completes activity. Assistance may be provided throughout the activity or intermittently. 3-Partial/Moderate Assistance-helper does LESS THAN HALF the effort. [place] lifts, holds or supports trunk or limbs, but provides less than half the effort. 2-Substantial/Maximal Assistance-helper does MORE THAN HALF the effort. [place] lifts or holds trunk or limbs and provides more than half the effort. 6-Hmckyciib-taptet does ALL the effort. Patient does none of the effort to complete the activity. Or, the assistance of 2 or more helpers is required for the patient to complete the activity. If activity was not attempted, code reason: 7-Patient Refused. 9-Not Applicable-not attempted and the patient did not perform the activity b efore the current illness, exacerbation or injury. 10-Not Attempted due to Environmental Limitations-(lack of equipment, weather restraints, etc.). 88-Not Attempted due to Medical Conditions or Safety Concerns. 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 Self: Yes OT Current Status Subjective "MELODY, and "LA'audie because it is [place]" agrees to OT and believes he is going home today and he is stable Mental Status/Objective Patient Orientation: Person, Place, Situation Attachments: IV, Oxygen (requires monitoring for safety), Telemetry Current Glasses/Contacts: Yes Upper Extremity ROM BUE ROM WFLS Upper Extremity Strength 4/5 grossly BUE ADL-Treatment Eating (QC): 5 Oral Hygiene (QC): 4 Shower/Bathe Self (QC): 7 Upper Body Dressing (QC): 4 Lower Body Dressing (QC): 3 On/Off Footwear (QC): 4 Toileting Hygiene (QC): 3 Impulsive, decreased safety awareness, unrealistic expectations with current medical conditions. Education OT Patient Education: Correct positioning, Energy conservation, Exercise program, Modified ADL techniques, Progress toward Goal/Update tx plan, Purpose of tx/functional activities, Reviewed precautions, Rehab process, Safety issues, Transfer techniques, Use of adapted equipment Teaching Recipient: Patient Teaching Methods: Demonstration, Discussion Response to Teaching: Verbalize Understanding, Reinforcement Needed OT Snf Goals Tax Collection Coordinator Goals Eating (QC): 6 Oral Hygiene (QC): 6 Toileting Hygiene (QC): 6 Shower/Bathe Self (QC): 5 Upper Body Dressing (QC): 6 Lower Body Dressing (QC): 6 On/Off Footwear (QC): 6 1=Demonstrate adherence to instructed precautions during ADL tasks. 2=Patient will verbalize/demonstrate understanding of assistive devices/modifications for ADL. 3=Patient will improve strength/tolerance for activity to enable patient to perform ADL's. OT Education/Plan Problem List/Assessment Assessment: Decreased Activ Tolerance, Decreased Safety Aware, Impaired Cognition, Impaired Coordination, Impaired Funct Balance, Impaired Self-Care Skills Discharge Recommendations Plan/Recommendations: Continue POC Treatment Plan/Plan of Care Treatment,Training & Education: Yes Patient would benefit from OT for education, treatment and training to promote independence in ADL's, mobility, safety and/or upper extremity function for ADL's. Plan of Care: ADL Retraining, Cognitive Retraining, Concurrent Therapy, Functional Mobility, Group Exercise/Act as Ind, UE Funct Exercise/Act, UE Neur omus Re-Ed/Coord Treatment Duration: Dec 12, 2022 Frequency: 3 times per week (3-5 times per week) Estimated Hrs Per Day: .25 hour per day Agreement: Yes Rehab Potential: Fair Remains in chair w/ extensive education to use call light and safety measures explained. Time Start Time: 14:35 Stop Time: 14:53 DATE: Dec 02, 2022 Total Time Billed (hr/min): 18 Billed Treatment Time EVM 18 min CHRIS NG OT Dec 02, 2022 16:53
[2022-12-02 19:45] VITALS: BP 140/88
[2022-12-02 19:58] VITALS: BP 119/51
[2022-12-02] MEDS: MELATONIN 3 MG TABLET PO PRN (21:00)
[2022-12-03] VITALS (8 sets, daily range): BP systolic 120–192; BP diastolic 58–88
[2022-12-03] MEDS: HYDROmorphone 2 MG/ML VIAL (DILAUDID) IV PRN ×2 (00:38→18:19)
[2022-12-03] MEDS ORDERED: WATER (STERILE) FOR INJ 10 ML BTL INJ SCH (01:15)
[2022-12-03] MEDS ORDERED: ZIPRASIDONE 20 MG INJ (GEODON) VIAL IM PRN (01:15)
[2022-12-03] MEDS ORDERED: ZIPRASIDONE 20 MG INJ (GEODON) VIAL IM ONE (01:17)
[2022-12-03] MEDS ORDERED: WATER (STERILE) FOR INJECTION 20 ML ONE (01:18)
[2022-12-03] MEDS ORDERED: LORazepam INJ 2 MG/ML (ATIVAN) VIAL IM PRN (04:15)
[2022-12-03] MEDS: FUROSEMIDE 40 MG/4 ML INJ (LASIX) IVP SCH (05:28)
[2022-12-03] MEDS ORDERED: MAGNESIUM 1 GM/100 ML IVPB 100 ML IV SCH (06:00)
[2022-12-03] MEDS ORDERED: POTASSIUM CL 10MEQ/50ML IVPB 50 ML IV SCH (06:00)
[2022-12-03] MEDS ORDERED: KCL 20 MEQ TAB (K-DUR) PO SCH (06:00)
[2022-12-03 06:25] LABS: BASOPHILS % (AUTO) 0 % (0-10); EOSINOPHILS # (AUTO) 0.1 10^3/uL (0.0-0.3); EOSINOPHILS % (AUTO) 1 % (0-10); HEMATOCRIT 38 % (40-54); HEMOGLOBIN 13.3 g/dL (13.3-17.7); LYMPHOCYTES # (AUTO) 2.5 10^3/uL (1.0-4.0); LYMPHOCYTES % (AUTO) 21 % (12-44); MEAN CORPUSCULAR HEMOGLOBIN 31 pg (25-34); MEAN CORPUSCULAR HGB CONC 35 g/dL (32-36); MEAN CORPUSCULAR VOLUME 90 fL (80-99); MEAN PLATELET VOLUME 10.7 fL (9.0-12.2); MONOCYTES # (AUTO) 1.7 10^3/uL (0.0-1.0); MONOCYTES % (AUTO) 14 % (0-12); NEUTROPHILS # (AUTO) 7.5 10^3/uL (1.8-7.8); NEUTROPHILS % (AUTO) 63 % (42-75); PLATELET COUNT 277 10^3/uL (130-400); WHITE BLOOD COUNT 11.8 10^3/uL (4.3-11.0)
[2022-12-03 06:40] LABS: ALBUMIN 3.6 GM/DL (3.2-4.5); POTASSIUM 3.1 MMOL/L (3.6-5.0)
[2022-12-03 06:41] LABS: CALCIUM 8.7 MG/DL (8.5-10.1)
[2022-12-03 06:42] LABS: TOTAL PROTEIN 6.1 GM/DL (6.4-8.2)
[2022-12-03 06:44] LABS: BILIRUBIN,TOTAL 1.2 MG/DL (0.1-1.0)
[2022-12-03 06:46] LABS: CREATININE SERUM 1.1 MG/DL (0.60-1.30)
[2022-12-03 06:49] LABS: MAGNESIUM 2.2 MG/DL (1.6-2.4)
--- NOTE | 2022-12-03 07:44 | Progress Note - Hospitalist ---
WLIFREDO VILLANUEVA 12/03/22 0744: Subjective HPI/CC On Admission Date Seen by Provider: Dec 03, 2022 Time Seen by Provider: 08:30 CC: s/p cardiac arrest with NSTEMI Subjective/Events-last exam Mr. Hawkins is a 72 yo male with a pmhx of PD and COPD admitted for s/p ROSC cardiac arrest. Per nursing note pt became increasingly confused and agitated 12/02/22 at around 2300. Pt was having A/V hallucinations and patient was exit seeking and believed he was being kidnapped. Multiple attempts to reorient were unsuccessful. Pt received IM geodon and Ativan with minimal effectiveness. Pt desated last night when he would remove his oxygen. Today patient is oriented and sitting in chair comfortably. He reports that he is now only experiencing CP when he coughs and his SOB has improved. Pt denies any N/V/, dizziness, weakness. Pt notes that he would like to go home. No other complaints. Objective Exam Vital Signs Vital Signs Date Time Temp Pulse Resp B/P (MAP) Pulse Ox O2 Delivery O2 Flow Rate FiO2 12/03/22 07:23 51 19 120/76 (91) 93 Nasal Cannula 3.50 12/03/22 04:00 35.4 12/02/22 19:45 32 Capillary Refill : Less Than 3 Seconds General Appearance: No Apparent Distress, WD/WN HEENT: PERRL/EOMI Neck: Normal Inspection, Non Tender, Supple Respiratory: No Accessory Muscle Use, No Respiratory Distress, Other (coarse breath sounds throughout ) Cardiovascular: Regular Rate, Rhythm, No Edema, No Murmur, Normal Peripheral Pulses Gastrointestinal: Normal Bowel Sounds, Non Tender, Soft Extremity: Normal Capillary Refill, No Pedal Edema Neurologic/Psychiatric: Alert, Oriented x3 Skin: Normal Color, Warm/Dry Lymphatic: No Adenopathy Results/Procedures Lab Laboratory Tests 12/03/22 06:15 Patient resulted labs reviewed. Imaging: Reviewed Imaging Films, Reviewed Imaging Report Assessment/Plan Assessment and Plan Assess & Plan/Chief Complaint Acute on chronic respiratory failure Bradycardias s/p cardiac arrest s/p ROSC without intubation required NSTEMI declines cardiac cath currently Tremor/PD? HTN HLP COPD Smoker Chronic debility New onset Afib RVR Plan: Electrolyte replacement Continue home meds as indicated Dr Santiago appreciated Pain meds prn EICU appreciated BiPAP not tolerated, continue 3L via NC. Oxygen upon discharge D/c BB due to bradycardia OAC with eliqus. Stop lovenox Continue Plavix and statin Code status: DNR Disposition: likey 1-2 midnights pending pt status CRISTA ON DO 12/04/22 0452: Supervisory-Addendum Brief Verification & Attestation Participated in pt care: history, MDM, physical Personally performed: exam, history, MDM, supervision of care Care discussed with: Medical Student Procedures: n/a Results interpretation: Verified all documentation Verification and Attestation of Medical Student E/M Service A medical student performed and documented this service in my presence. I reviewed and verified all information documented by the medical student and made modifications to such information, when appropriate. I personally performed the physical exam and medical decision making. Crista No, Dec 04, 2022,04:52 WILFREDO VILLANUEVA Dec 03, 2022 07:44 CRISTA NO DO Dec 04, 2022 04:52
[2022-12-03] MEDS: meTOproloL SUCCINATE 50 MG (TOPROL XL) TAB PO SCH (08:59)
[2022-12-03] MEDS: lisINopril 20 MG (PRINIVIL) TABLET PO SCH (08:59)
[2022-12-03] MEDS: ASPIRIN 81 MG CHEW (CHILDREN'S ASA) PO SCH (08:59)
[2022-12-03] MEDS: SENNOSIDES 8.6 MG (SENOKOT) TAB PO SCH ×2 (08:59→19:57)
[2022-12-03] MEDS: APIXABAN 5 MG (ELIQUIS) TABLET PO SCH ×2 (09:00→19:57)
[2022-12-03] MEDS ORDERED: DIGOXIN 0.125 MG (LANOXIN) TAB PO SCH (09:00)
[2022-12-03] MEDS: DOCUSATE SODIUM 100 MG (COLACE) CAP PO SCH ×2 (09:00→19:57)
[2022-12-03] MEDS: KCL 10 MEQ TAB (MICRO K) PO SCH ×2 (09:00→19:57)
[2022-12-03] MEDS ORDERED: KCL 20 MEQ TAB (K-DUR) PO NR ×3 (10:00→15:00)
[2022-12-03] MEDS ORDERED: KCL 10 MEQ TAB (MICRO K) PO NR (10:00)
[2022-12-03] MEDS ORDERED: FURO40TA4 PO (10:20)
[2022-12-03] MEDS ORDERED: POTA-51 PO (10:20)
[2022-12-03] MEDS ORDERED: ASPI81TA64 PO (10:20)
[2022-12-03] MEDS ORDERED: MTP25TSR PO (10:20)
[2022-12-03] MEDS ORDERED: APIX5TAB PO (10:20)
[2022-12-03] MEDS ORDERED: METO50TA7 PO (10:20)
[2022-12-03] MEDS ORDERED: LISI20TA26 PO (10:20)
--- NOTE | 2022-12-03 10:24 | Discharge Inst-Cardiology ---
Discharge Inst-Cardiac Discharge Medications New Medications: Potassium Chloride (Potassium Chloride) 20 Meq Tablet.er 20 MEQ PO DAILY, #30 TAB 5 Refills Apixaban (Eliquis) 5 Mg Tablet 5 MG PO BID, #60 TAB 5 Refills Aspirin (Children's Aspirin) 81 Mg Tab.chew 81 MG PO DAILY, #30 TAB 5 Refills Furosemide (Furosemide) 40 Mg Tablet 80 MG PO DAILY, #30 TAB 5 Refills Lisinopril (Lisinopril) 20 Mg Tablet 20 MG PO DAILY, #30 TAB 5 Refills Metoprolol Succinate (Metoprolol Succinate) 50 Mg Tab.er.24h 50 MG PO DAILY, #30 TAB 5 Refills Metoprolol Succinate (Metoprolol Succinate) 25 Mg Tab.er.24h 25 MG PO HS, #30 TAB 5 Refills Continued Medications: Atorvastatin Calcium (Atorvastatin Calcium) 40 Mg Tablet 40 MG PO HS, TAB Discontinued Medications: Amlodipine Besylate (Amlodipine Besylate) 10 Mg Tablet 10 MG PO HS, CAP New, Converted or Re-Newed RX: Transmitted to Pharmacy Patient Instructions Patient Instructions: DO NOT DRIVE OR OPERATE HEAVY EQUIPMENT UNTIL AFTER YOUR FOLLOW UP APPOINTMENT WITH DR. CARVALHO IN 2 WEEKS LAB: BMP AND MAG LEVEL IN 2 WEEKS POONAM LWA Dec 03, 2022 10:24
--- NOTE | 2022-12-03 12:34 | Progress Note - Cardiology ---
Cardiology SOAP Progress Note Subjective: No cp or palp or syncope or shortness of breath Does not wish to wear tele or stay in the hospital any longer Denies n/v/d Denies focal weakness Wants to be discharged Objective: I&O/Vital Signs 12/03/22 12/03/22 12/03/22 12/03/22 01:00 04:00 04:05 07:23 Temp 35.4 Pulse 80 64 51 Resp 18 19 B/P (MAP) 130/58 (82) 120/76 (91) Pulse Ox 84 91 93 O2 Delivery Room Air Nasal Cannula Nasal Cannula O2 Flow Rate 3.00 3.50 12/03/22 11:21 Temp 37.5 Pulse 67 Resp 18 B/P (MAP) 159/70 (99) Pulse Ox 93 O2 Delivery Nasal Cannula O2 Flow Rate 3.50 12/03/22 00:00 Intake Total 450 ml Output Total 400 ml Balance 50 ml Constitutional: AAO x 3, well-developed, well-nourished Respiratory: No accessory muscle use; chest expansion is symmetric, rhonchi (expiratory), rales (bibasilar), other (on BiPAP that was removed for a few minutes to allow conversation during which he maintained normal oxygenation; BiPAP then replaced) Cardiovascular: irregularly irregular, S1 and S2, systolic murmur (soft SHAYLA at card base) Gastrointestional: No tender; soft; No guarding, No rebound; audible bowel sounds Extremities: No clubbing, No cyanosis, No significant edema Neurologic/Psychiatric: oriented x 3 (Intermittently confused, but alert and oriented at the time of this exam), other (moves all limbs) Skin: No rash on exposed areas, No ulcerations on exposed areas Results/Procedures: Labs Laboratory Tests 12/02/22 16:08: Glucometer 103 12/02/22 20:42: Glucometer 111H 12/03/22 06:15: White Blood Count 11.8H, Red Blood Count 4.25L, Hemoglobin 13.3, Hematocrit 38L, Mean Corpuscular Volume 90, Mean Corpuscular Hemoglobin 31, Mean Corpuscular Hemoglobin Concent 35, Red Cell Distribution Width 12.5, Platelet Count 277, Mean Platelet Volume 10.7, Immature Granulocyte % (Auto) 1, Neutrophils (%) (Auto) 63, Lymphocytes (%) (Auto) 21, Monocytes (%) (Auto) 14H, Eosinophils (%) (Auto) 1, Basophils (%) (Auto) 0, Neutrophils # (Auto) 7.5, Lymphocytes # (Auto) 2.5, Monocytes # (Auto) 1.7H, Eosinophils # (Auto) 0.1, Basophils # (Auto) 0.0, Immature Granulocyte # (Auto) 0.1, Sodium Level 139, Potassium Level 3.1L, Chloride Level 102, Carbon Dioxide Level 25, Anion Gap 12, Blood Urea Nitrogen 41H, Creatinine 1.10, Estimat Glomerular Filtration Rate 70, BUN/Creatinine Ratio 37, Glucose Level 112H, Calcium Level 8.7, Corrected Calcium 9.0, Magnesium Level 2.2, Total Bilirubin 1.2H, Aspartate Amino Transf (AST/SGOT) 18, Alanine Aminotransferase (ALT/SGPT) 17, Alkaline Phosphatase 41, Total Protein 6.1L, Albumin 3.6 Microbiology 11/30/22 Gram Stain - Final, Complete 11/30/22 Sputum Culture - Final, Complete Usual upper respiratory saranya 11/27/22 Blood Culture - Preliminary, Resulted No growth 11/27/22 Urine Culture - Final, Complete NO GROWTH Laboratory Tests 12/02/22 05:16 12/03/22 06:15 A/P: Assessment: PAF - first dx on tele of 12-01-22 - OAC with Eliquis - rate control with beta-ale Cardio-resp arrest on 11/27/22 - treated with shocks through AED and CPR; rhythm unknown during arrest but suspected to be ventricular arrhythmia (since AED gave shocks) Ac NSTEMI - treated conservatively only per patient request Ac systolic CHF Sinus node dysfunction: sinus marcell, PAF (with spontaneously controlled vent response) H/o CAD - reports h/o [place] several years ago (states 80s or 90s); had card cath but states did not receive any stents (does not have good recollection of events from that time) - echo on 11/28/22: LVEF 50%, distal septal and apical hypokinesis Chronic smoker of cigarettes - family reports h/o COPD Hypertension Post-CPR chest wall pain NOTE: At the time of my exam on 11/29/22, he requested DNR status and to keep our focus on alleviating any suffering he may face (see note of that date) Plan: * Has been refusing tele since last night * Currently is taking meds and says will take it at home but says he must be discharged * Tele (before removal by patient) was showing controlled vent response. Mildly bradycardic early am. Therefore, we d/c'd dig and reduced beta-ale * Eliquis for stroke prophylaxis. Aspirin continued. Plavix stopped after starting Eliquis to reduce risk of bleeding. Currently on Eliquis bid and aspirin daily * Continue statin * Advised avoidance of tobacco * Advised to avoid driving, operating machinery or climbing ladders/heights until further recs * Replenish electrolytes * Lasix changed to oral and daily K increased * Close outpt f/u advised * Questions answered TONY CARVALHO MD FACP [facility] CCDS Dec 03, 2022 12:34
--- NOTE | 2022-12-03 14:47 | Physical Therapy Progress Note ---
Therapy Progress Note Patient more alert this p.m. Patient observed up with OT and RT ambulating and performing balance activity. PT will attempt tomorrow a.m. No PT treatment rendered. ODILON MARINELLI PT Dec 03, 2022 14:47
--- NOTE | 2022-12-03 15:05 | Occupational Ther Daily Note ---
OT Current Status-Daily Note Subjective UP IN RECLINER, ENERGETIC AND AGREEABLE TO OT Mental Status/Objective Patient Orientation: Person, Place, Time, Situation ADL-Treatment Therapy Code Descriptions/Definitions Functional [place] Measure: 0=Not Assessed/NA 4=Minimal Assistance 1=Total Assistance 5=Supervision or Setup 2=Maximal Assistance 6=Modified [place] 3=Moderate Assistance 7=Complete IndependenceSCALE: Activities may be completed with or without assistive devices. 0-Gvhzwstxdl-jyaaats completes the activity by him/herself with no assistance from a helper. 5-Set-up or Clean-up Assistance-helper sets up or cleans up; patient completes activity. [place] assists only prior to or following the activity. 4-Supervision or Touching Assistance-helper provides verbal cues and/or touching/steadying and/or contact guard assistance as patient completes activity. Assistance may be provided throughout the activity or intermittently. 3-Partial/Moderate Assistance-helper does LESS THAN HALF the effort. [place] lifts, holds or supports trunk or limbs, but provides less than half the effort. 2-Substantial/Maximal Assistance-helper does MORE THAN HALF the effort. [place] lifts or holds trunk or limbs and provides more than half the effort. 0-Ftaatcsrv-cwibhp does ALL the effort. Patient does none of the effort to complete the activity. Or, the assistance of 2 or more helpers is required for the patient to complete the activity. If activity was not attempted, code reason: 7-Patient Refused. 9-Not Applicable-not attempted and the patient did not perform the activity before the current illness, exacerbation or injury. 10-Not Attempted due to Environmental Limitations-(lack of equipment, weather restraints, etc.). 88-Not Attempted due to Medical Conditions or Safety Concerns. 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 2=Patient will verbalize/demonstrate understanding of assistive devices/modifications for ADL. 3=Patient will improve strength/tolerance for activity to enable patient to perform ADL's. OT Education/Plan Discharge Recommendations Plan/Recommendations: Continue POC Treatment Plan/Plan of Care Patient would benefit from OT for education, treatment and training to promote independence in ADL's, mobility, safety and/or upper extremity function for ADL's. Plan of Care: ADL Retraining, Cognitive Retraining, Concurrent Therapy, Functional Mobility, Group Exercise/Act as Ind, UE Funct Exercise/Act, UE Neuromus Re-Ed/Coord Treatment Duration: Dec 12, 2022 Frequency: 3 times per week (3-5 times per week) Estimated Hrs Per Day: .25 hour per day Agreement: Yes Rehab Potential: Fair PATIENT REPORTS ENJOYABLE SESSION AND REPEATS HEAD/SHOULDERS/KNEES AND TOES SEQUENCE W/ pct Time Start Time: 13:55 Stop Time: 14:10 DATE: Dec 03, 2022 Total Time Billed (hr/min): 15 Billed Treatment Time FA 15 MIN CHRIS NG OT Dec 03, 2022 15:05
[2022-12-04] VITALS: BP_SYST 160; BP_SYST 190; BP_DIAS 83; BP_DIAS 84
[2022-12-04 03:30] VITALS: BP 133/75
--- NOTE | 2022-12-04 05:52 | Discharge Summary ---
Discharge Summary Hospital Course Was the Problem List Reviewed?: Yes Problems/Dx: (1) Cardiac arrest Status: Acute (2) History of CAD (coronary artery disease) Status: Acute (3) Elevated troponin Status: Acute Hospital Course Date of Admission: Nov 27, 2022 at 21:28 Admission Diagnosis : Family Physician/Provider: Miki Harper MD Date of Discharge: 12/04/22 Discharge Diagnosis: [ ] Hospital Course: Mr. Hawkins is a 68yo male who was brought into the hospital post-CPR after a witnessed collapse. Upon arrival at the ER, the patient appeared to have decreased movement in his left arm and was favoring the right side. EMS reported that the patient had a prior history of heart attack but did not know much about his past medical history. The time from collapse to CPR and AED shocks was unknown. The patient's medical history includes respiratory insufficiency, PAF, acute NSTEMI, acute systolic CHF, sinus node dysfunction, h/o CAD, hypertension, and a chronic smoking history with a reported h/o COPD. During hospital stay the patient was treated conservatively for acute NSTEMI per patient request. An echo on 11/28/22 showed LVEF of 50% with distal septal and apical hypokinesis. The patient has been on a regimen of Dilt., ASA, Plavix, Elida., statin, Lasix, and lisinopril, with electrolyte replacement. At the time of the exam on 11/29/22, the patient requested DNR status and to focus on alleviating any suffering he may face. Mild bradycardia was noted in the sewage disposal engineer, and therefore dig was discontinued, and the beta-ale was reduced. Eliquis was continued for stroke prophylaxis, while Plavix was stopped after starting Eliquis to reduce the risk of bleeding. Electrolyte replacement was given throughout stay. Pt went into one episode of Afib RVR treated with cardezam drip. On 12/02 patient became agitated and multiple non pharmacological attempts were made to reorient the patient without success. Pt was given Geodon and Ativan that night. Pt was better the next morning. Overall, the patient had a complicated medical history, and a plan was established to manage his conditions. The patient's wishes regarding DNR status were respected, and the patient was discharged with instructions for follow-up care. WILFREDO VILLANUEVA Labs and Pending Lab Test: Laboratory Tests 12/03/22 06:15: White Blood Count 11.8H, Red Blood Count 4.25L, Hemoglobin 13.3, Hematocrit 38L, Mean Corpuscular Volume 90, Mean Corpuscular Hemoglobin 31, Mean Corpuscular Hemoglobin Concent 35, Red Cell Distribution Width 12.5, Platelet Count 277, Mean Platelet Volume 10.7, Immature Granulocyte % (Auto) 1, Neutrophils (%) (Auto) 63, Lymphocytes (%) (Auto) 21, Monocytes (%) (Auto) 14H, Eosinophils (%) (Auto) 1, Basophils (%) (Auto) 0, Neutrophils # (Auto) 7.5, Lymphocytes # (Auto) 2.5, Monocytes # (Auto) 1.7H, Eosinophils # (Auto) 0.1, Basophils # (Auto) 0.0, Immature Granulocyte # (Auto) 0.1, Sodium Level 139, Potassium Level 3.1L, Chloride Level 102, Carbon Dioxide Level 25, Anion Gap 12, Blood Urea Nitrogen 41H, Creatinine 1.10, Estimat Glomerular Filtration Rate 70, BUN/Creatinine Ratio 37, Glucose Level 112H, Calcium Level 8.7, Corrected Calcium 9.0, Magnesium Level 2.2, Total Bilirubin 1.2H, Aspartate Amino Transf (AST/SGOT) 18, Alanine Aminotransferase (ALT/SGPT) 17, Alkaline Phosphatase 41, Total Protein 6.1L, Albumin 3.6 Microbiology 11/30/22 Gram Stain - Final, Complete 11/30/22 Sputum Culture - Final, Complete Usual upper respiratory saranya 11/27/22 Blood Culture - Final, Complete No growth 11/27/22 Urine Culture - Final, Complete NO GROWTH Home Meds Active Potassium Chloride 20 Meq Tablet.er 20 Meq PO DAILY Furosemide 40 Mg Tablet 80 Mg PO DAILY Children's Aspirin (Aspirin) 81 Mg Tab.chew 81 Mg PO DAILY Lisinopril 20 Mg Tablet 20 Mg PO DAILY Metoprolol Succinate 25 Mg Tab.er.24h 25 Mg PO HS Metoprolol Succinate 50 Mg Tab.er.24h 50 Mg PO DAILY Eliquis (Apixaban) 5 Mg Tablet 5 Mg PO BID Reported Docusate Sodium 100 Mg Capsule 200 Mg PO BID Aspirin EC (Aspirin) 81 Mg Tablet.dr 81 Mg PO HS Oxycodone-Acetaminophen 10-325 (Oxycodone HCl/Acetaminophen) 10 Mg-325 Mg Tablet 1 Each PO Q4H PRN 7 Days Propranolol HCl 20 Mg Tablet 20 Mg PO TID PRN Atorvastatin Calcium 40 Mg Tablet 40 Mg PO HS Amlodipine Besylate 10 Mg Tablet 10 Mg PO HS Assessment/Pt Instructions PCP 1 week Discharge Planning: <30 minutes discharge planning Discharge Instructions Discharge Diet: No Restrictions Activity as Tolerated: Yes Discharge Physical Examination Vital Signs Vital Signs Date Time Temp Pulse Resp B/P (MAP) Pulse Ox O2 Delivery O2 Flow Rate FiO2 12/04/22 03:30 36.6 71 22 133/75 (94) 90 Room Air 12/03/22 11:21 3.50 12/02/22 19:45 32 General Appearance: No Apparent Distress, WD/WN Allergies: Coded Allergies: No Known Drug Allergies (Unverified , 03/07/12) Discharge Summary Date of Admission Nov 27, 2022 at 21:28 Date of Discharge Discharge Date: Dec 04, 2022 Admission Diagnosis Assessment: s/p cardiac arrest s/p ROSC without intubation required NSTEMI declines cardiac cath currently Tremor/PD? HTN HLP COPD Smoker Chronic debility Plan: Home meds Dr Santiago appreciated Pain meds O2 EICU appreciated Discharge Diagnosis (1) Cardiac arrest Status: Acute (2) History of CAD (coronary artery disease) Status: Acute (3) Elevated troponin Status: Acute FARTUN NO DO Dec 04, 2022 05:52
--- NOTE | 2022-12-04 05:52 | D/C HH Face to Face Order ---
D/C HH Face to Face Orders Reconcile Patient Problems Problems Reviewed?: Yes Instructions for Patient HH Patient Instructions/FollowUp: PCP 1 week Physician to follow Patient: [facility] Discharge Diet for Home: No Restrictions Patient Problems: COPD CAD AF Patient Data-Allergies,Ht & Wt Patient Allergies: Coded Allergies: No Known Drug Allergies (Unverified , 03/07/12) Home Health Need/Face to Face Date of Face to Face: Dec 04, 2022 Clinical Findings: Generalized weakness and fatigue, Instability, Muscle weakness I have seen Pt [id number]: Yes Discharged To: Home Diagnosis/Conditions: COPD CAD AF Patient is Homebound due to: CognItive deficits, Muscle weakness Homebound Status Due to the above stated illness, injury or surgical procedure (medical condition or diagnosis) and associated clinical findings, the patient is homebound because of his/her inability to leave home except with aid of a supportive device and/or person AND leaving the home requires a considerable and taxing effort or is medically contraindicated. Pt req the following assistanc: [facility] Nursing Orders Home Health Services Order: Nursing Services, Scouring Train Operator Chief-Evaluate & Treat, Physical Therapy-Evaluate & Treat Home Health Infusion Therapy Line Start Date: Dec 02, 2022 Certify Stmt I certify that this patient is under my care and that I, a nurse practitioner or a physician; a physiotherapist's assistant working with me, had a face to face encounter that - meets the physician face to face encounter requirements with this patient as dated. FARTUN NO DO Dec 04, 2022 05:52
[2022-12-04] MEDS: ASPIRIN 81 MG CHEW (CHILDREN'S ASA) PO SCH (07:50)
--- NOTE | 2022-12-04 07:50 | Progress Note ---
WILFREDO VILLANUEVA 12/04/22 0750: Progress Note Mr. Hawkins is a 68yo male who was brought into the hospital post-CPR after a witnessed collapse. Upon arrival at the ER, the patient appeared to have decreased movement in his left arm and was favoring the right side. EMS reported that the patient had a prior history of heart attack but did not know much about his past medical history. The time from collapse to CPR and AED shocks was unknown. The patient's medical history includes respiratory insufficiency, PAF, acute NSTEMI, acute systolic CHF, sinus node dysfunction, h/o CAD, hypertension, and a chronic smoking history with a reported h/o COPD. During hospital stay the patient was treated conservatively for acute NSTEMI per patient request. An echo on 11/28/22 showed LVEF of 50% with distal septal and apical hypokinesis. The patient has been on a regimen of Dilt., ASA, Plavix, Elida., statin, Lasix, and lisinopril, with electrolyte replacement. At the time of the exam on 11/29/22, the patient requested DNR status and to focus on alleviating any suffering he may face. 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 Eliquis was continued for stroke prophylaxis, while Plavix was stopped after starting Eliquis to reduce the risk of bleeding. Electrolyte replacement was given throughout stay. Pt went into one episode of Afib RVR treated with cardezam drip. On 12/02 patient became agitated and multiple non pharmacological attempts were made to reorient the patient without success. Pt was given Geodon and Ativan that night. Pt was better the next morning. Overall, the patient had a complicated medical history, and a plan was established to manage his conditions. The patient's wishes regarding DNR status were respected, and the patient was discharged with instructions for follow-up care. CRISTA NO DO 12/05/22 0651: Supervisory-Addendum Brief Verification & Attestation Participated in pt care: history, MDM, physical Personally performed: exam, history, MDM, supervision of care Care discussed with: Medical Student Procedures: n/a Results interpretation: Verified all documentation Verification and Attestation of Medical Student E/M Service A medical student performed and documented this service in my presence. I reviewed and verified all information documented by the medical student and made modifications to such information, when appropriate. I personally performed the physical exam and medical decision making. Crista No, Dec 05, 2022,06:51 WILFREDO VILLANUEVA Dec 04, 2022 07:50 CRISTA NO DO Dec 05, 2022 06:51
[2022-12-04] MEDS: APIXABAN 5 MG (ELIQUIS) TABLET PO SCH (07:51)
[2022-12-04] MEDS: lisINopril 20 MG (PRINIVIL) TABLET PO SCH (07:51)
[2022-12-04] MEDS: KCL 10 MEQ TAB (MICRO K) PO SCH (07:51)
[2022-12-04] MEDS: SENNOSIDES 8.6 MG (SENOKOT) TAB PO SCH (07:55)
[2022-12-04] MEDS: DOCUSATE SODIUM 100 MG (COLACE) CAP PO SCH (07:55)
[2022-12-04 07:56] VITALS: BP 160/95
[2022-12-04] MEDS ORDERED: FUROSEMIDE 40 MG (LASIX) TAB PO SCH (09:00)
[2022-12-04] MEDS ORDERED: meTOproloL SUCCINATE 50 MG (TOPROL XL) TAB PO SCH (09:00)
== END 2022-12-04 09:25 | disposition home health service (06) | DRG 280 ==
LOC: EDUNIT# 17:16 → ER 17:17 → ICU 21:28 → 4TH 12-01 15:34 → ICU 12-01 23:52 → 4TH 12-02 13:18
PROVIDERS: ADMIT Internal Medicine; ATTEND Internal Medicine
PROC: 5A12012 Performance of Cardiac Output, Single, Manual (ICD-10-PCS; principal; 2022-11-27)
PROC: 5A09357 Assistance with Respiratory Ventilation, Less than 24 Consecutive Hours, Continuous Positive Airway Pressure (ICD-10-PCS; 2022-11-27)
DX: I21.4 Non-ST elevation (NSTEMI) myocardial infarction (principal); I46.9 Cardiac arrest, cause unspecified; J96.20 Acute and chronic respiratory failure, unspecified whether with hypoxia or hypercapnia; I50.21 Acute systolic (congestive) heart failure; I49.01 Ventricular fibrillation; I10 Essential (primary) hypertension; E78.5 Hyperlipidemia, unspecified; J44.9 Chronic obstructive pulmonary disease, unspecified; F17.210 Nicotine dependence, cigarettes, uncomplicated; R53.81 Other malaise; R25.1 Tremor, unspecified; I25.10 Atherosclerotic heart disease of native coronary artery without angina pectoris; Z66 Do not resuscitate; R33.9 Retention of urine, unspecified; R07.89 Other chest pain; I48.0 Paroxysmal atrial fibrillation; Z79.01 Long term (current) use of anticoagulants; I49.5 Sick sinus syndrome; Z79.82 Long term (current) use of aspirin; Z79.899 Other long term (current) drug therapy; Z20.822 Contact with and (suspected) exposure to COVID-19
CPT/HCPCS: 36415; 36600; 70450; 70496; 70498; 71045; 71275; 80053; 80061; 80306; 80320; 81000; 82805; 82947; 83605; 83735; 83880; 84100; 84484; 85007; 85025; 85027; 85610; 85730; 86141; 87040; 87070; 87081; 87088; 87205; 87636; 93005; 93041; 93306; 93970; 94640; 94660; 94761; 96361; 96372; 96374; 96375; 96376